=== PATIENT | female | born 1955 | race Two or more races ===

== ENCOUNTER → 2016-11-06 | Outpatient (CLI) | payer MEDICAID, MEDICARE, OTHER ==
[2015-01-20 00:20] VITALS: BP 214/96
[~2016-11-06] MED LIST: ATOR10TA60 PO; FLUT1DIS IH; INSU100I17 SQ; INSU100V8 SQ; LEVO25TA4 PO; LISI1TAB5 PO; METF500T4 PO
--- NOTE | 2016-11-06 19:50 | CARD ---
APPROVED REPORT EXAM: Two-dimensional and M-mode echocardiogram with Doppler and color Doppler. Other Information Quality : GoodHR: 68bpm Rhythm : NSR INDICATION Fatigue Short of air RISK FACTORS Hypertension Obesity Hyperlipidemia Diabetes 2D DIMENSIONS RVDd2.4 (2.9-3.5cm)Left Atrium(2D)3.3 (1.6-4.0cm) IVSd1.0 (0.7-1.1cm)Aortic Root(2D)2.7 (2.0-3.7cm) LVDd4.1 (3.9-5.9cm)LVOT Diameter2.4 (1.8-2.4cm) PWd1.0 (0.7-1.1cm)LVDs2.4 (2.5-4.0cm) FS (%) 41.1 %SV55.2 ml LVEF(%)70.0 (>50%) Aortic Valve AoV Peak Ryan.150.0cm/sAoV VTI32.2cm AO Peak GR.9.0mmHgLVOT Peak Ryan.108.9cm/s AO Mean GR.5mmHgAVA (VMAX)3.41cm2 Mitral Valve MV E Urihwtnn90.9cm/sMV E Peak Gr.5mmHg MV DECEL [id number] A Dbcbgtcq818.7cm/s MV E Mean Gr.1mmHgE/A Ratio0.7 MV A [id number] Pulmonary Valve PV Peak Wwgqycvx32.6cm/s Pulmonary Vein S1 Nbdrmywc98.9cm/sD2 Jswvbnnv41.7cm/s PVa [id number] LEFT VENTRICLE The left ventricle is normal size. There is normal left ventricular wall thickness. The left ventricu lar systolic function is normal and the ejection fraction is within normal range. The Ejection Fracti on is 70 %. There is normal LV segmental wall motion. Transmitral Doppler flow pattern is Grade I-abn ormal relaxation pattern. RIGHT VENTRICLE The right ventricle is normal size. There is normal right ventricular wall thickness. The right ventr icular systolic function is normal. ATRIA The left atrium is moderately dilated. The right atrium size is normal. The interatrial septum is int act with no evidence for an atrial septal defect or patent foramen ovale as noted on 2-D or Doppler i maging. AORTIC VALVE The aortic valve is mildly sclerotic. The aortic valve is trileaflet. Doppler and Color Flow revealed no significant aortic regurgitation. There is no significant aortic valvular stenosis. MITRAL VALVE Mitral annular calcification is mild. The mitral valve leaflets are thickened. There is no evidence o f mitral valve prolapse. There is no mitral valve stenosis. Doppler and Color Flow revealed no mitral valve regurgitation noted. TRICUSPID VALVE Doppler and Color Flow revealed no tricuspid valve regurgitation noted. Unable to determine pulmonary artery pressure at exam time. PULMONIC VALVE The pulmonic valve is not well visualized but appears to open adequately. Doppler and Color Flow reve aled trace pulmonic valvular regurgitation. GREAT VESSELS The aortic root is normal in size. The ascending aorta is normal in size. The pulmonary artery is nor mal. The IVC is normal in size and collapses >50% with inspiration. PERICARDIAL EFFUSION There is no evidence of significant pericardial effusion. Critical Notification Critical Value: No <Conclusion> The left ventricular systolic function is normal and the ejection fraction is within normal range. The Ejection Fraction is 70 %. Transmitral Doppler flow pattern is Grade I-abnormal relaxation pattern. The left atrium is moderately dilated. The right atrium size is normal. The aortic valve is mildly sclerotic. The aortic valve is trileaflet. Mitral annular calcification is mild. The mitral valve leaflets are thickened. Doppler and Color Flow revealed no mitral valve regurgitation noted. Doppler and Color Flow revealed no tricuspid valve regurgitation noted. Unable to determine pulmonary artery pressure at exam time. The pulmonic valve is not well visualized but appears to open adequately. Doppler and Color Flow revealed trace pulmonic valvular regurgitation. There is no evidence of significant pericardial effusion.
== END | disposition home or self-care (01) ==
LOC: ECHO 10:22
PROVIDERS: ATTEND Internal Medicine Cardiovascular Disease
DX: I51.7 Cardiomegaly (principal); I34.8 Other nonrheumatic mitral valve disorders; E11.9 Type 2 diabetes mellitus without complications; I10 Essential (primary) hypertension; E78.5 Hyperlipidemia, unspecified; E66.9 Obesity, unspecified
CPT/HCPCS: 93306

== ENCOUNTER 2017-04-04 06:53 | Outpatient (CLI) | payer OTHER, MEDICARE ==
[2017-04-04 07:18] LABS: ADD MAN DIFF? NO
[2017-04-04 07:32] LABS: BASO # 0.1 x10^3/uL (0.0-0.2); BASO % 1 % (0-3); EOS # 0.2 x10^3/uL (0.0-0.7); EOS % 3 % (0-3); HEMATOCRIT 29.6 % (36.0-47.0); HEMOGLOBIN 9.6 g/dL (12.0-15.5); LYMPH # 1.5 x10^3/uL (1.0-4.8); LYMPH % 23 % (24-48); MEAN CORPUSCULAR HEMOGLOBIN 28 pg (25-35); MEAN CORPUSCULAR HGB CONC 33 g/dL (31-37); MEAN CORPUSCULAR VOLUME 85 fL (79-100); MONO # 0.4 x10^3/uL (0.0-1.1); MONO % 6 % (0-9); NEUT # 4.5 x10^3uL (1.8-7.7); NEUT % 68 % (31-73); PLATELET COUNT 248 x10^3/uL (140-400); RED BLOOD COUNT 3.48 x10^6/uL (3.50-5.40); RED CELL DISTRIBUTION WIDTH 13.3 % (11.5-14.5); WHITE BLOOD COUNT 6.7 x10^3/uL (4.0-11.0)
[2017-04-04 07:45] LABS: PROTHROMBIN TIME PATIENT 12.9 SEC (11.7-14.0)
[2017-04-04] MEDS ORDERED: MIDAZOLAM HCL/PF 5 MG/5 ML VIAL. (07:53)
[2017-04-04] MEDS ORDERED: NALOXONE 0.4 MG/ML VIAL. (07:54)
[2017-04-04] MEDS ORDERED: fentaNYL PF VIAL 250 MCG/5 ML VIAL (07:54)
[2017-04-04] MEDS ORDERED: FLUMAZENIL 0.5 MG/5 ML VIAL. IV (07:54)
[2017-04-04] MEDS ORDERED: LIDOCAINE WITH 8.4% SOD BICARB 3 ML DISP.SYRIN. IJ ×2 (08:06→08:22)
[2017-04-04] MEDS ORDERED: GELATIN SPONGE SIZE 12-7MM SPONGE. (08:06)
[2017-04-04] MEDS ORDERED: hydrALAZINE 20 MG/ML VIAL. (08:35)
[2017-04-04] MEDS: LIDOCAINE WITH 8.4% SOD BICARB 3 ML DISP.SYRIN. IJ (09:09)
[2017-04-04] MEDS: fentaNYL PF VIAL 250 MCG/5 ML VIAL IV (09:10)
[2017-04-04] MEDS: MIDAZOLAM HCL/PF 5 MG/5 ML VIAL. IV (09:11)
== END 2017-04-04 13:30 | disposition home or self-care (01) ==
LOC: INTRAD 06:53
DX: R80.9 Proteinuria, unspecified (principal); Z79.01 Long term (current) use of anticoagulants; Z88.1 Allergy status to other antibiotic agents
CPT/HCPCS: 36415; 50200; 77012; 85025; 85610; 99152; 99153; J2250; J3010

== ENCOUNTER 2017-04-08 14:41 | Inpatient (IN) | payer OTHER, MEDICARE ==
[2017-04-08 15:20] LABS: ADD MAN DIFF? NO
[2017-04-08 15:22] LABS: BASO # 0.1 x10^3/uL (0.0-0.2); BASO % 1 % (0-3); EOS # 0.1 x10^3/uL (0.0-0.7); EOS % 2 % (0-3); HEMATOCRIT 27.6 % (36.0-47.0); HEMOGLOBIN 9.2 g/dL (12.0-15.5); LYMPH # 1.2 x10^3/uL (1.0-4.8); LYMPH % 16 % (24-48); MEAN CORPUSCULAR HEMOGLOBIN 29 pg (25-35); MEAN CORPUSCULAR HGB CONC 34 g/dL (31-37); MEAN CORPUSCULAR VOLUME 86 fL (79-100); MONO # 0.4 x10^3/uL (0.0-1.1); MONO % 5 % (0-9); NEUT # 5.5 x10^3uL (1.8-7.7); NEUT % 76 % (31-73); PLATELET COUNT 259 x10^3/uL (140-400); RED BLOOD COUNT 3.22 x10^6/uL (3.50-5.40); WHITE BLOOD COUNT 7.4 x10^3/uL (4.0-11.0)
[2017-04-08 15:30] LABS: ANION GAP 13 (6-14); BLOOD UREA NITROGEN 46 mg/dL (7-20); BUN/CREATININE RATIO 14 (6-20); CARBON DIOXIDE 19 mmol/L (21-32); CHLORIDE 106 mmol/L (98-107); CREATININE 3.3 mg/dL (0.6-1.0); GFR 14.1; GLUCOSE 169 mg/dL (70-99); POTASSIUM 4.2 mmol/L (3.5-5.1); SODIUM 138 mmol/L (136-145)
[2017-04-08 15:36] LABS: ALBUMIN 2.4 g/dL (3.4-5.0); ALBUMIN/GLOBULIN RATIO 0.5 (1.0-1.7); ALK PHOS 113 U/L (46-116); ALT (SGPT) 15 U/L (14-59); AST (SGOT) 17 U/L (15-37); TOTAL BILIRUBIN 0.2 mg/dL (0.2-1.0); TOTAL PROTEIN 6.8 g/dL (6.4-8.2)
[2017-04-08 15:36] LABS: D-DIMER 1.51 ug/mlFEU (0.00-0.50)
[2017-04-08 15:41] LABS: TROPONINI < 0.017 ng/mL (0.000-0.055)
[2017-04-08 15:48] LABS: NT-PRO BNP 2374 pg/mL (0-124)
[2017-04-08 15:48] LABS: CKMB INDEX 1.1 % (0-4); CKMB MASS 2.7 ng/mL (0.0-3.6); CREATINE KINASE 250 U/L (26-192)
[2017-04-08 16:14] LABS: BACTERIA,URINE FEW /HPF (0-FEW); BILIRUBIN,URINE NEGATIVE (NEG); CLARITY,URINE CLEAR; COLOR,URINE YELLOW; GLUCOSE,URINE 500 mg/dL (NEG); NITRITE,URINE NEGATIVE (NEG); PH,URINE 6.5; PROTEIN,URINE >=300 mg/dL (NEG-TRACE); SQUAMOUS EPITHELIAL CELL,UR MOD /LPF; UROBILINOGEN,URINE 0.2 mg/dL (0.2 mg/dL); WBC,URINE OCC /HPF (0-4)
[2017-04-08 16:15] LABS: HYALINE CASTS, URINE FEW /HPF
[2017-04-08] MEDS ORDERED: ONDANSETRON PF 4 MG/2 ML VIAL. IV (16:15)
[2017-04-08] MEDS ORDERED: ACETAMINOPHEN 325 MG TABLET. PO (16:15)
[2017-04-08 17:44] LABS: POC GLUCOSE 110 mg/dL (70-99)
[2017-04-08] MEDS: INSULIN ASPART 300 UNITS/3 ML INSULN.PEN SQ (18:09)
[2017-04-08] MEDS: BUDESONIDE 0.5 MG/2 ML NEBU. NEB (20:04)
[2017-04-08] MEDS: ALBUTEROL SULFATE 2.5 MG/3 ML NEBU. NEB (20:04)
[2017-04-08] MEDS: ATORVASTATIN CALCIUM 40 MG TABLET. PO (20:29)
[2017-04-08] MEDS: METOPROLOL TART IMMED RELEASE 50 MG TABLET. PO (20:30)
[2017-04-08] MEDS: INSULIN DETEMIR 300 UNITS/3 ML INSULN.PEN. SQ (20:38)
[2017-04-08] MEDS ORDERED: NON FORMULARY ITEM (Fluticasone/Salmeterol (Advair 250-50 Diskus) 1 INH) IH (21:00)
[2017-04-08 21:05] LABS: POC GLUCOSE 56 mg/dL (70-99)
[2017-04-08 21:05] LABS: POC GLUCOSE 50 mg/dL (70-99)
[2017-04-08 21:55] LABS: POC GLUCOSE 69 mg/dL (70-99)
[2017-04-08 21:55] LABS: POC GLUCOSE 61 mg/dL (70-99)
[2017-04-08 23:18] LABS: POC GLUCOSE 70 mg/dL (70-99)
[2017-04-09 03:01] LABS: POC GLUCOSE 50 mg/dL (70-99)
[2017-04-09] MEDS: DEXTROSE 50% 25 GM / 50ML DISP.SYRIN. IV (03:02)
[2017-04-09 04:03] LABS: POC GLUCOSE 81 mg/dL (70-99)
[2017-04-09 05:42] LABS: ADD MAN DIFF? NO
[2017-04-09 05:52] LABS: BASO # 0.1 x10^3/uL (0.0-0.2); BASO % 1 % (0-3); EOS # 0.2 x10^3/uL (0.0-0.7); EOS % 2 % (0-3); HEMATOCRIT 25.8 % (36.0-47.0); HEMOGLOBIN 8.4 g/dL (12.0-15.5); LYMPH # 1.1 x10^3/uL (1.0-4.8); LYMPH % 15 % (24-48); MEAN CORPUSCULAR HEMOGLOBIN 28 pg (25-35); MEAN CORPUSCULAR HGB CONC 33 g/dL (31-37); MEAN CORPUSCULAR VOLUME 85 fL (79-100); MONO # 0.5 x10^3/uL (0.0-1.1); MONO % 7 % (0-9); NEUT # 5.4 x10^3uL (1.8-7.7); NEUT % 76 % (31-73); PLATELET COUNT 233 x10^3/uL (140-400); RED BLOOD COUNT 3.04 x10^6/uL (3.50-5.40); WHITE BLOOD COUNT 7.1 x10^3/uL (4.0-11.0)
[2017-04-09] MEDS: LEVOTHYROXINE 25 MCG TABLET. PO (06:06)
[2017-04-09 06:11] LABS: ANION GAP 10 (6-14); BLOOD UREA NITROGEN 45 mg/dL (7-20); CALCIUM 7.9 mg/dL (8.5-10.1); CARBON DIOXIDE 20 mmol/L (21-32); CHLORIDE 109 mmol/L (98-107); CREATININE 3.2 mg/dL (0.6-1.0); GFR 14.6; GLUCOSE 80 mg/dL (70-99); POTASSIUM 4.3 mmol/L (3.5-5.1); SODIUM 139 mmol/L (136-145)
[2017-04-09] MEDS: BUDESONIDE 0.5 MG/2 ML NEBU. NEB ×2 (07:12→20:00)
[2017-04-09] MEDS: ALBUTEROL SULFATE 2.5 MG/3 ML NEBU. NEB ×4 (07:12→20:00)
[2017-04-09 07:37] LABS: POC GLUCOSE 77 mg/dL (70-99)
[2017-04-09] MEDS: amLODIPine BESYLATE 10 MG TABLET PO (09:15)
[2017-04-09] MEDS: METOPROLOL TART IMMED RELEASE 50 MG TABLET. PO ×2 (09:15→22:14)
[2017-04-09 11:24] LABS: POC GLUCOSE 160 mg/dL (70-99)
[2017-04-09] MEDS: FUROSEMIDE 40 MG/4 ML VIAL. IVP (12:15)
[2017-04-09] MEDS: INSULIN ASPART 300 UNITS/3 ML INSULN.PEN SQ ×2 (12:18→16:30)
[2017-04-09 16:35] LABS: POC GLUCOSE 82 mg/dL (70-99)
[2017-04-09] MEDS: SODIUM BICARBONATE 650 MG TABLET. PO ×2 (17:55→22:13)
[2017-04-09 21:22] LABS: POC GLUCOSE 137 mg/dL (70-99)
[2017-04-09] MEDS: ATORVASTATIN CALCIUM 40 MG TABLET. PO (22:13)
[2017-04-09] MEDS: INSULIN DETEMIR 300 UNITS/3 ML INSULN.PEN. SQ (22:18)
[2017-04-09] MEDS: DARBEPOETIN ALFA 60 MCG/0.3 ML DISP.SYRIN. SQ (22:23)
[2017-04-10 05:40] LABS: ANION GAP 14 (6-14); BLOOD UREA NITROGEN 43 mg/dL (7-20); CALCIUM 8.1 mg/dL (8.5-10.1); CARBON DIOXIDE 18 mmol/L (21-32); CHLORIDE 110 mmol/L (98-107); CREATININE 3.1 mg/dL (0.6-1.0); GFR 15.2; GLUCOSE 105 mg/dL (70-99); MAGNESIUM 2.1 mg/dL (1.8-2.4); PHOSPHORUS 4.7 mg/dL (2.6-4.7); SODIUM 142 mmol/L (136-145)
[2017-04-10 05:43] LABS: % SAT IRON 19 % (15-34); IRON,SERUM 29 ug/dL (50-170)
[2017-04-10] MEDS: LEVOTHYROXINE 25 MCG TABLET. PO (06:07)
[2017-04-10] MEDS: BUDESONIDE 0.5 MG/2 ML NEBU. NEB ×2 (07:26→20:00)
[2017-04-10] MEDS: ALBUTEROL SULFATE 2.5 MG/3 ML NEBU. NEB ×4 (07:26→20:00)
[2017-04-10] MEDS: INSULIN ASPART 300 UNITS/3 ML INSULN.PEN SQ ×3 (07:30→18:30)
[2017-04-10] MEDS: SODIUM BICARBONATE 650 MG TABLET. PO ×3 (09:34→20:42)
[2017-04-10] MEDS: amLODIPine BESYLATE 10 MG TABLET PO (09:35)
[2017-04-10] MEDS: METOPROLOL TART IMMED RELEASE 50 MG TABLET. PO ×2 (09:36→20:43)
[2017-04-10] MEDS: FUROSEMIDE 40 MG/4 ML VIAL. IVP ×3 (09:36→22:20)
[2017-04-10 15:51] LABS: POC GLUCOSE 97 mg/dL (70-99)
[2017-04-10] MEDS: IRON POLYSACCHARIDE COMPLEX 150 MG CAPSULE PO (16:51)
[2017-04-10 18:21] LABS: POC GLUCOSE 160 mg/dL (70-99)
[2017-04-10] MEDS: ATORVASTATIN CALCIUM 40 MG TABLET. PO (20:42)
[2017-04-10 21:40] LABS: POC GLUCOSE 118 mg/dL (70-99)
[2017-04-10] MEDS: INSULIN DETEMIR 300 UNITS/3 ML INSULN.PEN. SQ (22:27)
[2017-04-11] MEDS: FUROSEMIDE 40 MG/4 ML VIAL. IVP ×3 (05:42→15:57)
[2017-04-11] MEDS: LEVOTHYROXINE 25 MCG TABLET. PO (05:42)
[2017-04-11 06:25] LABS: ANION GAP 10 (6-14); BLOOD UREA NITROGEN 46 mg/dL (7-20); CALCIUM 7.8 mg/dL (8.5-10.1); CARBON DIOXIDE 22 mmol/L (21-32); CHLORIDE 108 mmol/L (98-107); CREATININE 3.5 mg/dL (0.6-1.0); GFR 13.2; GLUCOSE 82 mg/dL (70-99); MAGNESIUM 1.9 mg/dL (1.8-2.4); POTASSIUM 3.9 mmol/L (3.5-5.1); SODIUM 140 mmol/L (136-145)
[2017-04-11] MEDS: BUDESONIDE 0.5 MG/2 ML NEBU. NEB ×2 (07:07→19:46)
[2017-04-11] MEDS: ALBUTEROL SULFATE 2.5 MG/3 ML NEBU. NEB ×4 (07:07→19:45)
[2017-04-11 07:11] LABS: POC GLUCOSE 74 mg/dL (70-99)
[2017-04-11] MEDS: INSULIN ASPART 300 UNITS/3 ML INSULN.PEN SQ ×2 (07:30→12:57)
[2017-04-11 07:55] LABS: POC GLUCOSE 73 mg/dL (70-99)
[2017-04-11] MEDS: SODIUM BICARBONATE 650 MG TABLET. PO ×3 (09:44→21:49)
[2017-04-11] MEDS: IRON POLYSACCHARIDE COMPLEX 150 MG CAPSULE PO (09:44)
[2017-04-11] MEDS: METOPROLOL TART IMMED RELEASE 50 MG TABLET. PO ×2 (09:45→21:49)
[2017-04-11] MEDS: amLODIPine BESYLATE 10 MG TABLET PO (09:45)
[2017-04-11 11:05] LABS: POC GLUCOSE 129 mg/dL (70-99)
[2017-04-11 13:20] LABS: CREAT CLEAR 24 16 mL/min (88-128); CREATININE UR 24HR 744 mg/24 hr (800-1800); PROTEIN 24 HR UR 8042 mg/24 hr (30-150); TOTAL SERUM CREATININE 3.26 mg/dL (0.57-1.00); UR PROTEIN 345.9 mg/dL (Not Estab.); eGFR AFRICAN-AMER 17 (>59); eGFR NON AFRICAN-AMER 14 (>59)
[2017-04-11 16:34] LABS: POC GLUCOSE 57 mg/dL (70-99)
[2017-04-11 21:25] LABS: POC GLUCOSE 151 mg/dL (70-99)
[2017-04-11] MEDS: metOLazone 2.5 MG TABLET PO (21:48)
[2017-04-11] MEDS: FUROSEMIDE 40 MG TABLET. PO (21:49)
[2017-04-11] MEDS: ATORVASTATIN CALCIUM 40 MG TABLET. PO (21:49)
[2017-04-11] MEDS: INSULIN DETEMIR 300 UNITS/3 ML INSULN.PEN. SQ (21:56)
[2017-04-12] MEDS: LEVOTHYROXINE 25 MCG TABLET. PO (06:24)
[2017-04-12] MEDS: FUROSEMIDE 40 MG TABLET. PO (06:24)
[2017-04-12 06:57] LABS: ANION GAP 12 (6-14); BLOOD UREA NITROGEN 46 mg/dL (7-20); CALCIUM 8.1 mg/dL (8.5-10.1); CARBON DIOXIDE 24 mmol/L (21-32); CHLORIDE 108 mmol/L (98-107); CREATININE 3.3 mg/dL (0.6-1.0); GFR 14.1; GLUCOSE 98 mg/dL (70-99); MAGNESIUM 1.9 mg/dL (1.8-2.4); POTASSIUM 3.6 mmol/L (3.5-5.1); SODIUM 144 mmol/L (136-145)
[2017-04-12 07:29] LABS: POC GLUCOSE 93 mg/dL (70-99)
[2017-04-12] MEDS: BUDESONIDE 0.5 MG/2 ML NEBU. NEB (07:32)
[2017-04-12] MEDS: ALBUTEROL SULFATE 2.5 MG/3 ML NEBU. NEB ×3 (07:32→15:32)
[2017-04-12] MEDS: SODIUM BICARBONATE 650 MG TABLET. PO (08:38)
[2017-04-12] MEDS: METOPROLOL TART IMMED RELEASE 50 MG TABLET. PO (08:39)
[2017-04-12] MEDS: amLODIPine BESYLATE 10 MG TABLET PO (08:39)
[2017-04-12] MEDS: IRON POLYSACCHARIDE COMPLEX 150 MG CAPSULE PO (08:39)
[2017-04-12 11:29] LABS: POC GLUCOSE 134 mg/dL (70-99)
[2017-04-12] MEDS: ASPIRIN ENTERIC COATED 81 MG TABLET.DR. PO (12:05)
[2017-04-12] MEDS ORDERED: FUROSEMIDE 40 MG TABLET. PO (14:00)
[2017-04-12] MEDS ORDERED: INSULIN ASPART 300 UNITS/3 ML INSULN.PEN SQ (17:00)
== END 2017-04-12 16:23 | disposition home or self-care (01) | DRG 682 ==
LOC: ER 14:41 → 5 SOUTH 15:46
DX: N17.9 Acute kidney failure, unspecified (principal); I50.33 Acute on chronic diastolic (congestive) heart failure; E43 Unspecified severe protein-calorie malnutrition; I13.2 Hypertensive heart and chronic kidney disease with heart failure and with stage 5 chronic kidney disease, or end stage renal disease; E11.21 Type 2 diabetes mellitus with diabetic nephropathy; E87.2 Acidosis; E11.22 Type 2 diabetes mellitus with diabetic chronic kidney disease; N18.5 Chronic kidney disease, stage 5; Z68.38 Body mass index [BMI] 38.0-38.9, adult; D63.8 Anemia in other chronic diseases classified elsewhere; E03.9 Hypothyroidism, unspecified; E11.65 Type 2 diabetes mellitus with hyperglycemia; E66.01 Morbid (severe) obesity due to excess calories; E78.5 Hyperlipidemia, unspecified; F41.9 Anxiety disorder, unspecified; J45.909 Unspecified asthma, uncomplicated; N04.9 Nephrotic syndrome with unspecified morphologic changes; Z83.3 Family history of diabetes mellitus; Z90.710 Acquired absence of both cervix and uterus; Z79.4 Long term (current) use of insulin
CPT/HCPCS: 36415; 71046; 80048; 80053; 81001; 82553; 82575; 82962; 83540; 83550; 83735; 83880; 84100; 84156; 84484; 85025; 85379; 93005; 93306; 94640; 94760; 96372; 99285; 99285-25; J0881; J1815; J1940; J7042; J7613; J7626

== ENCOUNTER 2017-08-27 10:05 | Day surgery (SDC) | payer OTHER, MEDICARE ==
[~2017-08-27 10:05] MED LIST changes: -ATOR10TA60 PO; -FLUT1DIS IH; -INSU100I17 SQ; -INSU100V8 SQ; -LEVO25TA4 PO; -LISI1TAB5 PO; -METF500T4 PO; +MORPHINE SULFATE 2 MG/ML DISP.SYRIN. IV; +ONDANSETRON PF 4 MG/2 ML VIAL. IV; +fentaNYL PF VIAL 100 MCG/2 ML VIAL IV
[2017-08-27] MEDS ORDERED: PAPAVERINE 60 MG/2 ML VIAL FOR OR ONLY. (10:41)
[2017-08-27] MEDS ORDERED: SURGICEL FIBRILLAR 1X2 EACH. ×2 (10:41→13:54)
[2017-08-27] MEDS ORDERED: PROTAMINE 50 MG/5 ML VIAL. IV (10:41)
[2017-08-27] MEDS ORDERED: THROMBIN TOPICAL 5,000 UNIT VIAL. (10:41)
[2017-08-27 10:46] LABS: ADD MAN DIFF? NO
[2017-08-27 10:53] LABS: BASO # 0.1 x10^3/uL (0.0-0.2); BASO % 1 % (0-3); EOS # 0.7 x10^3/uL (0.0-0.7); EOS % 10 % (0-3); HEMATOCRIT 30.9 % (36.0-47.0); HEMOGLOBIN 9.9 g/dL (12.0-15.5); LYMPH # 1.3 x10^3/uL (1.0-4.8); LYMPH % 20 % (24-48); MEAN CORPUSCULAR HEMOGLOBIN 27 pg (25-35); MEAN CORPUSCULAR HGB CONC 32 g/dL (31-37); MEAN CORPUSCULAR VOLUME 86 fL (79-100); MONO # 0.4 x10^3/uL (0.0-1.1); MONO % 6 % (0-9); NEUT # 4.1 x10^3uL (1.8-7.7); NEUT % 63 % (31-73); PLATELET COUNT 321 x10^3/uL (140-400); RED CELL DISTRIBUTION WIDTH 16.5 % (11.5-14.5); WHITE BLOOD COUNT 6.5 x10^3/uL (4.0-11.0)
[2017-08-27] MEDS: IV NORMAL SALINE 1000ML BAG 1,000 ML IV (10:54)
[2017-08-27 11:01] LABS: ANION GAP 13 (6-14); BLOOD UREA NITROGEN 39 mg/dL (7-20); CALCIUM 8.9 mg/dL (8.5-10.1); CARBON DIOXIDE 23 mmol/L (21-32); CHLORIDE 104 mmol/L (98-107); CREATININE 5.5 mg/dL (0.6-1.0); GFR 7.8; GLUCOSE 147 mg/dL (70-99); POTASSIUM 4.1 mmol/L (3.5-5.1); SODIUM 140 mmol/L (136-145)
[2017-08-27 11:18] LABS: PARTIAL THROMBOPLASTIN TIME 29 SEC (24-38); PROTHROMBIN TIME PATIENT 13.1 SEC (11.7-14.0)
[2017-08-27] MEDS: VANCOMYCIN 1GM IVPB FOR OMNI 250 ML IV (12:40)
[2017-08-27] MEDS: HEPARIN SODIUM 5,000 UNIT in IV NORMAL SALINE 500ML BAG 500 ML IRR (12:51)
[2017-08-27] MEDS ORDERED: SEVOFLURANE 31 TO 60 MINUTES. IH (12:52)
[2017-08-27] MEDS ORDERED: PROPOFOL 20 ML IV ×2 (12:52→14:44)
[2017-08-27] MEDS ORDERED: ONDANSETRON PF 4 MG/2 ML VIAL. (13:09)
[2017-08-27] MEDS ORDERED: ePHEDrine PF IN SALINE 50 MG/5 ML DISP.SYRIN IV (13:09)
[2017-08-27] MEDS ORDERED: DEXAMETHASONE SOD PHOS 20 MG/5 ML VIAL. (13:09)
[2017-08-27] MEDS: LIDOCAINE 1% PF 30 ML VIAL. (13:21)
[2017-08-27] MEDS ORDERED: LIDOCAINE 1% PF 30 ML VIAL. (13:54)
[2017-08-27] MEDS ORDERED: HEPARIN for IV BOLUS 10,000 UNIT/10 ML VIAL. (14:12)
[2017-08-27] MEDS ORDERED: fentaNYL PF VIAL 100 MCG/2 ML VIAL ×3 (14:43→17:08)
[2017-08-27] MEDS ORDERED: LIDOCAINE 2% PF Vial for OR 5 ML VIAL. (14:44)
[2017-08-27] MEDS ORDERED: HEPARIN SODIUM 5,000 UNIT in IV NORMAL SALINE 500ML BAG 500 ML IRR (15:00)
[2017-08-27] MEDS: fentaNYL PF VIAL 100 MCG/2 ML VIAL IV ×2 (15:00→17:14)
[2017-08-27 17:27] LABS: POC GLUCOSE 209 mg/dL (70-99)
[2017-08-27] MEDS: HYDROcodone/APAP 5/325MG 1 TAB TABLET PO (17:45)
[2017-08-27] MEDS: INSULIN ASPART 100 UNIT/ML 10ML VIAL. SQ (17:49)
[2017-08-27] MEDS ORDERED: PROCHLORPERAZINE 10 MG/2 ML VIAL. (17:55)
[2017-08-27] MEDS: PROCHLORPERAZINE 10 MG/2 ML VIAL. IV (17:58)
[2017-08-27] MEDS: LIDOCAINE 1% PF 2 ML VIAL. ID (18:30)
== END 2017-08-27 18:32 | disposition home or self-care (01) ==
LOC: SURG 10:05
DX: T82.898A Other specified complication of vascular prosthetic devices, implants and grafts, initial encounter (principal); I13.2 Hypertensive heart and chronic kidney disease with heart failure and with stage 5 chronic kidney disease, or end stage renal disease; E11.22 Type 2 diabetes mellitus with diabetic chronic kidney disease; I50.9 Heart failure, unspecified; N18.6 End stage renal disease; Z99.2 Dependence on renal dialysis; Z88.1 Allergy status to other antibiotic agents; Z98.41 Cataract extraction status, right eye; Z96.1 Presence of intraocular lens; E78.00 Pure hypercholesterolemia, unspecified; J45.909 Unspecified asthma, uncomplicated; E11.36 Type 2 diabetes mellitus with diabetic cataract; E03.9 Hypothyroidism, unspecified; Z90.49 Acquired absence of other specified parts of digestive tract; Z90.710 Acquired absence of both cervix and uterus; M19.90 Unspecified osteoarthritis, unspecified site; Z83.3 Family history of diabetes mellitus; Z88.8 Allergy status to other drugs, medicaments and biological substances; Z79.899 Other long term (current) drug therapy; Z79.82 Long term (current) use of aspirin; Z79.4 Long term (current) use of insulin; Y83.2 Surgical operation with anastomosis, bypass or graft as the cause of abnormal reaction of the patient, or of later complication, without mention of misadventure at the time of the procedure; Y92.89 Other specified places as the place of occurrence of the external cause; Z82.49 Family history of ischemic heart disease and other diseases of the circulatory system
CPT/HCPCS: 36415; 80048; 82962; 85025; 85610; 85730; A7015; J0780; J1100; J1644; J2405; J2440; J2704; J3010; J3370; J7040

== ENCOUNTER → 2018-01-15 | Outpatient (CLI) | payer OTHER, MEDICARE ==
[2017-11-29 10:38] VITALS: BP 134/67
[~2018-01-15] MED LIST changes: +AMLO10TA6 PO; +ASPI-612 PO; +ATEN50TA PO; +ATOR10TA60 PO; +ATOR40TA PO; +CALC300T5 PO; +CEFEPIME HCL IVP; +DARB60DI SQ; +DARBEPOETIN ALFA IN POLYSORBAT SQ; +FLUC100T4 PO; +FLUT1DIS IH; +FLUT1DIS3 IH; +FLUT9.9S NS; +FURO40TA4 PO; +HYDR-971 PO; +HYDR25TA PO; +INSU100C4 SQ; +INSU100I13 SQ; +INSU100I17 SQ; +INSU100V8 SQ; +IPRA3AMP29 NEB; +IRON150C11 PO; +KETO5DRO24 OU; +LEVO25TA4 PO; +LEVO500T59 PO; +LISI-334 PO; +LISI1TAB5 PO; +METF500T16 PO; +METO50TA6 PO; -MORPHINE SULFATE 2 MG/ML DISP.SYRIN. IV; +NEPA1.7D OU; +OFLO5DRO4 OU; -ONDANSETRON PF 4 MG/2 ML VIAL. IV; +PRED-220 PO; +PRED20TA PO; +PRED5DRO16 OU; +PROP10DR3 EACHEYE; +SODI650T PO; +VIT1TABL57 PO; -fentaNYL PF VIAL 100 MCG/2 ML VIAL IV
[2018-01-15 14:46] LABS: BASE EXCESS ABG 0 mmol/L (-3-3); HCO3 ABG 25 mmol/L (21-28); PCO2 ABG 41 mmHg (35-46); PO2 ABG 90 mmHg (65-108); SAT O2 ABG 96 % (92-99)
[2018-01-15 14:56] LABS: FIO2 ABG 21
== END | disposition home or self-care (01) ==
LOC: OPS 14:09
PROVIDERS: ATTEND Internal Medicine Pulmonary Disease
DX: I13.2 Hypertensive heart and chronic kidney disease with heart failure and with stage 5 chronic kidney disease, or end stage renal disease (principal); E11.22 Type 2 diabetes mellitus with diabetic chronic kidney disease; I50.9 Heart failure, unspecified; N18.5 Chronic kidney disease, stage 5; R06.02 Shortness of breath
CPT/HCPCS: 36600; 82805

== ENCOUNTER 2018-03-27 08:28 | Outpatient (CLI) | payer OTHER, MEDICARE ==
[~2018-03-27] VITALS: Ht 157.5 cm; Wt 76.2 kg
[2018-03-27] VITALS (7 sets, daily range): BP systolic 142–200; BP diastolic 68–81
[~2018-03-27 08:28] MED LIST changes: +CALC667T PO; +HYDR-3164 PO; -HYDR-971 PO; +VANC1VIA3 MC
[2018-03-27] MEDS ORDERED: IODIXANOL 320 MG/ML 100 ML VIAL. ONE ×3 (08:54→10:38)
[2018-03-27] MEDS ORDERED: LIDOCAINE WITH 8.4% SOD BICARB 3 ML DISP.SYRIN. ONE (08:55)
[2018-03-27] MEDS ORDERED: LISINOPRIL 20 MG TABLET PO ONE (09:00)
[2018-03-27 09:20] LABS: BASO % 1 % (0-3); EOS # 0.2 x10^3/uL (0.0-0.7); EOS % 4 % (0-3); HEMOGLOBIN 10.3 g/dL (12.0-15.5); LYMPH # 0.9 x10^3/uL (1.0-4.8); LYMPH % 23 % (24-48); MEAN CORPUSCULAR HEMOGLOBIN 28 pg (25-35); MEAN CORPUSCULAR HGB CONC 32 g/dL (31-37); MEAN CORPUSCULAR VOLUME 87 fL (79-100); MONO # 0.4 x10^3/uL (0.0-1.1); MONO % 11 % (0-9); NEUT # 2.4 x10^3uL (1.8-7.7); NEUT % 61 % (31-73); PLATELET COUNT 206 x10^3/uL (140-400); RED BLOOD COUNT 3.68 x10^6/uL (3.50-5.40); RED CELL DISTRIBUTION WIDTH 17.8 % (11.5-14.5)
[2018-03-27 09:24] LABS: CALCIUM 8.7 mg/dL (8.5-10.1); CREATININE 5.7 mg/dL (0.6-1.0); GFR 7.5; POTASSIUM 5.4 mmol/L (3.5-5.1)
[2018-03-27] MEDS ORDERED: amLODIPine BESYLATE 10 MG TABLET PO ONE (09:30)
[2018-03-27] MEDS ORDERED: METOPROLOL TART IMMED RELEASE 50 MG TABLET. PO ONE (09:30)
[2018-03-27] MEDS ORDERED: HEPARIN for IV BOLUS 10,000 UNIT/10 ML VIAL. ONE (10:05)
[2018-03-27] MEDS ORDERED: MIDAZOLAM HCL/PF 2 MG/2 ML VIAL. ONE (10:05)
[2018-03-27] MEDS ORDERED: fentaNYL PF VIAL 100 MCG/2 ML VIAL ONE ×2 (10:05→12:17)
[2018-03-27] MEDS ORDERED: ONDANSETRON PF 4 MG/2 ML VIAL. ONE (10:17)
[2018-03-27] MEDS ORDERED: MIDAZOLAM HCL/PF 2 MG/2 ML VIAL. IV ONE (10:30)
[2018-03-27] MEDS ORDERED: IODIXANOL 320 MG/ML 100 ML VIAL. IART ONE (10:30)
[2018-03-27] MEDS ORDERED: ONDANSETRON PF 4 MG/2 ML VIAL. IV ONE (10:30)
[2018-03-27] MEDS ORDERED: fentaNYL PF VIAL 100 MCG/2 ML VIAL IV ONE (10:30)
[2018-03-27] MEDS ORDERED: LIDOCAINE WITH 8.4% SOD BICARB 3 ML DISP.SYRIN. IJ ONE (10:30)
[2018-03-27] MEDS ORDERED: CONTRAST GIVEN. MC PRN (10:45)
[2018-03-27] MEDS ORDERED: HEPARIN for IV BOLUS 10,000 UNIT/10 ML VIAL. IV ONE (11:00)
--- NOTE | 2018-03-27 14:41 | NUR ---
Discharge Note: NILESH SUAZO Discharge instructions and discharge home medications reviewed with patient and and a copy given. All questions have been answered and understanding verbalized. Patient tolerated lunch well with no issues. The following instructions and handouts were given: Moderate sedation and shuntogram. Discontinued lines and drains: peripheral IV in left forearm, dressing clean dry intact. Patient discharged home with via wheelchair to private vehicle.
--- NOTE | 2018-04-11 09:17 | RAD ---
Left upper extremity fistulogram 03/27/2018 Indication: High venous pressures. Comparison study: None Discussion: The risks and benefits of the procedure discussed the patient. Informed consent was obtained. Timeout procedure was performed. The left upper extremity was prepped and draped using sterile barrier technique. Ultrasound evaluation demonstrates left upper extremity fistula to be patent through the mid arm. Tortuosity of fistula noted. By ultrasound arterial anastomosis appears to be patent. 1% lidocaine without epinephrine was administered for local anesthesia. The fistula was accessed directed towards venous outflow. Fistulogram was were obtained demonstrating significant tortuosity of the fistula outflow vein. A blind-ending loop is seen within the proximal outflow vein which may reflect the previously ligated vein. Contrast was refluxed across the arterial anastomosis which was found to be widely patent. Central venograms demonstrated occlusion of the outflow cephalic vein. A prominent collateral is developed between the subclavian vein and the cephalic vein. The patient was heparinized. The cephalic occlusion was crossed. 4 mm balloon angioplasty was unsuccessful due to inability to pass a balloon through the occlusion. A 2.5 mm balloon was able to be advanced through the occlusion and angioplasty performed. This restored flow, though the cephalic outflow is diminutive in size. Subsequent angioplasty 4 mm balloons was unsuccessful, with multiple ruptured balloons. A 4 mm cutting balloon was then used which improved diameter of the cephalic vein. The patient experienced discomfort with 4 mm angioplasty. A 6 mm self expanding covered stent was placed traversing the prior occlusion and postdilated to 5 mm. Repeat angiography demonstrates improved morphology and flow through the stented vein, though the vein is relatively small in size. No central stenosis is identified. The patient tolerated the procedure well without immediate complication. Sedation time: 2 hours Fluoroscopy time and dose was inadvertently not recorded. 1. Occlusion of the cephalic arch, which is the predominant outflow vein from the fistula. This is treated with covered stent placement, postdilated to 5 mm diameter. Though small, this is the maximal diameter achievable during today's procedure. 2. Significant tortuosity of outflow vein in the upper arm.
== END 2018-03-27 14:00 | disposition home or self-care (01) ==
LOC: INTRAD 08:28
PROVIDERS: ATTEND Internal Medicine Nephrology
DX: T82.898A Other specified complication of vascular prosthetic devices, implants and grafts, initial encounter (principal); E11.9 Type 2 diabetes mellitus without complications; Z79.4 Long term (current) use of insulin; Y83.2 Surgical operation with anastomosis, bypass or graft as the cause of abnormal reaction of the patient, or of later complication, without mention of misadventure at the time of the procedure; Y92.89 Other specified places as the place of occurrence of the external cause; Z88.1 Allergy status to other antibiotic agents; Z79.01 Long term (current) use of anticoagulants; Z79.899 Other long term (current) drug therapy
CPT/HCPCS: 36415; 36903; 76937; 80048; 85025; 85610; 99152; 99153; A4215; C1713; C1725; C1769; C1892; C1894; J1644; J2250; J2405; J3010

== ENCOUNTER 2018-06-13 08:05 | Inpatient (IN) | payer OTHER, MEDICARE ==
[~2018-06-13] VITALS: Ht 157.5 cm; Wt 61.3 kg
[~2018-06-13 08:05] MED LIST changes: -AMLO10TA6 PO; +AMLO10TA8 PO; -CALC667T PO; +CALC667T4 PO
[2018-06-13] MEDS ORDERED: MORPHINE SULFATE 10 MG/ML VIAL. IV ONE (08:30)
--- NOTE | 2018-06-13 08:40 | PHYS DOC ---
Past Medical History Past Medical History: Asthma, Diabetes-Type II, High Cholesterol, Hypertension , Hypothyroid, Renal Failure Past Surgical History: Cholecystectomy, Hysterectomy, Other Additional Past Surgical Histo: HERNIA REPAIR, RT CHEST DIALYSIS CATH, LT FISTULA Alcohol Use: None Drug Use: None Adult General Chief Complaint Chief Complaint: ABDOMINAL PAIN HPI HPI Patient is a 63 year old female with history of renal failure on dialysis Sunday, , Sunday last dialyzed on Sunday, hypertension, high cholesterol, diabetes type 2, who presents to the ED today complaining of 10 out of 10 sharp constant mid abdominal pain that began yesterday after eating. Patient is also complaining of nausea, denies vomiting, denies diarrhea. She states she has history of abdominal hernia that was repaired 4 years ago. Patient denies anything specifically exacerbating or relieving her pain. PCP Dr. Bardales Review of Systems Review of Systems Constitutional: Denies fever or chills [] Eyes: Denies change in visual acuity, redness, or eye pain [] HENT: Denies nasal congestion or sore throat [] Respiratory: Denies cough or shortness of breath [] Cardiovascular: No additional information not addressed in HPI [] GI: Reports abdominal pain with nausea, denies vomiting, bloody stools or diarrhea [] : Denies dysuria or hematuria [] Musculoskeletal: Denies back pain or joint pain [] Integument: Denies rash or skin lesions [] Neurologic: Denies headache, focal weakness or sensory changes [] All other systems were reviewed and found to be within normal limits, except as documented in this note. Current Medications Current Medications Current Medications Medications (Trade) Dose Ordered Sig/[facility] Start Time Stop Time Status Last Admin Dose Admin Morphine Sulfate (Morphine Sulfate) 5 mg 1X ONCE 06/13/18 08:30 06/13/18 08:32 DC 06/13/18 09:36 5 MG Ondansetron HCl (Zofran) 4 mg 1X ONCE 06/13/18 09:00 06/13/18 09:01 DC 06/13/18 09:36 4 MG Allergies Allergies Allergies Coded Allergies Type Severity Reaction Last Updated Verified cefazolin Allergy Intermediate Rash 03/06/18 Yes Physical Exam Physical Exam Constitutional: Well developed, well nourished, no acute distress, non-toxic appearance. [] HENT: Normocephalic, atraumatic, bilateral external ears normal, oropharynx moist, no oral exudates, nose normal. [] Eyes: PERRLA, EOMI, conjunctiva normal, no discharge. [] Neck: Normal range of motion, no tenderness, supple, no stridor. [] Cardiovascular:Heart rate regular rhythm, no murmur [] Lungs & Thorax: Bilateral breath sounds clear to auscultation [] Abdomen: Old healed surgical incision noted midline abdomen. Tenderness diffusely throughout the abdomen worse around the umbilicus hernia with a reducible umbilicus hernia. Bowel sounds normal, soft, no tenderness, no masses , no pulsatile masses. [] Skin: Warm, dry, no erythema, no rash. [] Back: No tenderness, no CVA tenderness. [] Extremities: No tenderness, no cyanosis, no clubbing, ROM intact, no edema. [] Neurologic: Alert and oriented X 3, normal motor function, normal sensory function, no focal deficits noted. [] Psychologic: Affect normal, judgement normal, mood normal. [] Current Patient Data Vital Signs Vital Signs Date Time Temp Pulse Resp B/P (MAP) Pulse Ox O2 Delivery O2 Flow Rate FiO2 06/13/18 09:57 90 15 174/74 (107) 97 Nasal Cannula 2.0 06/13/18 08:11 98.6 98.6 Lab Values Laboratory Tests Test 06/13/18 08:54 White Blood Count 7.7 x10^3/uL (4.0-11.0) Red Blood Count 2.63 x10^6/uL (3.50-5.40) L Hemoglobin 7.7 g/dL (12.0-15.5) L Hematocrit 23.3 % (36.0-47.0) L Mean Corpuscular Volume 89 fL (79-100) Mean Corpuscular Hemoglobin 29 pg (25-35) Mean Corpuscular Hemoglobin Concent 33 g/dL (31-37) Red Cell Distribution Width 17.3 % (11.5-14.5) H Platelet Count 246 x10^3/uL (140-400) Neutrophils (%) (Auto) 84 % (31-73) H Lymphocytes (%) (Auto) 6 % (24-48) L Monocytes (%) (Auto) 7 % (0-9) Eosinophils (%) (Auto) 3 % (0-3) Basophils (%) (Auto) 1 % (0-3) Neutrophils # (Auto) 6.5 x10^3uL (1.8-7.7) Lymphocytes # (Auto) 0.5 x10^3/uL (1.0-4.8) L Monocytes # (Auto) 0.5 x10^3/uL (0.0-1.1) Eosinophils # (Auto) 0.2 x10^3/uL (0.0-0.7) Basophils # (Auto) 0.1 x10^3/uL (0.0-0.2) Sodium Level 137 mmol/L (136-145) Potassium Level 5.4 mmol/L (3.5-5.1) H Chloride Level 94 mmol/L (98-107) L Carbon Dioxide Level 28 mmol/L (21-32) Anion Gap 15 (6-14) H Blood Urea Nitrogen 65 mg/dL (7-20) H Creatinine 7.3 mg/dL (0.6-1.0) H Estimated GFR (Cockcroft-Gault) 5.6 BUN/Creatinine Ratio 9 (6-20) Glucose Level 132 mg/dL (70-99) H Calcium Level 8.6 mg/dL (8.5-10.1) Total Bilirubin 0.4 mg/dL (0.2-1.0) Aspartate Amino Transferase (AST) 19 U/L (15-37) Alanine Aminotransferase (ALT) 20 U/L (14-59) Alkaline Phosphatase 79 U/L (46-116) Troponin I Quantitative < 0.017 ng/mL (0.000-0.055) Total Protein 7.1 g/dL (6.4-8.2) Albumin 3.4 g/dL (3.4-5.0) Albumin/Globulin Ratio 0.9 (1.0-1.7) L Lipase 135 U/L (73-393) Laboratory Tests 06/13/18 08:54 Laboratory Tests 06/13/18 08:54 EKG EKG 08:[address] Medrano sinus rhythm 91 no STEMI. Radiology/Procedures Radiology/Procedures []PROCEDURE: CT ABDOMEN PELVIS WO CONTRAST PQRS Compliance Statement: One or more of the following individualized dose reduction techniques were utilized for this examination: 1. Automated exposure control 2. Adjustment of the mA and/or kV according to patient size 3. Use of iterative reconstruction technique CT ABDOMEN PELVIS WO CONTRAST Clinical Indication: Abdominal PAIN H/O HERNIA Comparison: CT abdomen and pelvis with contrast, December 31, 2014. Technique: Helical CT imaging of the abdomen and pelvis is performed without IV or oral contrast. Findings: Evaluation of solid organs and bowel is limited without oral and IV contrast, decreasing sensitivity for detection of pathology. Moderate right and small left pleural effusions. There is moderate pericardial effusion. Mitral annular calcification. Cardiac size upper limits of normal. There is interlobular septal thickening in the bilateral lung bases. Minimal compressive atelectasis adjacent to the effusions. Cholecystectomy. Liver, spleen, pancreas, and adrenal glands are normal. Atherosclerotic calcification with probable narrowing at the origin of the SMA. Abdominal aorta is normal caliber. There is bilateral perinephric stranding. No hydronephrosis. No gastric wall thickening. There is a supraumbilical fat-containing hernia, the stomach is seen at the neck of the hernia. Transverse colon and a colon diverticulum are also seen at the neck of the hernia, image 30. There is a moderate sized periumbilical hernia that contains dilated loops of small bowel. There are dilated mid small bowel loops. The hernia is the point of transition of obstruction. Small bowel entering at the upper neck is well seen on image 40. More inferiorly in the hernia, is likely the point of transition as there is a moderately dilated small bowel loop demonstrating small bowel feces sign entering the hernia. Decompressed distal small bowel loop is just inferior, sagittal image 39. As seen on sagittal images, it is possible that there are 2 separate periumbilical hernias, one on top of the other. There is distal colon anastomosis. The distal colon is not well distended, limiting evaluation. There are a few colon diverticula without inflammation. No colon wall thickening is seen. The appendix is normal. Urinary bladder is decompressed, limiting evaluation. Hysterectomy. No significant pelvic free fluid. Grade 1 anterolisthesis of L3 on L4 and L4-L5. Vacuum disc phenomenon L5/S1. IMPRESSION: 1. There is high-grade mid small bowel obstruction. Point of transition is a periumbilical hernia as described above. 2. Moderate right and small left pleural effusions. 3. Interlobular septal thickening suggests interstitial edema. 4. Moderate pericardial effusion. 5. Mild colon diverticulosis without diverticulitis. Electronically signed by: Daren De La Vega MD (06/13/2018 9:51 AM) [id number] DICTATED and SIGNED BY: DAREN DE LA VEGA MD DATE: 06/13/18 0951 Course & Med Decision Making Course & Med Decision Making Pertinent Labs and Imaging studies reviewed. (See chart for details) This is a 63-year-old female patient presenting today complaining of abdominal pain, nausea, symptoms began yesterday. Has history of abdominal hernias. CBC with normal WBC, hemoglobin 7.7 hematocrit 23.3, patient has history of chronic anemia. CMP with creatinine of 7.3, BUN is 65. K 5.4 no EKG changes. Consulted with Dr. Fitch who came to the ED to better to patient. NG tube was ordered. Consulted with Dr. Carlos who accepted patient for admission. Routine consult placed for nephrology Dragon Disclaimer Dragon Disclaimer This electronic medical record was generated, in whole or in part, using a voice recognition dictation system. Departure Departure Impression: Primary Impression: Small bowel obstruction Additional Impressions: ESRD (end stage renal disease) on dialysis Hyperkalemia Disposition: ADMITTED INPATIENT Condition: STABLE Referrals: NATE BARDALES MD (PCP) Problem Qualifiers AMARJIT CORONA APRN Jun 13, 2018 08:40
[2018-06-13] MEDS ORDERED: ONDANSETRON PF 4 MG/2 ML VIAL. IV ONE (09:00)
[2018-06-13 09:23] LABS: BASO # 0.1 x10^3/uL (0.0-0.2); BASO % 1 % (0-3); EOS # 0.2 x10^3/uL (0.0-0.7); EOS % 3 % (0-3); HEMATOCRIT 23.3 % (36.0-47.0); HEMOGLOBIN 7.7 g/dL (12.0-15.5); LYMPH # 0.5 x10^3/uL (1.0-4.8); LYMPH % 6 % (24-48); MEAN CORPUSCULAR HEMOGLOBIN 29 pg (25-35); MEAN CORPUSCULAR HGB CONC 33 g/dL (31-37); MEAN CORPUSCULAR VOLUME 89 fL (79-100); MONO # 0.5 x10^3/uL (0.0-1.1); MONO % 7 % (0-9); NEUT # 6.5 x10^3uL (1.8-7.7); NEUT % 84 % (31-73); PLATELET COUNT 246 x10^3/uL (140-400); RED BLOOD COUNT 2.63 x10^6/uL (3.50-5.40); RED CELL DISTRIBUTION WIDTH 17.3 % (11.5-14.5); WHITE BLOOD COUNT 7.7 x10^3/uL (4.0-11.0)
[2018-06-13 09:44] LABS: CALCIUM 8.6 mg/dL (8.5-10.1); CREATININE 7.3 mg/dL (0.6-1.0); GFR 5.6; POTASSIUM 5.4 mmol/L (3.5-5.1)
[2018-06-13 09:51] LABS: ALBUMIN 3.4 g/dL (3.4-5.0); ALBUMIN/GLOBULIN RATIO 0.9 (1.0-1.7); TOTAL BILIRUBIN 0.4 mg/dL (0.2-1.0); TOTAL PROTEIN 7.1 g/dL (6.4-8.2)
--- NOTE | 2018-06-13 09:54 | RAD ---
PQRS Compliance Statement: One or more of the following individualized dose reduction techniques were utilized for this examination: 1. Automated exposure control 2. Adjustment of the mA and/or kV according to patient size 3. Use of iterative reconstruction technique CT ABDOMEN PELVIS WO CONTRAST Clinical Indication: Abdominal PAIN H/O HERNIA Comparison: CT abdomen and pelvis with contrast, December 31, 2014. Technique: Helical CT imaging of the abdomen and pelvis is performed without IV or oral contrast. Findings: Evaluation of solid organs and bowel is limited without oral and IV contrast, decreasing sensitivity for detection of pathology. Moderate right and small left pleural effusions. There is moderate pericardial effusion. Mitral annular calcification. Cardiac size upper limits of normal. There is interlobular septal thickening in the bilateral lung bases. Minimal compressive atelectasis adjacent to the effusions. Cholecystectomy. Liver, spleen, pancreas, and adrenal glands are normal. Atherosclerotic calcification with probable narrowing at the origin of the SMA. Abdominal aorta is normal caliber. There is bilateral perinephric stranding. No hydronephrosis. No gastric wall thickening. There is a supraumbilical fat-containing hernia, the stomach is seen at the neck of the hernia. Transverse colon and a colon diverticulum are also seen at the neck of the hernia, image 30. There is a moderate sized periumbilical hernia that contains dilated loops of small bowel. There are dilated mid small bowel loops. The hernia is the point of transition of obstruction. Small bowel entering at the upper neck is well seen on image 40. More inferiorly in the hernia, is likely the point of transition as there is a moderately dilated small bowel loop demonstrating small bowel feces sign entering the hernia. Decompressed distal small bowel loop is just inferior, sagittal image 39. As seen on sagittal images, it is possible that there are 2 separate periumbilical hernias, one on top of the other. There is distal colon anastomosis. The distal colon is not well distended, limiting evaluation. There are a few colon diverticula without inflammation. No colon wall thickening is seen. The appendix is normal. Urinary bladder is decompressed, limiting evaluation. Hysterectomy. No significant pelvic free fluid. Grade 1 anterolisthesis of L3 on L4 and L4-L5. Vacuum disc phenomenon L5/S1. IMPRESSION: 1. There is high-grade mid small bowel obstruction. Point of transition is a periumbilical hernia as described above. 2. Moderate right and small left pleural effusions. 3. Interlobular septal thickening suggests interstitial edema. 4. Moderate pericardial effusion. 5. Mild colon diverticulosis without diverticulitis. Electronically signed by: Daren De La Vega MD (06/13/2018 9:51 AM) [id number]
--- NOTE | 2018-06-13 10:56 | EKG ---
[facility] [address] [place] [address] Test Date: 2018-06-13 Test Time: 08:48:07 Pat Name: NILESH SUAZO Department: Room: Gender: F Medical Transcription Supervisor: : [id number] Requested By: AMARJIT CORONA Order Number: [id number] Reading MD: Kevin Greenberg MD Measurements Intervals [place] Rate: 91 P: 31 NH: 122 QRS: 58 QRSD: 78 T: 85 QT: 360 QTc: 444 Interpretive Statements SINUS RHYTHM Electronically Signed On 06-16-2018 22:04:17 CDT by Kevin Greenberg MD
--- NOTE | 2018-06-13 11:26 | PDOC2 ---
CONSULT Date of Consult Date of Consult DATE: 06/13/18 TIME: 11:18 Reason for Consult Reason for Consult: SBO Referring Physician Referring Physician: Catia Identification/Chief Complaint Chief Complaint Nausea, abd pain Source Source: Caregiver, Chart review, Patient History of Present Illness Reason for Visit: 63 yo F presents with one day hx of nausea and abd pain. She had previous episode in 2014 requiring complicated hernia repair. She has lost a large amount of weight since then, going from BMI 42 to 30, consistent with malnutrition. She is seen in ER accompanied by supportive family. She does actually report feeling somewhat better. She denies significant emesis. Past Medical History Cardiovascular: CHF, HTN, Hyperlipidemia Pulmonary: Asthma GI: Constipation Heme/Onc: Anemia NOS Musculoskeletal: Osteoarthritis Infectious disease: Other Renal/: Chronic renal failure Endocrine: Diabetes, Hyperparathyroidism Past Surgical History Past Surgical History: Cholecystectomy, Cataract Removal, Hysterectomy Family History Family History: Diabetes, Hypertension Social History No ALCOHOL: none Drugs: None Lives: with Family Current Medications Current Medications Current Medications Morphine Sulfate (Morphine Sulfate) 5 mg 1X ONCE IV Last administered on at 09:36; Start 06/13/18 at 08:30; Stop 06/13/18 at 08:32; Status DC Ondansetron HCl (Zofran) 4 mg 1X ONCE IV Last administered on 06/13/18at 09:36 ; Start 06/13/18 at 09:00; Stop 06/13/18 at 09:01; Status DC Morphine Sulfate (Morphine Sulfate) 4 mg PRN Q2HR PRN IV PAIN; Start 06/13/18 at 11:00; Stop 06/14/18 at 10:59 Active Scripts Active Hydroxyzine Hcl 25 Mg Tablet 25 Mg PO BID 90 Days [Darbepoetin Uvaldo In Polysorbat] 60 MCG/0.3 ML Disp.syrin 60 Mcg SQ WEEKLYHS Duoneb 0.5-3(2.5) Mg/3 Ml (Albuterol/Ipratropium) 3 Ml Ampul.neb 3 Ml NEB Q6HRS 30 Days Nephro-Deborah Rx Tablet (Vit B Cmplx 3/Fa/Vit C/Biotin) 1 Each Tablet 1 Each PO DAILY 90 Days Metoprolol Tartrate 50 Mg Tablet 50 Mg PO BID 30 Days Reported Calcium Acetate 667 Mg Tablet 667 Mg PO TIDWMEALS Furosemide 40 Mg Tablet 40 Mg PO BID Lisinopril 20 Mg Tablet 20 Mg PO DAILY Fluconazole 100 Mg Tablet 150 Mg PO WEEKLY Sodium Bicarbonate 650 Mg Tablet 10 Mg PO TID Amlodipine Besylate 10 Mg Tablet 10 Mg PO DAILY Tums (Calcium Carbonate) 300 Mg Tab.chew 300 Mg PO BIDAC Novolog (Insulin Aspart) 100 Unit/1 Ml Cartridge 5 Unit SQ TIDBFRMEAL Lantus Solostar (Insulin Glargine,Hum.rec.anlog) 100 Unit/1 Ml Insuln.pen 10 Unit SQ BID Advair 250-50 Diskus (Fluticasone/Salmeterol) 1 Each Disk.w.dev 1 Inh IH BID Lipitor (Atorvastatin Calcium) 40 Mg Tablet 40 Mg PO HS Allergies Allergies: Coded Allergies: cefazolin (Verified Allergy, Intermediate, Rash, 03/06/18) TOLERATES CEFEPIME ROS Gastrointestinal: Yes Nausea, Yes Abdominal Pain Physical Exam General: Alert, Oriented X3, Cooperative, mild distress HEENT: Atraumatic Lungs: Normal air movement Abdomen: Soft, Other (multiple scars and difficult to identify hernia with palpation, secondary to body habitus, no peritoneal signs currently) Extremities: No clubbing, No cyanosis Skin: No rashes, No breakdown Neuro: Normal speech, Sensation intact Psych/Mental Status: Mental status NL, Mood NL Vitals VITALS Vital Signs Date Time Temp Pulse Resp B/P (MAP) Pulse Ox O2 Delivery O2 Flow Rate FiO2 06/13/18 09:57 90 15 174/74 (107) 97 Nasal Cannula 2.0 06/13/18 08:11 98.6 98.6 Labs Labs Laboratory Tests Test 06/13/18 08:54 White Blood Count 7.7 x10^3/uL (4.0-11.0) Red Blood Count 2.63 x10^6/uL (3.50-5.40) Hemoglobin 7.7 g/dL (12.0-15.5) Hematocrit 23.3 % (36.0-47.0) Mean Corpuscular Volume 89 fL (79-100) Mean Corpuscular Hemoglobin 29 pg (25-35) Mean Corpuscular Hemoglobin Concent 33 g/dL (31-37) Red Cell Distribution Width 17.3 % (11.5-14.5) Platelet Count 246 x10^3/uL (140-400) Neutrophils (%) (Auto) 84 % (31-73) Lymphocytes (%) (Auto) 6 % (24-48) Monocytes (%) (Auto) 7 % (0-9) Eosinophils (%) (Auto) 3 % (0-3) Basophils (%) (Auto) 1 % (0-3) Neutrophils # (Auto) 6.5 x10^3uL (1.8-7.7) Lymphocytes # (Auto) 0.5 x10^3/uL (1.0-4.8) Monocytes # (Auto) 0.5 x10^3/uL (0.0-1.1) Eosinophils # (Auto) 0.2 x10^3/uL (0.0-0.7) Basophils # (Auto) 0.1 x10^3/uL (0.0-0.2) Sodium Level 137 mmol/L (136-145) Potassium Level 5.4 mmol/L (3.5-5.1) Chloride Level 94 mmol/L (98-107) Carbon Dioxide Level 28 mmol/L (21-32) Anion Gap 15 (6-14) Blood Urea Nitrogen 65 mg/dL (7-20) Creatinine 7.3 mg/dL (0.6-1.0) Estimated GFR (Cockcroft-Gault) 5.6 BUN/Creatinine Ratio 9 (6-20) Glucose Level 132 mg/dL (70-99) Calcium Level 8.6 mg/dL (8.5-10.1) Total Bilirubin 0.4 mg/dL (0.2-1.0) Aspartate Amino Transf (AST/SGOT) 19 U/L (15-37) Alanine Aminotransferase (ALT/SGPT) 20 U/L (14-59) Alkaline Phosphatase 79 U/L (46-116) Troponin I Quantitative < 0.017 ng/mL (0.000-0.055) Total Protein 7.1 g/dL (6.4-8.2) Albumin 3.4 g/dL (3.4-5.0) Albumin/Globulin Ratio 0.9 (1.0-1.7) Lipase 135 U/L (73-393) Laboratory Tests Test 06/13/18 08:54 White Blood Count 7.7 x10^3/uL (4.0-11.0) Red Blood Count 2.63 x10^6/uL (3.50-5.40) Hemoglobin 7.7 g/dL (12.0-15.5) Hematocrit 23.3 % (36.0-47.0) Mean Corpuscular Volume 89 fL (79-100) Mean Corpuscular Hemoglobin 29 pg (25-35) Mean Corpuscular Hemoglobin Concent 33 g/dL (31-37) Red Cell Distribution Width 17.3 % (11.5-14.5) Platelet Count 246 x10^3/uL (140-400) Neutrophils (%) (Auto) 84 % (31-73) Lymphocytes (%) (Auto) 6 % (24-48) Monocytes (%) (Auto) 7 % (0-9) Eosinophils (%) (Auto) 3 % (0-3) Basophils (%) (Auto) 1 % (0-3) Neutrophils # (Auto) 6.5 x10^3uL (1.8-7.7) Lymphocytes # (Auto) 0.5 x10^3/uL (1.0-4.8) Monocytes # (Auto) 0.5 x10^3/uL (0.0-1.1) Eosinophils # (Auto) 0.2 x10^3/uL (0.0-0.7) Basophils # (Auto) 0.1 x10^3/uL (0.0-0.2) Sodium Level 137 mmol/L (136-145) Potassium Level 5.4 mmol/L (3.5-5.1) Chloride Level 94 mmol/L (98-107) Carbon Dioxide Level 28 mmol/L (21-32) Anion Gap 15 (6-14) Blood Urea Nitrogen 65 mg/dL (7-20) Creatinine 7.3 mg/dL (0.6-1.0) Estimated GFR (Cockcroft-Gault) 5.6 BUN/Creatinine Ratio 9 (6-20) Glucose Level 132 mg/dL (70-99) Calcium Level 8.6 mg/dL (8.5-10.1) Total Bilirubin 0.4 mg/dL (0.2-1.0) Aspartate Amino Transf (AST/SGOT) 19 U/L (15-37) Alanine Aminotransferase (ALT/SGPT) 20 U/L (14-59) Alkaline Phosphatase 79 U/L (46-116) Troponin I Quantitative < 0.017 ng/mL (0.000-0.055) Total Protein 7.1 g/dL (6.4-8.2) Albumin 3.4 g/dL (3.4-5.0) Albumin/Globulin Ratio 0.9 (1.0-1.7) Lipase 135 U/L (73-393) Images Images CT with small bowel obstruction secondary to recurrent incisional hernia Assessment/Plan Assessment/Plan SBO secondary to recurrent incisional hernia. Agree with admission and IVF pt currently appears to mildly clinically improved and stable given pt's comorbidities of renal failure and CHF, and suspect hostile abd, would favor attempt at conservative measure and medically maximizing, prior to consideration of surgical repair. This was discussed with patient and family, whom agree. Thanks for consult! KARAN VO MD Jun 13, 2018 11:25
--- NOTE | 2018-06-13 11:56 | RAD ---
EXAM: Abdomen, single view. HISTORY: Nasogastric tube placement. COMPARISON: CT obtained on the same date. FINDINGS: There is a nasogastric tube within the proximal stomach with the side-port likely in the distal esophagus or at the gastroesophageal junction. There are nonspecific air-filled loops of bowel within the abdomen. There are small to moderate right and small left pleural effusions with diffuse increased interstitial opacity within the visualized lungs. There is cardiomegaly. There are surgical clips within the right upper quadrant. IMPRESSION: 1. Nasogastric tube within the proximal stomach with the side port in the distal esophagus or at the gastroesophageal junction. 2. Nonspecific air-filled loops of bowel within the abdomen. Please refer to the separate report for the CT obtained earlier on the same date for findings regarding bowel obstruction. 3. Bilateral pleural effusions and diffuse increased pulmonary interstitial opacity. Electronically signed by: Krystle Casillas MD (06/13/2018 11:53 AM) [id number]
--- NOTE | 2018-06-13 12:07 | PDOC2 ---
CONSULT Date of Consult Date of Consult DATE: 06/13/18 TIME: 12:03 Reason for Consult Reason for Consult: HIGH K AND ESRD Referring Physician Referring Physician: Identification/Chief Complaint Chief Complaint ABD PAIN Source Source: Chart review, Patient History of Present Illness Reason for Visit: THIS IS A 63 YR OLD ESRD PT WITH OP HD ON . LAST HD ON SUNDAY. ADMITTED WITH ABD PAIN AND NOTED TO HAVE A SBO. LABS ARE C/W HER ESRD STATUS. ESRD IS DUE TO DM II AND HTN Past Medical History Cardiovascular: CHF, HTN, Hyperlipidemia Pulmonary: Asthma GI: Constipation Heme/Onc: Anemia NOS Musculoskeletal: Osteoarthritis Infectious disease: Other Renal/: Chronic renal failure Endocrine: Diabetes, Hyperparathyroidism Past Surgical History Past Surgical History: Cholecystectomy, Cataract Removal, Hysterectomy Family History Family History: Diabetes, Hypertension Social History No ALCOHOL: none Drugs: None Lives: with Family Current Problem List Problem List Problems Medical Problems: (1) Hyperkalemia Status: Acute (2) Small bowel obstruction Status: Acute Current Medications Current Medications Current Medications Morphine Sulfate (Morphine Sulfate) 5 mg 1X ONCE IV Last administered on at 09:36; Start 06/13/18 at 08:30; Stop 06/13/18 at 08:32; Status DC Ondansetron HCl (Zofran) 4 mg 1X ONCE IV Last administered on 06/13/18at 09:36 ; Start 06/13/18 at 09:00; Stop 06/13/18 at 09:01; Status DC Morphine Sulfate (Morphine Sulfate) 4 mg PRN Q2HR PRN IV PAIN; Start 06/13/18 at 11:00; Stop 06/14/18 at 10:59 Active Scripts Active Hydroxyzine Hcl 25 Mg Tablet 25 Mg PO BID 90 Days [Darbepoetin Uvaldo In Polysorbat] 60 MCG/0.3 ML Disp.syrin 60 Mcg SQ WEEKLYHS Duoneb 0.5-3(2.5) Mg/3 Ml (Albuterol/Ipratropium) 3 Ml Ampul.neb 3 Ml NEB Q6HRS 30 Days Nephro-Deborah Rx Tablet (Vit B Cmplx 3/Fa/Vit C/Biotin) 1 Each Tablet 1 Each PO DAILY 90 Days Metoprolol Tartrate 50 Mg Tablet 50 Mg PO BID 30 Days Reported Calcium Acetate 667 Mg Tablet 667 Mg PO TIDWMEALS Furosemide 40 Mg Tablet 40 Mg PO BID Lisinopril 20 Mg Tablet 20 Mg PO DAILY Fluconazole 100 Mg Tablet 150 Mg PO WEEKLY Sodium Bicarbonate 650 Mg Tablet 10 Mg PO TID Amlodipine Besylate 10 Mg Tablet 10 Mg PO DAILY Tums (Calcium Carbonate) 300 Mg Tab.chew 300 Mg PO BIDAC Novolog (Insulin Aspart) 100 Unit/1 Ml Cartridge 5 Unit SQ TIDBFRMEAL Lantus Solostar (Insulin Glargine,Hum.rec.anlog) 100 Unit/1 Ml Insuln.pen 10 Unit SQ BID Advair 250-50 Diskus (Fluticasone/Salmeterol) 1 Each Disk.w.dev 1 Inh IH BID Lipitor (Atorvastatin Calcium) 40 Mg Tablet 40 Mg PO HS Allergies Allergies: Coded Allergies: cefazolin (Verified Allergy, Intermediate, Rash, 03/06/18) TOLERATES CEFEPIME ROS General: YES: Fatigue, Malaise PSYCHOLOGICAL ROS: YES: Anxiety Eyes: Yes Decreased vision HEENT: YES: Heacaches Gastrointestinal: Yes Nausea, Yes Abdominal Pain Genitourinary: YES Other (ANURIA) Musculoskeletal: Yes Muscular Weakness Neurological: Yes Weakness Skin: Yes Dry Skin Physical Exam General: Alert, Oriented X3, Cooperative, No acute distress HEENT: Atraumatic, EOMI Lungs: Clear to auscultation Heart: Regular rate Abdomen: Normal bowel sounds, Soft Extremities: No clubbing Neuro: Normal speech, Normal tone Psych/Mental Status: Mental status NL MUSCULOSKELETAL: No joint tenderness, No deformity Vitals VITALS Vital Signs Date Time Temp Pulse Resp B/P (MAP) Pulse Ox O2 Delivery O2 Flow Rate FiO2 06/13/18 09:57 90 15 174/74 (107) 97 Nasal Cannula 2.0 06/13/18 08:11 98.6 98.6 Labs Labs Laboratory Tests Test 06/13/18 08:54 White Blood Count 7.7 x10^3/uL (4.0-11.0) Red Blood Count 2.63 x10^6/uL (3.50-5.40) Hemoglobin 7.7 g/dL (12.0-15.5) Hematocrit 23.3 % (36.0-47.0) Mean Corpuscular Volume 89 fL (79-100) Mean Corpuscular Hemoglobin 29 pg (25-35) Mean Corpuscular Hemoglobin Concent 33 g/dL (31-37) Red Cell Distribution Width 17.3 % (11.5-14.5) Platelet Count 246 x10^3/uL (140-400) Neutrophils (%) (Auto) 84 % (31-73) Lymphocytes (%) (Auto) 6 % (24-48) Monocytes (%) (Auto) 7 % (0-9) Eosinophils (%) (Auto) 3 % (0-3) Basophils (%) (Auto) 1 % (0-3) Neutrophils # (Auto) 6.5 x10^3uL (1.8-7.7) Lymphocytes # (Auto) 0.5 x10^3/uL (1.0-4.8) Monocytes # (Auto) 0.5 x10^3/uL (0.0-1.1) Eosinophils # (Auto) 0.2 x10^3/uL (0.0-0.7) Basophils # (Auto) 0.1 x10^3/uL (0.0-0.2) Sodium Level 137 mmol/L (136-145) Potassium Level 5.4 mmol/L (3.5-5.1) Chloride Level 94 mmol/L (98-107) Carbon Dioxide Level 28 mmol/L (21-32) Anion Gap 15 (6-14) Blood Urea Nitrogen 65 mg/dL (7-20) Creatinine 7.3 mg/dL (0.6-1.0) Estimated GFR (Cockcroft-Gault) 5.6 BUN/Creatinine Ratio 9 (6-20) Glucose Level 132 mg/dL (70-99) Calcium Level 8.6 mg/dL (8.5-10.1) Total Bilirubin 0.4 mg/dL (0.2-1.0) Aspartate Amino Transf (AST/SGOT) 19 U/L (15-37) Alanine Aminotransferase (ALT/SGPT) 20 U/L (14-59) Alkaline Phosphatase 79 U/L (46-116) Troponin I Quantitative < 0.017 ng/mL (0.000-0.055) Total Protein 7.1 g/dL (6.4-8.2) Albumin 3.4 g/dL (3.4-5.0) Albumin/Globulin Ratio 0.9 (1.0-1.7) Lipase 135 U/L (73-393) Laboratory Tests Test 06/13/18 08:54 White Blood Count 7.7 x10^3/uL (4.0-11.0) Red Blood Count 2.63 x10^6/uL (3.50-5.40) Hemoglobin 7.7 g/dL (12.0-15.5) Hematocrit 23.3 % (36.0-47.0) Mean Corpuscular Volume 89 fL (79-100) Mean Corpuscular Hemoglobin 29 pg (25-35) Mean Corpuscular Hemoglobin Concent 33 g/dL (31-37) Red Cell Distribution Width 17.3 % (11.5-14.5) Platelet Count 246 x10^3/uL (140-400) Neutrophils (%) (Auto) 84 % (31-73) Lymphocytes (%) (Auto) 6 % (24-48) Monocytes (%) (Auto) 7 % (0-9) Eosinophils (%) (Auto) 3 % (0-3) Basophils (%) (Auto) 1 % (0-3) Neutrophils # (Auto) 6.5 x10^3uL (1.8-7.7) Lymphocytes # (Auto) 0.5 x10^3/uL (1.0-4.8) Monocytes # (Auto) 0.5 x10^3/uL (0.0-1.1) Eosinophils # (Auto) 0.2 x10^3/uL (0.0-0.7) Basophils # (Auto) 0.1 x10^3/uL (0.0-0.2) Sodium Level 137 mmol/L (136-145) Potassium Level 5.4 mmol/L (3.5-5.1) Chloride Level 94 mmol/L (98-107) Carbon Dioxide Level 28 mmol/L (21-32) Anion Gap 15 (6-14) Blood Urea Nitrogen 65 mg/dL (7-20) Creatinine 7.3 mg/dL (0.6-1.0) Estimated GFR (Cockcroft-Gault) 5.6 BUN/Creatinine Ratio 9 (6-20) Glucose Level 132 mg/dL (70-99) Calcium Level 8.6 mg/dL (8.5-10.1) Total Bilirubin 0.4 mg/dL (0.2-1.0) Aspartate Amino Transf (AST/SGOT) 19 U/L (15-37) Alanine Aminotransferase (ALT/SGPT) 20 U/L (14-59) Alkaline Phosphatase 79 U/L (46-116) Troponin I Quantitative < 0.017 ng/mL (0.000-0.055) Total Protein 7.1 g/dL (6.4-8.2) Albumin 3.4 g/dL (3.4-5.0) Albumin/Globulin Ratio 0.9 (1.0-1.7) Lipase 135 U/L (73-393) Assessment/Plan Assessment/Plan IMP HYPERKALEMIA ANEMIA ESRD DM II HTN SBO PLAN SURGICAL EVAL AND TX HD TODAY UF TO [facility] PPN FOR NOW CYNDEE CORREA MD Jun 13, 2018 12:07
[2018-06-13 14:00] VITALS: BP 152/56
[2018-06-13] MEDS: MORPHINE SULFATE 4 MG/ML VIAL. IV PRN ×3 (14:41→22:31)
--- NOTE | 2018-06-13 15:13 | RAD ---
MAURISIO, 06/13/2018, 2:37 PM: HISTORY: Check NG tube placement Comparison is made to the study of earlier the same day. The tube has been advanced with its distal end now coiled in the body of the stomach. The abdominal gas pattern is unremarkable. Left basilar atelectasis/infiltrate has developed. IMPRESSION: 1. The NG tube is in satisfactory position extending into the body of the stomach. 2. Left basilar atelectasis/infiltrate has developed. Electronically signed by: Jaek Zavala MD (06/13/2018 3:10 PM) [facility]
[2018-06-13] MEDS ORDERED: IV NORMAL SALINE 1000ML BAG 1,000 ML IV PRN ×2 (16:21)
[2018-06-13] MEDS ORDERED: DIALYSIS PATIENT. MC PRN (16:30)
[2018-06-13] MEDS: INSULIN LISPRO 300 UNITS/3 ML INSULN.PEN. SQ SCH ×2 (16:30→21:00)
[2018-06-13] MEDS: IPRATRPIUM/ALBUTEROL 0.5/2.5MG 3 ML NEBU. NEB SCH ×2 (17:18→20:59)
--- NOTE | 2018-06-13 17:39 | NUR ---
Pt was admitted from ER, accompanied by son, Zev. Pt was oriented to room, fall policy, and care plan. Pt was complain of painful IV access on R hand when accessed to give medication. New IV 22G placed right antecubital . Pt went to dialysis shortly after admission. Will continue to monitor when pt comes back.
[2018-06-13] MEDS: METOPROLOL TARTRATE 5 MG/5 ML VIAL. IVP SCH (18:00)
[2018-06-13 19:00] VITALS: BP 153/54
[2018-06-13] MEDS: BUDESONIDE 0.5 MG/2 ML NEBU. NEB SCH (20:59)
[2018-06-13] MEDS ORDERED: DARBEPOETIN ALFA 60 MCG/0.3 ML DISP.SYRIN. SQ SCH ×2 (21:00)
--- NOTE | 2018-06-13 22:17 | HP ---
ADMIT DATE: 06/13/2018 CHIEF COMPLAINT: Abdominal pain. HISTORY OF PRESENT ILLNESS AND HOSPITAL COURSE: This patient is a 63-year-old female who is on dialysis due to chronic renal failure, began having increasing abdominal pain and was brought to the Emergency Room. Initial x-rays showed evidence of small-bowel obstruction. Surgery was consulted and the patient was admitted to the hospital for further evaluation. PAST MEDICAL HISTORY: Significant for: 1. Type 2 diabetes. 2. Hypertension. 3. End-stage renal disease. 4. Hyperlipidemia. 5. Previous enterocutaneous fistula and multiple abdominal hernia surgeries. 6. COPD. PAST SURGICAL HISTORY: Significant for: 1. Multiple hernia surgeries. 2. EC fistula, now closed. 3. Total abdominal hysterectomy. 4. Open cholecystectomy. 5. Ovarian cyst removal with bowel perforation. 6. Open laparotomy for removal of mesh from ventral incisional hernia repair. 7. AV fistula for dialysis. FAMILY HISTORY: Noncontributory. SOCIAL HISTORY: The patient has never smoked. She does not use alcohol. She lives with her . She is on disability due to end-stage renal disease. ALLERGIES: The patient is allergic to ANCEF. REVIEW OF SYSTEMS: The patient was in usual state of health until acute abdominal pain within the last 24 hours and abdominal firmness noted. The patient did have one episode of vomiting at admission to the hospital. Had no diarrhea. Has no fever. ASSESSMENT: 1. Small-bowel obstruction. 2. End-stage renal disease, on dialysis. 3. Chronic anemia with admitting hemoglobin of 7.7. 4. Type 2 diabetes. 5. Hyperkalemia. PLAN: To proceed with routine dialysis. Consult Surgery for evaluation. Place NG tube for decompression. Monitor and treat chronic medical illnesses. NATE DE MD DR: LITTLE/nataliya JOB#: [id number] / [id number]
[2018-06-13 23:00] VITALS: BP 140/64
[2018-06-14] VITALS (7 sets, daily range): BP systolic 128–209; BP diastolic 57–69
[2018-06-14] MEDS: METOPROLOL TARTRATE 5 MG/5 ML VIAL. IVP SCH ×5 (05:27→23:14)
[2018-06-14] MEDS: IPRATRPIUM/ALBUTEROL 0.5/2.5MG 3 ML NEBU. NEB SCH ×4 (07:18→20:03)
[2018-06-14] MEDS: BUDESONIDE 0.5 MG/2 ML NEBU. NEB SCH ×2 (07:18→20:03)
[2018-06-14 07:22] LABS: BASO # 0.1 x10^3/uL (0.0-0.2); BASO % 1 % (0-3); EOS # 0.3 x10^3/uL (0.0-0.7); EOS % 4 % (0-3); HEMATOCRIT 23.3 % (36.0-47.0); HEMOGLOBIN 7.3 g/dL (12.0-15.5); LYMPH # 0.5 x10^3/uL (1.0-4.8); LYMPH % 9 % (24-48); MEAN CORPUSCULAR HEMOGLOBIN 28 pg (25-35); MEAN CORPUSCULAR HGB CONC 32 g/dL (31-37); MEAN CORPUSCULAR VOLUME 90 fL (79-100); MONO # 0.5 x10^3/uL (0.0-1.1); MONO % 7 % (0-9); NEUT % 79 % (31-73); PLATELET COUNT 225 x10^3/uL (140-400); RED CELL DISTRIBUTION WIDTH 17.3 % (11.5-14.5); WHITE BLOOD COUNT 6.3 x10^3/uL (4.0-11.0)
[2018-06-14] MEDS: INSULIN LISPRO 300 UNITS/3 ML INSULN.PEN. SQ SCH ×4 (07:30→21:00)
[2018-06-14 07:38] LABS: ALBUMIN/GLOBULIN RATIO 0.8 (1.0-1.7); CALCIUM 8.7 mg/dL (8.5-10.1); CREATININE 4.9 mg/dL (0.6-1.0); GFR 8.9; POTASSIUM 5.1 mmol/L (3.5-5.1); TOTAL BILIRUBIN 0.8 mg/dL (0.2-1.0)
[2018-06-14] MEDS ORDERED: DEXTROSE 50% 25 GM / 50ML DISP.SYRIN. IV PRN (07:45)
--- NOTE | 2018-06-14 09:35 | NUR ---
SW following for discharge planning. Discussed with RN, pt from home with family. RN advised no SW needs at this time. SW will continue to follow.
--- NOTE | 2018-06-14 09:52 | PDOC ---
MARSHALL QUIROS [employer] MACHINE 06/14/18 0952: SURGICAL PROGRESS NOTE Subjective no flatus feels about the same some pain today Vital Signs Vital Signs Date Time Temp Pulse Resp B/P (MAP) Pulse Ox O2 Delivery O2 Flow Rate FiO2 06/14/18 07:18 95 Nasal Cannula 2.0 06/14/18 07:00 98.0 70 18 153/61 (91) 98.0 I&O Intake and Output 06/14/18 07:00 Intake Total 0 ml Output Total 0 ml Balance 0 ml Intake Oral 0 ml Output Urine Total 0 ml General: Alert, Cooperative HEENT: Other (NG in place) Abdomen: Soft, Other (ND) Labs Laboratory Tests Test 06/13/18 08:54 06/13/18 12:19 06/13/18 21:11 06/14/18 07:03 White Blood Count 7.7 x10^3/uL (4.0-11.0) 6.3 x10^3/uL (4.0-11.0) Red Blood Count 2.63 x10^6/uL (3.50-5.40) 2.60 x10^6/uL (3.50-5.40) Hemoglobin 7.7 g/dL (12.0-15.5) 7.3 g/dL (12.0-15.5) Hematocrit 23.3 % (36.0-47.0) 23.3 % (36.0-47.0) Mean Corpuscular Volume 89 fL (79-100) 90 fL (79-100) Mean Corpuscular Hemoglobin 29 pg (25-35) 28 pg (25-35) Mean Corpuscular Hemoglobin Concent 33 g/dL (31-37) 32 g/dL (31-37) Red Cell Distribution Width 17.3 % (11.5-14.5) 17.3 % (11.5-14.5) Platelet Count 246 x10^3/uL (140-400) 225 x10^3/uL (140-400) Neutrophils (%) (Auto) 84 % (31-73) 79 % (31-73) Lymphocytes (%) (Auto) 6 % (24-48) 9 % (24-48) Monocytes (%) (Auto) 7 % (0-9) 7 % (0-9) Eosinophils (%) (Auto) 3 % (0-3) 4 % (0-3) Basophils (%) (Auto) 1 % (0-3) 1 % (0-3) Neutrophils # (Auto) 6.5 x10^3uL (1.8-7.7) 5.0 x10^3uL (1.8-7.7) Lymphocytes # (Auto) 0.5 x10^3/uL (1.0-4.8) 0.5 x10^3/uL (1.0-4.8) Monocytes # (Auto) 0.5 x10^3/uL (0.0-1.1) 0.5 x10^3/uL (0.0-1.1) Eosinophils # (Auto) 0.2 x10^3/uL (0.0-0.7) 0.3 x10^3/uL (0.0-0.7) Basophils # (Auto) 0.1 x10^3/uL (0.0-0.2) 0.1 x10^3/uL (0.0-0.2) Sodium Level 137 mmol/L (136-145) 138 mmol/L (136-145) Potassium Level 5.4 mmol/L (3.5-5.1) 5.1 mmol/L (3.5-5.1) Chloride Level 94 mmol/L (98-107) 98 mmol/L (98-107) Carbon Dioxide Level 28 mmol/L (21-32) 34 mmol/L (21-32) Anion Gap 15 (6-14) 6 (6-14) Blood Urea Nitrogen 65 mg/dL (7-20) 33 mg/dL (7-20) Creatinine 7.3 mg/dL (0.6-1.0) 4.9 mg/dL (0.6-1.0) Estimated GFR (Cockcroft-Gault) 5.6 8.9 BUN/Creatinine Ratio 9 (6-20) 7 (6-20) Glucose Level 132 mg/dL (70-99) 75 mg/dL (70-99) Calcium Level 8.6 mg/dL (8.5-10.1) 8.7 mg/dL (8.5-10.1) Total Bilirubin 0.4 mg/dL (0.2-1.0) 0.8 mg/dL (0.2-1.0) Aspartate Amino Transf (AST/SGOT) 19 U/L (15-37) 370 U/L (15-37) Alanine Aminotransferase (ALT/SGPT) 20 U/L (14-59) 312 U/L (14-59) Alkaline Phosphatase 79 U/L (46-116) 190 U/L (46-116) Troponin I Quantitative < 0.017 ng/mL (0.000-0.055) Total Protein 7.1 g/dL (6.4-8.2) 7.0 g/dL (6.4-8.2) Albumin 3.4 g/dL (3.4-5.0) 3.0 g/dL (3.4-5.0) Albumin/Globulin Ratio 0.9 (1.0-1.7) 0.8 (1.0-1.7) Lipase 135 U/L (73-393) Glucose (Fingerstick) 116 mg/dL (70-99) 93 mg/dL (70-99) Test 06/14/18 07:26 06/14/18 09:06 Glucose (Fingerstick) 70 mg/dL (70-99) 77 mg/dL (70-99) Laboratory Tests Test 06/13/18 12:19 06/13/18 21:11 06/14/18 07:03 06/14/18 07:26 Glucose (Fingerstick) 116 mg/dL (70-99) 93 mg/dL (70-99) 70 mg/dL (70-99) White Blood Count 6.3 x10^3/uL (4.0-11.0) Red Blood Count 2.60 x10^6/uL (3.50-5.40) Hemoglobin 7.3 g/dL (12.0-15.5) Hematocrit 23.3 % (36.0-47.0) Mean Corpuscular Volume 90 fL (79-100) Mean Corpuscular Hemoglobin 28 pg (25-35) Mean Corpuscular Hemoglobin Concent 32 g/dL (31-37) Red Cell Distribution Width 17.3 % (11.5-14.5) Platelet Count 225 x10^3/uL (140-400) Neutrophils (%) (Auto) 79 % (31-73) Lymphocytes (%) (Auto) 9 % (24-48) Monocytes (%) (Auto) 7 % (0-9) Eosinophils (%) (Auto) 4 % (0-3) Basophils (%) (Auto) 1 % (0-3) Neutrophils # (Auto) 5.0 x10^3uL (1.8-7.7) Lymphocytes # (Auto) 0.5 x10^3/uL (1.0-4.8) Monocytes # (Auto) 0.5 x10^3/uL (0.0-1.1) Eosinophils # (Auto) 0.3 x10^3/uL (0.0-0.7) Basophils # (Auto) 0.1 x10^3/uL (0.0-0.2) Sodium Level 138 mmol/L (136-145) Potassium Level 5.1 mmol/L (3.5-5.1) Chloride Level 98 mmol/L (98-107) Carbon Dioxide Level 34 mmol/L (21-32) Anion Gap 6 (6-14) Blood Urea Nitrogen 33 mg/dL (7-20) Creatinine 4.9 mg/dL (0.6-1.0) Estimated GFR (Cockcroft-Gault) 8.9 BUN/Creatinine Ratio 7 (6-20) Glucose Level 75 mg/dL (70-99) Calcium Level 8.7 mg/dL (8.5-10.1) Total Bilirubin 0.8 mg/dL (0.2-1.0) Aspartate Amino Transf (AST/SGOT) 370 U/L (15-37) Alanine Aminotransferase (ALT/SGPT) 312 U/L (14-59) Alkaline Phosphatase 190 U/L (46-116) Total Protein 7.0 g/dL (6.4-8.2) Albumin 3.0 g/dL (3.4-5.0) Albumin/Globulin Ratio 0.8 (1.0-1.7) Test 06/14/18 09:06 Glucose (Fingerstick) 77 mg/dL (70-99) Problem List Problems Medical Problems: (1) Hyperkalemia Status: Acute (2) Small bowel obstruction Status: Acute Assessment/Plan supportive measures continue NG, bowel rest elevated LFTS, GI consult KARAN VO MD 06/14/18 1230: SURGICAL PROGRESS NOTE Assessment/Plan Pt seen and examined. Agree with MsCheco Quiros's note Pt reports feeling somewhat better abd soft, NTTP undergoing US to evaluate LFTs d/w renal, pt is poor surgical candidate and will attempt conservative measures. If not improved, will need to consider operative intervention. MARSHALL QUIROS APRN Jun 14, 2018 09:52 KARAN VO MD Jun 14, 2018 12:30
--- NOTE | 2018-06-14 11:01 | PDOC2 ---
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 Ill since Sunday w/ "hernia pain" and constipation. Imaging demonstrated SBO related to recurrent incisional hernia. LFTs normal on admission, now AST 370, ALT 312 , AP 190 - only mild elevation of AST and AP intermittently the past. Denies heartburn/reflux, dysphagia, n/v, diarrhea, hematochezia, melena. Ongoing weight loss since 2014. Chronic constipation, untreated. No previous EGD or colonoscopy. S/p cholecystectomy long ago. No liver, pancreas, or PUD history. No NSAIDs. Hepatitis A, B, and C negative in 2018. Normal liver, diverticulosis, distal colon anastomosis, and atherosclerotic calcification w/ probable narrowing at SMA origin noted on CT. PMH: PMH: per and chart: HTN, HLD, CHF, COPD, ESRD on HD, DM, depression, anxiety, glaucoma, diverticulosis, ACD, enterocutaneous fistula cholecystectomy, hernia repairs w/ mesh, cataract removal, hysterectomy, dialysis fistula, ovarian cystectomy w/ bowel perforation FH: Family History: No pertinent hx (no GI cancers or liver disease), DM, Other ( renal disease) Social History: Smoke: No ALCOHOL: none Drugs: None ROS: GEN: Denies fevers, chills, sweats HEENT: Denies blurred vision, sore throat CV: Denies chest pain RESP: Denies shortness of air, cough GI: Per HPI : Denies hematuria, dysuria ENDO: +weight loss NEURO: Denies confusion, dizziness MSK: Denies weakness, joint pain/swelling SKIN: Denies jaundice, pruritus Vitals: Vitals: Vital Signs Date Time Temp Pulse Resp B/P (MAP) Pulse Ox O2 Delivery O2 Flow Rate FiO2 06/14/18 10:54 92 Nasal Cannula 2.0 06/14/18 07:00 98.0 70 18 153/61 (91) 98.0 Labs: Labs: Laboratory Tests Test 06/13/18 12:19 06/13/18 21:11 06/14/18 07:03 06/14/18 07:26 Glucose (Fingerstick) 116 mg/dL (70-99) 93 mg/dL (70-99) 70 mg/dL (70-99) White Blood Count 6.3 x10^3/uL (4.0-11.0) Red Blood Count 2.60 x10^6/uL (3.50-5.40) Hemoglobin 7.3 g/dL (12.0-15.5) Hematocrit 23.3 % (36.0-47.0) Mean Corpuscular Volume 90 fL (79-100) Mean Corpuscular Hemoglobin 28 pg (25-35) Mean Corpuscular Hemoglobin Concent 32 g/dL (31-37) Red Cell Distribution Width 17.3 % (11.5-14.5) Platelet Count 225 x10^3/uL (140-400) Neutrophils (%) (Auto) 79 % (31-73) Lymphocytes (%) (Auto) 9 % (24-48) Monocytes (%) (Auto) 7 % (0-9) Eosinophils (%) (Auto) 4 % (0-3) Basophils (%) (Auto) 1 % (0-3) Neutrophils # (Auto) 5.0 x10^3uL (1.8-7.7) Lymphocytes # (Auto) 0.5 x10^3/uL (1.0-4.8) Monocytes # (Auto) 0.5 x10^3/uL (0.0-1.1) Eosinophils # (Auto) 0.3 x10^3/uL (0.0-0.7) Basophils # (Auto) 0.1 x10^3/uL (0.0-0.2) Sodium Level 138 mmol/L (136-145) Potassium Level 5.1 mmol/L (3.5-5.1) Chloride Level 98 mmol/L (98-107) Carbon Dioxide Level 34 mmol/L (21-32) Anion Gap 6 (6-14) Blood Urea Nitrogen 33 mg/dL (7-20) Creatinine 4.9 mg/dL (0.6-1.0) Estimated GFR (Cockcroft-Gault) 8.9 BUN/Creatinine Ratio 7 (6-20) Glucose Level 75 mg/dL (70-99) Calcium Level 8.7 mg/dL (8.5-10.1) Total Bilirubin 0.8 mg/dL (0.2-1.0) Aspartate Amino Transf (AST/SGOT) 370 U/L (15-37) Alanine Aminotransferase (ALT/SGPT) 312 U/L (14-59) Alkaline Phosphatase 190 U/L (46-116) Total Protein 7.0 g/dL (6.4-8.2) Albumin 3.0 g/dL (3.4-5.0) Albumin/Globulin Ratio 0.8 (1.0-1.7) Test 06/14/18 09:06 Glucose (Fingerstick) 77 mg/dL (70-99) Allergies: Coded Allergies: cefazolin (Verified Allergy, Intermediate, Rash, 03/06/18) TOLERATES CEFEPIME Medications: Current Medications Medications (Trade) Dose Ordered Sig/Daniella Route PRN Reason Start Time Stop Time Status Last Admin Dose Admin Albuterol/ Ipratropium (Duoneb) 3 ml RTQID NEB 06/13/18 16:00 06/14/18 10:54 Darbepoetin Uvaldo (Aranesp) 60 mcg WEEKLYHS SQ 06/13/18 21:00 06/13/18 22:29 Budesonide (Pulmicort) 0.5 mg RTBID NEB 06/13/18 20:00 06/14/18 07:18 Metoprolol Tartrate (Lopressor Vial) 5 mg Q6HRS IVP 06/13/18 18:00 06/14/18 05:27 Dextrose (Dextrose 50%-Water Syringe) 12.5 gm PRN Q15MIN PRN IV SEE COMMENTS 06/14/18 07:45 06/14/18 07:53 Imaging: Imaging: CT A/P 06/13 Moderate right and small left pleural effusions. There is moderate pericardial effusion. Mitral annular calcification. Cardiac size upper limits of normal. There is interlobular septal thickening in the bilateral lung bases. Minimal compressive atelectasis adjacent to the effusions. Cholecystectomy. Liver, spleen, pancreas, and adrenal glands are normal. Atherosclerotic calcification with probable narrowing at the origin of the SMA. Abdominal aorta is normal caliber. There is bilateral perinephric stranding. No hydronephrosis. No gastric wall thickening. There is a supraumbilical fat-containing hernia, the stomach is seen at the neck of the hernia. Transverse colon and a colon diverticulum are also seen at the neck of the hernia, image 30. There is a moderate sized periumbilical hernia that contains dilated loops of small bowel. There are dilated mid small bowel loops. The hernia is the point of transition of obstruction. Small bowel entering at the upper neck is well seen on image 40. More inferiorly in the hernia, is likely the point of transition as there is a moderately dilated small bowel loop demonstrating small bowel feces sign entering the hernia. Decompressed distal small bowel loop is just inferior, sagittal image 39. As seen on sagittal images , it is possible that there are 2 separate periumbilical hernias, one on top of the other. There is distal colon anastomosis. The distal colon is not well distended, limiting evaluation. There are a few colon diverticula without inflammation. No colon wall thickening is seen. The appendix is normal. Urinary bladder is decompressed, limiting evaluation. Hysterectomy. No significant pelvic free fluid. Grade 1 anterolisthesis of L3 on L4 and L4-L5. Vacuum disc phenomenon L5/S1. IMPRESSION: 1. There is high-grade mid small bowel obstruction. Point of transition is a periumbilical hernia as described above. 2. Moderate right and small left pleural effusions. 3. Interlobular septal thickening suggests interstitial edema. 4. Moderate pericardial effusion. 5. Mild colon diverticulosis without diverticulitis. KUB 06/13 IMPRESSION: 1. The NG tube is in satisfactory position extending into the body of the stomach. 2. Left basilar atelectasis/infiltrate has developed. PE: GEN: NAD HEENT: Atraumatic, PERRL - NGT brownish LUNGS: CTAB HEART: RRR ABD: soft, tender right lower periumbilical EXTREMITY: No edema SKIN: No rashes, no jaundice NEURO/PSYCH: A & O 3 A/P: A/P: SBO, incisional hernia, h/o multiple abd surgeries Elevated LFTs - new, viral Hep serologies neg 2018 ACD (iron studies checked 2018) - Hgb slightly below baseline CRC screen - ?none Chronic constipation Diverticulosis S/p cholecystectomy ESRD on HD -- Check US/Doppler, follow labs. MARILIN BARR Jun 14, 2018 11:01
--- NOTE | 2018-06-14 11:52 | PDOC ---
Renal-Progress Notes Subjective Notes Notes FEELING BETTER History of Present Illness Hx of present illness STABLE Vitals Vitals Vital Signs Date Time Temp Pulse Resp B/P (MAP) Pulse Ox O2 Delivery O2 Flow Rate FiO2 06/14/18 11:00 98.0 68 18 148/58 (88) 94 Room Air 98.0 06/14/18 10:54 2.0 Weight Weight [ ] I.O. Intake and Output Intake and Output 06/14/18 06:59 Intake Total 0 ml Output Total 0 ml Balance 0 ml Intake Oral 0 ml Output Urine Total 0 ml Labs Labs Laboratory Tests Test 06/13/18 12:19 06/13/18 21:11 06/14/18 07:03 06/14/18 07:26 Glucose (Fingerstick) 116 mg/dL (70-99) 93 mg/dL (70-99) 70 mg/dL (70-99) White Blood Count 6.3 x10^3/uL (4.0-11.0) Red Blood Count 2.60 x10^6/uL (3.50-5.40) Hemoglobin 7.3 g/dL (12.0-15.5) Hematocrit 23.3 % (36.0-47.0) Mean Corpuscular Volume 90 fL (79-100) Mean Corpuscular Hemoglobin 28 pg (25-35) Mean Corpuscular Hemoglobin Concent 32 g/dL (31-37) Red Cell Distribution Width 17.3 % (11.5-14.5) Platelet Count 225 x10^3/uL (140-400) Neutrophils (%) (Auto) 79 % (31-73) Lymphocytes (%) (Auto) 9 % (24-48) Monocytes (%) (Auto) 7 % (0-9) Eosinophils (%) (Auto) 4 % (0-3) Basophils (%) (Auto) 1 % (0-3) Neutrophils # (Auto) 5.0 x10^3uL (1.8-7.7) Lymphocytes # (Auto) 0.5 x10^3/uL (1.0-4.8) Monocytes # (Auto) 0.5 x10^3/uL (0.0-1.1) Eosinophils # (Auto) 0.3 x10^3/uL (0.0-0.7) Basophils # (Auto) 0.1 x10^3/uL (0.0-0.2) Sodium Level 138 mmol/L (136-145) Potassium Level 5.1 mmol/L (3.5-5.1) Chloride Level 98 mmol/L (98-107) Carbon Dioxide Level 34 mmol/L (21-32) Anion Gap 6 (6-14) Blood Urea Nitrogen 33 mg/dL (7-20) Creatinine 4.9 mg/dL (0.6-1.0) Estimated GFR (Cockcroft-Gault) 8.9 BUN/Creatinine Ratio 7 (6-20) Glucose Level 75 mg/dL (70-99) Calcium Level 8.7 mg/dL (8.5-10.1) Total Bilirubin 0.8 mg/dL (0.2-1.0) Aspartate Amino Transf (AST/SGOT) 370 U/L (15-37) Alanine Aminotransferase (ALT/SGPT) 312 U/L (14-59) Alkaline Phosphatase 190 U/L (46-116) Total Protein 7.0 g/dL (6.4-8.2) Albumin 3.0 g/dL (3.4-5.0) Albumin/Globulin Ratio 0.8 (1.0-1.7) Test 06/14/18 09:06 Glucose (Fingerstick) 77 mg/dL (70-99) Physical Exam Musculoskeletal: Osteoarthritis Assessment Assessment IMP HYPERKALEMIA ANEMIA ESRD DM II HTN SBO PLAN SURGICAL EVAL AND TX HD TOMORROW PPN FOR NOW DIANNE D/W SURGERY AND FAMILY CYNDEE FLORES MD Jun 14, 2018 11:52
--- NOTE | 2018-06-14 12:00 | NUR ---
Per Dr. Rodas only a central line may be placed if IV goes bad. No PICC line.
--- NOTE | 2018-06-14 12:56 | RAD ---
EXAM: Zurita scale and color Doppler abdomen sonogram. HISTORY: Elevated liver function laboratory values. TECHNIQUE: Zurita scale and color Doppler sonographic imaging of the abdomen with spectral waveform analysis was performed. COMPARISON: CT dated 06/13/2018. FINDINGS: The liver is enlarged. No focal hepatic lesion is seen. There is biliary ductal dilatation. The gallbladder is surgically absent. The common bile duct is dilated to a caliber of 19 mm. The right kidney is atrophic, measuring 7.6 cm [id number]. The pancreas and inferior vena cava are unremarkable. The aorta is not formally assessed. There are patent hepatic and portal veins with normal directional flow. There is also a patent splenic vein with normal directional flow. No esophageal or gastric varices or recanalization of the umbilical vein is seen. There is no ascites. IMPRESSION: 1. Hepatomegaly. 2. Intrahepatic biliary ductal dilatation and common bile duct dilatation. This can be seen with reservoir effect status post closed segment. ERCP or MRCP can be performed if there is concern for an occult obstructing etiology. 3. Right renal atrophy. 4. Normal Doppler evaluation of the upper abdomen. Electronically signed by: Krystle Casillas MD (06/14/2018 12:53 PM) [email or web address]
--- NOTE | 2018-06-14 12:56 | RAD ---
EXAM: Zurita scale and color Doppler abdomen sonogram. HISTORY: Elevated liver function laboratory values. TECHNIQUE: Zurita scale and color Doppler sonographic imaging of the abdomen with spectral waveform analysis was performed. COMPARISON: CT dated 06/13/2018. FINDINGS: The liver is enlarged. No focal hepatic lesion is seen. There is biliary ductal dilatation. The gallbladder is surgically absent. The common bile duct is dilated to a caliber of 19 mm. The right kidney is atrophic, measuring 7.6 cm [id number]. The pancreas and inferior vena cava are unremarkable. The aorta is not formally assessed. There are patent hepatic and portal veins with normal directional flow. There is also a patent splenic vein with normal directional flow. No esophageal or gastric varices or recanalization of the umbilical vein is seen. There is no ascites. IMPRESSION: 1. Hepatomegaly. 2. Intrahepatic biliary ductal dilatation and common bile duct dilatation. This can be seen with reservoir effect status post closed segment. ERCP or MRCP can be performed if there is concern for an occult obstructing etiology. 3. Right renal atrophy. 4. Normal Doppler evaluation of the upper abdomen. Electronically signed by: Krystle Casillas MD (06/14/2018 12:53 PM) [email or web address]
[2018-06-14] MEDS: fentaNYL PF VIAL 100 MCG/2 ML VIAL IV PRN ×2 (13:44→22:30)
[2018-06-14] MEDS: AMINO AC 3%/ELECTROLYTE/GLYCER 1,000 ML IV SCH (13:44)
[2018-06-14] MEDS ORDERED: PHENOL ORAL SPRAY 177ML BOTTLE. PO PRN (16:15)
--- NOTE | 2018-06-14 17:38 | PDOC ---
PROGRESS NOTES Subjective Subjective Patient states she feels better but still has not had flatus or bowel movement. NG tube in place. Patient's electrolytes have improved with dialysis. Objective Objective Vital Signs Date Time Temp Pulse Resp B/P (MAP) Pulse Ox O2 Delivery O2 Flow Rate FiO2 06/14/18 15:20 Nasal Cannula 2.0 06/14/18 15:00 98.0 72 18 148/58 (88) 94 98.0 Intake and Output 06/14/18 07:00 Intake Total 0 ml Output Total 0 ml Balance 0 ml Intake Oral 0 ml Output Urine Total 0 ml Physical Exam Abdomen: Other (negative bowel sounds) Heart: Regular rate Extremities: No edema General: Alert Lungs: Clear to auscultation Assessment Assessment Problems Medical Problems: (1) Hyperkalemia Status: Acute (2) Small bowel obstruction Status: Acute 1. Small-bowel obstruction. 2. End-stage renal disease, on dialysis. 3. Chronic anemia with admitting hemoglobin of 7.7. 4. Type 2 diabetes. Plan Plan of Care Attending continue NG tube decompression. Continue surgical management. Continue dialysis treatment. Comment Review of Relevant I have reviewed the following items jeremiah (where applicable) has been applied. Labs Laboratory Tests Test 06/13/18 08:54 06/13/18 12:19 06/13/18 21:11 06/14/18 07:03 White Blood Count 7.7 x10^3/uL (4.0-11.0) 6.3 x10^3/uL (4.0-11.0) Red Blood Count 2.63 x10^6/uL (3.50-5.40) 2.60 x10^6/uL (3.50-5.40) Hemoglobin 7.7 g/dL (12.0-15.5) 7.3 g/dL (12.0-15.5) Hematocrit 23.3 % (36.0-47.0) 23.3 % (36.0-47.0) Mean Corpuscular Volume 89 fL (79-100) 90 fL (79-100) Mean Corpuscular Hemoglobin 29 pg (25-35) 28 pg (25-35) Mean Corpuscular Hemoglobin Concent 33 g/dL (31-37) 32 g/dL (31-37) Red Cell Distribution Width 17.3 % (11.5-14.5) 17.3 % (11.5-14.5) Platelet Count 246 x10^3/uL (140-400) 225 x10^3/uL (140-400) Neutrophils (%) (Auto) 84 % (31-73) 79 % (31-73) Lymphocytes (%) (Auto) 6 % (24-48) 9 % (24-48) Monocytes (%) (Auto) 7 % (0-9) 7 % (0-9) Eosinophils (%) (Auto) 3 % (0-3) 4 % (0-3) Basophils (%) (Auto) 1 % (0-3) 1 % (0-3) Neutrophils # (Auto) 6.5 x10^3uL (1.8-7.7) 5.0 x10^3uL (1.8-7.7) Lymphocytes # (Auto) 0.5 x10^3/uL (1.0-4.8) 0.5 x10^3/uL (1.0-4.8) Monocytes # (Auto) 0.5 x10^3/uL (0.0-1.1) 0.5 x10^3/uL (0.0-1.1) Eosinophils # (Auto) 0.2 x10^3/uL (0.0-0.7) 0.3 x10^3/uL (0.0-0.7) Basophils # (Auto) 0.1 x10^3/uL (0.0-0.2) 0.1 x10^3/uL (0.0-0.2) Sodium Level 137 mmol/L (136-145) 138 mmol/L (136-145) Potassium Level 5.4 mmol/L (3.5-5.1) 5.1 mmol/L (3.5-5.1) Chloride Level 94 mmol/L (98-107) 98 mmol/L (98-107) Carbon Dioxide Level 28 mmol/L (21-32) 34 mmol/L (21-32) Anion Gap 15 (6-14) 6 (6-14) Blood Urea Nitrogen 65 mg/dL (7-20) 33 mg/dL (7-20) Creatinine 7.3 mg/dL (0.6-1.0) 4.9 mg/dL (0.6-1.0) Estimated GFR (Cockcroft-Gault) 5.6 8.9 BUN/Creatinine Ratio 9 (6-20) 7 (6-20) Glucose Level 132 mg/dL (70-99) 75 mg/dL (70-99) Calcium Level 8.6 mg/dL (8.5-10.1) 8.7 mg/dL (8.5-10.1) Total Bilirubin 0.4 mg/dL (0.2-1.0) 0.8 mg/dL (0.2-1.0) Aspartate Amino Transf (AST/SGOT) 19 U/L (15-37) 370 U/L (15-37) Alanine Aminotransferase (ALT/SGPT) 20 U/L (14-59) 312 U/L (14-59) Alkaline Phosphatase 79 U/L (46-116) 190 U/L (46-116) Troponin I Quantitative < 0.017 ng/mL (0.000-0.055) Total Protein 7.1 g/dL (6.4-8.2) 7.0 g/dL (6.4-8.2) Albumin 3.4 g/dL (3.4-5.0) 3.0 g/dL (3.4-5.0) Albumin/Globulin Ratio 0.9 (1.0-1.7) 0.8 (1.0-1.7) Lipase 135 U/L (73-393) Glucose (Fingerstick) 116 mg/dL (70-99) 93 mg/dL (70-99) Test 06/14/18 07:26 06/14/18 09:06 06/14/18 11:55 06/14/18 16:44 Glucose (Fingerstick) 70 mg/dL (70-99) 77 mg/dL (70-99) 70 mg/dL (70-99) 80 mg/dL (70-99) Laboratory Tests Test 06/13/18 21:11 06/14/18 07:03 06/14/18 07:26 06/14/18 09:06 Glucose (Fingerstick) 93 mg/dL (70-99) 70 mg/dL (70-99) 77 mg/dL (70-99) White Blood Count 6.3 x10^3/uL (4.0-11.0) Red Blood Count 2.60 x10^6/uL (3.50-5.40) Hemoglobin 7.3 g/dL (12.0-15.5) Hematocrit 23.3 % (36.0-47.0) Mean Corpuscular Volume 90 fL (79-100) Mean Corpuscular Hemoglobin 28 pg (25-35) Mean Corpuscular Hemoglobin Concent 32 g/dL (31-37) Red Cell Distribution Width 17.3 % (11.5-14.5) Platelet Count 225 x10^3/uL (140-400) Neutrophils (%) (Auto) 79 % (31-73) Lymphocytes (%) (Auto) 9 % (24-48) Monocytes (%) (Auto) 7 % (0-9) Eosinophils (%) (Auto) 4 % (0-3) Basophils (%) (Auto) 1 % (0-3) Neutrophils # (Auto) 5.0 x10^3uL (1.8-7.7) Lymphocytes # (Auto) 0.5 x10^3/uL (1.0-4.8) Monocytes # (Auto) 0.5 x10^3/uL (0.0-1.1) Eosinophils # (Auto) 0.3 x10^3/uL (0.0-0.7) Basophils # (Auto) 0.1 x10^3/uL (0.0-0.2) Sodium Level 138 mmol/L (136-145) Potassium Level 5.1 mmol/L (3.5-5.1) Chloride Level 98 mmol/L (98-107) Carbon Dioxide Level 34 mmol/L (21-32) Anion Gap 6 (6-14) Blood Urea Nitrogen 33 mg/dL (7-20) Creatinine 4.9 mg/dL (0.6-1.0) Estimated GFR (Cockcroft-Gault) 8.9 BUN/Creatinine Ratio 7 (6-20) Glucose Level 75 mg/dL (70-99) Calcium Level 8.7 mg/dL (8.5-10.1) Total Bilirubin 0.8 mg/dL (0.2-1.0) Aspartate Amino Transf (AST/SGOT) 370 U/L (15-37) Alanine Aminotransferase (ALT/SGPT) 312 U/L (14-59) Alkaline Phosphatase 190 U/L (46-116) Total Protein 7.0 g/dL (6.4-8.2) Albumin 3.0 g/dL (3.4-5.0) Albumin/Globulin Ratio 0.8 (1.0-1.7) Test 06/14/18 11:55 06/14/18 16:44 Glucose (Fingerstick) 70 mg/dL (70-99) 80 mg/dL (70-99) Medications Current Medications Morphine Sulfate (Morphine Sulfate) 5 mg 1X ONCE IV Last administered on 09:36; Start 06/13/18 at 08:30; Stop 06/13/18 at 08:32; Status DC Ondansetron HCl (Zofran) 4 mg 1X ONCE IV Last administered on 06/13/18at 09:36 ; Start 06/13/18 at 09:00; Stop 06/13/18 at 09:01; Status DC Morphine Sulfate (Morphine Sulfate) 4 mg PRN Q2HR PRN IV PAIN Last administered on 06/13/18at 22:31; Start 06/13/18 at 11:00; Stop 06/14/18 at 10:59 ; Status DC Darbepoetin Uvaldo (Aranesp) 60 mcg WEEKLYHS SQ ; Start 06/13/18 at 21:00; Status Cancel Albuterol/ Ipratropium (Duoneb) 3 ml RTQID NEB Last administered on 06/14/18at 15:19; Start 06/13/18 at 16:00 Darbepoetin Uvaldo (Aranesp) 60 mcg WEEKLYHS SQ Last administered on 06/13/18at 22 :29; Start 06/13/18 at 21:00 Hydralazine HCl (Apresoline Inj) 10 mg PRN Q4HRS PRN IVP ELEVATED BP, SEE COMMENTS; Start 06/13/18 at 13:15 Budesonide (Pulmicort) 0.5 mg RTBID NEB Last administered on 06/14/18at 07:18; Start 06/13/18 at 20:00 Metoprolol Tartrate (Lopressor Vial) 5 mg Q6HRS IVP Last administered on at 13:52; Start 06/13/18 at 18:00 Insulin Human Lispro (HumaLOG) 0-12 UNITS QIDACHS SQ ; Start 06/13/18 at 16:30 Sodium Chloride 1,000 ml @ 1,000 mls/hr Q1H PRN IV hypotension; Start 06/13/18 at 16:21; Stop 06/13/18 at 22:20; Status DC Sodium Chloride 1,000 ml @ 400 mls/hr Q2H30M PRN IV PATENCY; Start 06/13/18 at 16:21; Stop 06/14/18 at 04:20; Status DC Info (PHARMACY MONITORING -- do not chart) 1 each PRN DAILY PRN MC SEE COMMENTS ; Start 06/13/18 at 16:30 Dextrose (Dextrose 50%-Water Syringe) 12.5 gm PRN Q15MIN PRN IV SEE COMMENTS Last administered on 06/14/18at 07:53; Start 06/14/18 at 07:45 Amino Acids/ Glycerin/ Electrolytes 1,000 ml @ 80 mls/hr [id number] IV Last administered on 06/14/18at 13:44; Start 06/14/18 at 12:00 Fentanyl Citrate (Fentanyl 2ml Vial) 50 mcg PRN Q2HR PRN IV PAIN Last administered on 06/14/18at 13:44; Start 06/14/18 at 13:15 Throat Lozenges (Chloraseptic) 1 spray PRN Q2HR PRN PO SORE THROAT; Start 06/14 at 16:15 Active Scripts Active [Darbepoetin Uvaldo In Polysorbat] 60 MCG/0.3 ML Disp.syrin 60 Mcg SQ WEEKLYHS Duoneb 0.5-3(2.5) Mg/3 Ml (Albuterol/Ipratropium) 3 Ml Ampul.neb 3 Ml NEB Q6HRS 30 Days Nephro-Deborah Rx Tablet (Vit B Cmplx 3/Fa/Vit C/Biotin) 1 Each Tablet 1 Each PO DAILY 90 Days Metoprolol Tartrate 50 Mg Tablet 50 Mg PO BID 30 Days Reported Calcium Acetate 667 Mg Tablet 667 Mg PO TIDWMEALS Furosemide 40 Mg Tablet 40 Mg PO BID Lisinopril 20 Mg Tablet 20 Mg PO DAILY Sodium Bicarbonate 650 Mg Tablet 10 Mg PO TID Amlodipine Besylate 10 Mg Tablet 10 Mg PO DAILY Tums (Calcium Carbonate) 300 Mg Tab.chew 300 Mg PO BIDAC Novolog (Insulin Aspart) 100 Unit/1 Ml Cartridge 5 Unit SQ TIDBFRMEAL Lantus Solostar (Insulin Glargine,Hum.rec.anlog) 100 Unit/1 Ml Insuln.pen 10 Unit SQ BID Lipitor (Atorvastatin Calcium) 40 Mg Tablet 40 Mg PO HS Vitals/I & O Vital Sign - Last 24 Hours 06/13/18 06/13/18 06/13/18 06/13/18 19:00 19:37 20:00 21:01 Temp 98.1 98.1 Pulse 78 Resp 18 B/P (MAP) 153/54 (87) Pulse Ox 92 96 O2 Delivery Nasal Cannula Nasal Cannula Nasal Cannula Nasal Cannula O2 Flow Rate 2.0 2.0 2.0 2.0 06/13/18 06/13/18 06/13/18 06/14/18 22:31 23:00 23:01 00:00 Temp 98.4 98.4 Pulse 94 84 Resp 18 18 20 B/P (MAP) 140/64 (89) 137/50 Pulse Ox 95 O2 Delivery Nasal Cannula Nasal Cannula Nasal Cannula O2 Flow Rate 2.0 2.0 2.0 06/14/18 06/14/18 06/14/18 06/14/18 03:00 05:27 07:00 07:18 Temp 98.5 98.0 98.5 98.0 Pulse 81 80 70 Resp 18 18 B/P (MAP) 141/58 (85) 159/66 153/61 (91) Pulse Ox 95 99 95 O2 Delivery Nasal Cannula Room Air Nasal Cannula O2 Flow Rate 2.0 2.0 06/14/18 06/14/18 06/14/18 06/14/18 08:00 10:54 11:00 13:44 Temp 98.0 98.0 Pulse 68 Resp 18 B/P (MAP) 148/58 (88) Pulse Ox 92 94 O2 Delivery Nasal Cannula Nasal Cannula Room Air Room Air O2 Flow Rate 2.0 2.0 06/14/18 06/14/18 06/14/18 06/14/18 13:52 14:14 15:00 15:20 Temp 98.0 98.0 Pulse 68 72 Resp 18 B/P (MAP) 148/58 148/58 (88) Pulse Ox 94 O2 Delivery Room Air Room Air Nasal Cannula O2 Flow Rate 2.0 Intake and Output 3/28/19 3/28/19 3/29/19 15:00 23:00 07:00 Intake Total 0 ml 0 ml Output Total 0 ml Balance 0 ml 0 ml NATE DE MD Jun 14, 2018 17:38
[2018-06-14] MEDS: hydrALAZINE 20 MG/ML VIAL. IVP PRN (20:30)
--- NOTE | 2018-06-14 22:58 | NUR ---
Pt. lost IV access around 2029 and pt.'s blood pressure is high this evening. paged for other another form to decrease blood pressure. Dr. Dickerson stated she will put orders in for a clonidine patch tonight. Dr. Dickerson asked why Dr. Rodas did not want PICC line and this nurse was unable to answer the question. This nurse paged Dr. Torre who was superintendent landfill operations for Dr. Rodas. He stated to go ahead and place PICC. PICC order was put in and called to [facility]. IV was tried multiple times this evening (about 5). ALY Kunz from ICU was called and he was able to insert a 22G on R wrist. Line is patent and fluids were restarted. 2314-- Pt.'s blood pressure has gone down after IV pain medication.
[2018-06-15] VITALS (11 sets, daily range): BP systolic 147–208; BP diastolic 58–83
[2018-06-15] MEDS: AMINO AC 3%/ELECTROLYTE/GLYCER 1,000 ML IV SCH ×3 (02:17→21:15)
[2018-06-15] MEDS: hydrALAZINE 20 MG/ML VIAL. IVP PRN ×4 (04:13→18:27)
[2018-06-15 05:01] LABS: HEMATOCRIT 21.7 % (36.0-47.0); HEMOGLOBIN 7.1 g/dL (12.0-15.5); RED BLOOD COUNT 2.43 x10^6/uL (3.50-5.40); RED CELL DISTRIBUTION WIDTH 17.4 % (11.5-14.5); WHITE BLOOD COUNT 6.7 x10^3/uL (4.0-11.0)
[2018-06-15 05:37] LABS: CALCIUM 8.6 mg/dL (8.5-10.1); CREATININE 6.8 mg/dL (0.6-1.0); GFR 6.1; POTASSIUM 5.9 mmol/L (3.5-5.1)
[2018-06-15] MEDS: METOPROLOL TARTRATE 5 MG/5 ML VIAL. IVP SCH ×4 (05:39→23:46)
[2018-06-15 06:12] LABS: ALBUMIN 2.7 g/dL (3.4-5.0); DIRECT BILIRUBIN 0.4 mg/dL (0.0-0.2); TOTAL BILIRUBIN 0.8 mg/dL (0.2-1.0); TOTAL PROTEIN 6.4 g/dL (6.4-8.2)
[2018-06-15] MEDS: INSULIN LISPRO 300 UNITS/3 ML INSULN.PEN. SQ SCH ×4 (07:30→21:07)
[2018-06-15] MEDS ORDERED: IV NORMAL SALINE 1000ML BAG 1,000 ML IV PRN ×2 (07:53)
[2018-06-15] MEDS ORDERED: diphenhydrAMINE 50 MG/ML VIAL IV PRN ×2 (08:00)
[2018-06-15] MEDS ORDERED: ACETAMINOPHEN 500 MG TABLET PO PRN (08:00)
[2018-06-15] MEDS ORDERED: DIALYSIS PATIENT. MC PRN (08:00)
[2018-06-15] MEDS ORDERED: ALBUMIN HUMAN 25% 200 ML IV PRN (08:00)
[2018-06-15] MEDS: IPRATRPIUM/ALBUTEROL 0.5/2.5MG 3 ML NEBU. NEB SCH ×4 (08:06→23:57)
[2018-06-15] MEDS: BUDESONIDE 0.5 MG/2 ML NEBU. NEB SCH ×2 (08:06→23:57)
--- NOTE | 2018-06-15 09:00 | NUR ---
This nurse discussed BP with MD on the floor, no additional instructions at this time.
--- NOTE | 2018-06-15 10:27 | PDOC ---
SUBJECTIVE Subjective Pt is currently getting HD. States that she is feeling better. Abdominal pain improved but present with palpation. Denies vomiting. Not passing gas. Denies difficulties with breathing. BP improved with HD OBJECTIVE Vital Signs Vital Signs Date Time Temp Pulse Resp B/P (MAP) Pulse Ox O2 Delivery O2 Flow Rate FiO2 06/15/18 08:26 86 205/69 06/15/18 08:16 205/69 (114) 06/15/18 08:07 97 Nasal Cannula 2.0 06/15/18 07:00 98.3 86 18 191/72 (111) 97 Nasal Cannula 2.0 98.3 06/15/18 06:30 83 189/67 (107) 06/15/18 05:39 95 208/83 06/15/18 05:34 208/83 (124) 06/15/18 04:13 95 177/61 06/15/18 03:59 98.5 96 20 177/61 (99) 97 Nasal Cannula 2.0 98.5 06/14/18 23:59 98.9 105 20 128/57 (80) 97 Nasal Cannula 2.0 98.9 06/14/18 23:20 98.9 105 20 178/57 (97) 97 Nasal Cannula 2.0 98.9 06/14/18 23:14 105 178/57 06/14/18 23:11 20 Nasal Cannula 2.0 06/14/18 22:30 18 Room Air 06/14/18 20:32 98.9 98 17 209/69 (115) 98 Nasal Cannula 2.0 98.9 06/14/18 20:30 98 209/69 06/14/18 20:08 98 Nasal Cannula 2.0 06/14/18 20:03 98 Nasal Cannula 2.0 06/14/18 19:59 Nasal Cannula 06/14/18 19:57 Nasal Cannula 2.0 06/14/18 18:01 82 180/60 06/14/18 15:20 Nasal Cannula 2.0 06/14/18 15:00 98.0 72 18 148/58 (88) 94 Room Air 98.0 06/14/18 13:52 68 148/58 06/14/18 13:44 Room Air 06/14/18 11:00 98.0 68 18 148/58 (88) 94 Room Air 98.0 06/14/18 10:54 92 Nasal Cannula 2.0 I & O Intake and Output 06/15/18 07:00 Intake Total 0 ml Output Total 600 ml Balance -600 ml Intake Oral 0 ml Output Urine Total 0 ml Gastric Drainage Total 600 ml PHYSICAL EXAM Physical Exam GEN: NAD, AOx3 HEENT: MMM, EOMI, no scleral icterus/injection Cardiac: RRR, no M/R/G Lungs: CTAB Ab: soft, TTP RUQ, suprapubic Ext: no erythema/edema LE bilaterally Nuero: CN2-12 GI ASSESSMENT/PLAN Assessment/Plan Pt is a 63yo female admitted with SBO 1. Small-bowel obstruction- Surgery following. Currently with NG. Still no flatus or BM. Receiving PPN. Pt continues to lose IV access, central access planned for today 2. End-stage renal disease- on HD. Renal following. K elevated this morning to 5.9 3. Chronic anemia- acute on chronic. Current Hb 7.1, if decreases will give transfusion. Currently receiving Aranesp 4. Type 2 diabetes- HbA1C pending, BS currently controlled 5. Transaminitis- with ductal dilatation. GI following. CTM 6. PEM- severe 7. Pleural effusions 8. HTN- improving with HD. Currently BP 135/85 COMMENT Lab Laboratory Tests Test 06/14/18 11:55 06/14/18 16:44 06/14/18 21:11 06/15/18 03:40 Glucose (Fingerstick) 70 mg/dL (70-99) 80 mg/dL (70-99) 79 mg/dL (70-99) White Blood Count 6.7 x10^3/uL (4.0-11.0) Red Blood Count 2.43 x10^6/uL (3.50-5.40) Hemoglobin 7.1 g/dL (12.0-15.5) Hematocrit 21.7 % (36.0-47.0) Mean Corpuscular Volume 89 fL (79-100) Mean Corpuscular Hemoglobin 29 pg (25-35) Mean Corpuscular Hemoglobin Concent 33 g/dL (31-37) Red Cell Distribution Width 17.4 % (11.5-14.5) Platelet Count 219 x10^3/uL (140-400) Sodium Level 139 mmol/L (136-145) Potassium Level 5.9 mmol/L (3.5-5.1) Chloride Level 97 mmol/L (98-107) Carbon Dioxide Level 31 mmol/L (21-32) Anion Gap 11 (6-14) Blood Urea Nitrogen 53 mg/dL (7-20) Creatinine 6.8 mg/dL (0.6-1.0) Estimated GFR (Cockcroft-Gault) 6.1 Glucose Level 89 mg/dL (70-99) Calcium Level 8.6 mg/dL (8.5-10.1) Total Bilirubin 0.8 mg/dL (0.2-1.0) Direct Bilirubin 0.4 mg/dL (0.0-0.2) Aspartate Amino Transf (AST/SGOT) 125 U/L (15-37) Alanine Aminotransferase (ALT/SGPT) 196 U/L (14-59) Alkaline Phosphatase 168 U/L (46-116) Total Protein 6.4 g/dL (6.4-8.2) Albumin 2.7 g/dL (3.4-5.0) Test 06/15/18 07:43 Glucose (Fingerstick) 96 mg/dL (70-99) CHERRY WILKINSON MD Jun 15, 2018 10:27
--- NOTE | 2018-06-15 11:34 | PDOC ---
G I PROGRESS NOTE Subjective Pain less. Denies stool, flatus. Physical Exam Lungs clear. RRR Abdomen soft, hernia largely reduced. Mild mid-abd tenderness. Some bowel sounds. Review of Relevant I have reviewed the following items jeremiah (where applicable) has been applied. Labs Laboratory Tests Test 06/13/18 12:19 06/13/18 21:11 06/14/18 07:03 06/14/18 07:26 Glucose (Fingerstick) 116 mg/dL (70-99) 93 mg/dL (70-99) 70 mg/dL (70-99) White Blood Count 6.3 x10^3/uL (4.0-11.0) Red Blood Count 2.60 x10^6/uL (3.50-5.40) Hemoglobin 7.3 g/dL (12.0-15.5) Hematocrit 23.3 % (36.0-47.0) Mean Corpuscular Volume 90 fL (79-100) Mean Corpuscular Hemoglobin 28 pg (25-35) Mean Corpuscular Hemoglobin Concent 32 g/dL (31-37) Red Cell Distribution Width 17.3 % (11.5-14.5) Platelet Count 225 x10^3/uL (140-400) Neutrophils (%) (Auto) 79 % (31-73) Lymphocytes (%) (Auto) 9 % (24-48) Monocytes (%) (Auto) 7 % (0-9) Eosinophils (%) (Auto) 4 % (0-3) Basophils (%) (Auto) 1 % (0-3) Neutrophils # (Auto) 5.0 x10^3uL (1.8-7.7) Lymphocytes # (Auto) 0.5 x10^3/uL (1.0-4.8) Monocytes # (Auto) 0.5 x10^3/uL (0.0-1.1) Eosinophils # (Auto) 0.3 x10^3/uL (0.0-0.7) Basophils # (Auto) 0.1 x10^3/uL (0.0-0.2) Sodium Level 138 mmol/L (136-145) Potassium Level 5.1 mmol/L (3.5-5.1) Chloride Level 98 mmol/L (98-107) Carbon Dioxide Level 34 mmol/L (21-32) Anion Gap 6 (6-14) Blood Urea Nitrogen 33 mg/dL (7-20) Creatinine 4.9 mg/dL (0.6-1.0) Estimated GFR (Cockcroft-Gault) 8.9 BUN/Creatinine Ratio 7 (6-20) Glucose Level 75 mg/dL (70-99) Calcium Level 8.7 mg/dL (8.5-10.1) Total Bilirubin 0.8 mg/dL (0.2-1.0) Aspartate Amino Transf (AST/SGOT) 370 U/L (15-37) Alanine Aminotransferase (ALT/SGPT) 312 U/L (14-59) Alkaline Phosphatase 190 U/L (46-116) Total Protein 7.0 g/dL (6.4-8.2) Albumin 3.0 g/dL (3.4-5.0) Albumin/Globulin Ratio 0.8 (1.0-1.7) Test 06/14/18 09:06 06/14/18 11:55 06/14/18 16:44 06/14/18 21:11 Glucose (Fingerstick) 77 mg/dL (70-99) 70 mg/dL (70-99) 80 mg/dL (70-99) 79 mg/dL (70-99) Test 06/15/18 03:40 06/15/18 07:43 White Blood Count 6.7 x10^3/uL (4.0-11.0) Red Blood Count 2.43 x10^6/uL (3.50-5.40) Hemoglobin 7.1 g/dL (12.0-15.5) Hematocrit 21.7 % (36.0-47.0) Mean Corpuscular Volume 89 fL (79-100) Mean Corpuscular Hemoglobin 29 pg (25-35) Mean Corpuscular Hemoglobin Concent 33 g/dL (31-37) Red Cell Distribution Width 17.4 % (11.5-14.5) Platelet Count 219 x10^3/uL (140-400) Sodium Level 139 mmol/L (136-145) Potassium Level 5.9 mmol/L (3.5-5.1) Chloride Level 97 mmol/L (98-107) Carbon Dioxide Level 31 mmol/L (21-32) Anion Gap 11 (6-14) Blood Urea Nitrogen 53 mg/dL (7-20) Creatinine 6.8 mg/dL (0.6-1.0) Estimated GFR (Cockcroft-Gault) 6.1 Glucose Level 89 mg/dL (70-99) Calcium Level 8.6 mg/dL (8.5-10.1) Total Bilirubin 0.8 mg/dL (0.2-1.0) Direct Bilirubin 0.4 mg/dL (0.0-0.2) Aspartate Amino Transf (AST/SGOT) 125 U/L (15-37) Alanine Aminotransferase (ALT/SGPT) 196 U/L (14-59) Alkaline Phosphatase 168 U/L (46-116) Total Protein 6.4 g/dL (6.4-8.2) Albumin 2.7 g/dL (3.4-5.0) Glucose (Fingerstick) 96 mg/dL (70-99) Laboratory Tests Test 06/14/18 11:55 06/14/18 16:44 06/14/18 21:11 06/15/18 03:40 Glucose (Fingerstick) 70 mg/dL (70-99) 80 mg/dL (70-99) 79 mg/dL (70-99) White Blood Count 6.7 x10^3/uL (4.0-11.0) Red Blood Count 2.43 x10^6/uL (3.50-5.40) Hemoglobin 7.1 g/dL (12.0-15.5) Hematocrit 21.7 % (36.0-47.0) Mean Corpuscular Volume 89 fL (79-100) Mean Corpuscular Hemoglobin 29 pg (25-35) Mean Corpuscular Hemoglobin Concent 33 g/dL (31-37) Red Cell Distribution Width 17.4 % (11.5-14.5) Platelet Count 219 x10^3/uL (140-400) Sodium Level 139 mmol/L (136-145) Potassium Level 5.9 mmol/L (3.5-5.1) Chloride Level 97 mmol/L (98-107) Carbon Dioxide Level 31 mmol/L (21-32) Anion Gap 11 (6-14) Blood Urea Nitrogen 53 mg/dL (7-20) Creatinine 6.8 mg/dL (0.6-1.0) Estimated GFR (Cockcroft-Gault) 6.1 Glucose Level 89 mg/dL (70-99) Calcium Level 8.6 mg/dL (8.5-10.1) Total Bilirubin 0.8 mg/dL (0.2-1.0) Direct Bilirubin 0.4 mg/dL (0.0-0.2) Aspartate Amino Transf (AST/SGOT) 125 U/L (15-37) Alanine Aminotransferase (ALT/SGPT) 196 U/L (14-59) Alkaline Phosphatase 168 U/L (46-116) Total Protein 6.4 g/dL (6.4-8.2) Albumin 2.7 g/dL (3.4-5.0) Test 06/15/18 07:43 Glucose (Fingerstick) 96 mg/dL (70-99) LFT"s better. Vitals/I & O Vital Sign - Last 24 Hours 06/14/18 06/14/18 06/14/18 06/14/18 13:44 13:52 15:00 15:20 Temp 98.0 98.0 Pulse 68 72 Resp 18 B/P (MAP) 148/58 148/58 (88) Pulse Ox 94 O2 Delivery Room Air Room Air Nasal Cannula O2 Flow Rate 2.0 06/14/18 06/14/18 06/14/18 06/14/18 18:01 19:57 19:59 20:03 Pulse 82 B/P (MAP) 180/60 Pulse Ox 98 O2 Delivery Nasal Cannula Nasal Cannula Nasal Cannula O2 Flow Rate 2.0 2.0 06/14/18 06/14/18 06/14/18 06/14/18 20:08 20:30 20:32 22:30 Temp 98.9 98.9 Pulse 98 98 Resp 17 18 B/P (MAP) 209/69 209/69 (115) Pulse Ox 98 98 O2 Delivery Nasal Cannula Nasal Cannula Room Air O2 Flow Rate 2.0 2.0 06/14/18 06/14/18 06/14/18 06/14/18 23:11 23:14 23:20 23:59 Temp 98.9 98.9 98.9 98.9 Pulse 105 105 105 Resp 20 20 20 B/P (MAP) 178/57 178/57 (97) 128/57 (80) Pulse Ox 97 97 O2 Delivery Nasal Cannula Nasal Cannula Nasal Cannula O2 Flow Rate 2.0 2.0 2.0 06/15/18 06/15/18 06/15/18 06/15/18 03:59 04:13 05:34 05:39 Temp 98.5 98.5 Pulse 96 95 95 Resp 20 B/P (MAP) 177/61 (99) 177/61 208/83 (124) 208/83 Pulse Ox 97 O2 Delivery Nasal Cannula O2 Flow Rate 2.0 06/15/18 06/15/18 06/15/18 06/15/18 06:30 07:00 08:00 08:07 Temp 98.3 98.3 Pulse 83 86 Resp 18 B/P (MAP) 189/67 (107) 191/72 (111) Pulse Ox 97 97 O2 Delivery Nasal Cannula Nasal Cannula Nasal Cannula O2 Flow Rate 2.0 2.0 2.0 06/15/18 06/15/18 08:16 08:26 Pulse 86 B/P (MAP) 205/69 (114) 205/69 Intake and Output 06/14/18 06/14/18 06/15/18 14:59 22:59 06:59 Intake Total 0 ml 0 ml Output Total 300 ml 0 ml 300 ml Balance -300 ml 0 ml -300 ml Problem List Problems Medical Problems: (1) Hyperkalemia Status: Acute (2) Small bowel obstruction Status: Acute Assessment SBO from ; seems largely decompressed, not resolved. Elevated LFT's with downward trend. Plan of Care Note Continue NGT, etc. Continue monitor LFT's. If surgery contemplated, would certainly do MRCP before. Otherwise defer for now. NATE LUCIANO MD Jun 15, 2018 11:34
--- NOTE | 2018-06-15 11:57 | NUR ---
FACULTY CO-SIGN I have reviewed the documentation by Sincere Mejia certified nursing assistant instructor, [facility]: Addendum: 06/15/18 at 1158 by HARSHA OSHEA RN Amended: Links added.
--- NOTE | 2018-06-15 13:00 | NUR ---
This nurse discussed placement of central line with patient, patient refused placement at this time. Discussed with family/patient at bedside if IV access is lost at night, no replacement, and BP concerns. Patient still declined, this nurse notified Ren (food consultant) at [phone] of this discussion, and will keep informed of any developments. No PICC line confirmed, only Central Line to be placed. This nurse will continue to monitor.
--- NOTE | 2018-06-15 15:42 | PDOC ---
PROGRESS NOTES Subjective Subjective SEEN IN FOLLOW UP OF ESRD Objective Objective Vital Signs Date Time Temp Pulse Resp B/P (MAP) Pulse Ox O2 Delivery O2 Flow Rate FiO2 06/15/18 15:38 102 198/76 06/15/18 13:48 18 99 Room Air 06/15/18 08:07 2.0 06/15/18 07:00 98.3 98.3 Intake and Output 06/15/18 06:59 Intake Total 0 ml Output Total 600 ml Balance -600 ml Intake Oral 0 ml Output Urine Total 0 ml Gastric Drainage Total 600 ml Physical Exam Abdomen: Normal bowel sounds, Soft, No tenderness, No hepatosplenomegaly, No masses, Other (NG) Heart: Regular rate, Normal S1, Normal S2, No murmurs, Gallops Extremities: No clubbing, No cyanosis, No edema, Normal pulses, No tenderness/ swelling General: Alert, Oriented X3, Cooperative, No acute distress Lungs: Clear to auscultation, Normal air movement Diagnosis RENAL FAILURE: ESRD Assessment Assessment Problems Medical Problems: (1) Hyperkalemia Status: Acute (2) Small bowel obstruction Status: Acute Plan Plan of Care DIALYSIS TODAY AND TOLERATED WELL Comment Review of Relevant I have reviewed the following items jeremiah (where applicable) has been applied. Labs Laboratory Tests Test 06/13/18 21:11 06/14/18 07:03 06/14/18 07:26 06/14/18 09:06 Glucose (Fingerstick) 93 mg/dL (70-99) 70 mg/dL (70-99) 77 mg/dL (70-99) White Blood Count 6.3 x10^3/uL (4.0-11.0) Red Blood Count 2.60 x10^6/uL (3.50-5.40) Hemoglobin 7.3 g/dL (12.0-15.5) Hematocrit 23.3 % (36.0-47.0) Mean Corpuscular Volume 90 fL (79-100) Mean Corpuscular Hemoglobin 28 pg (25-35) Mean Corpuscular Hemoglobin Concent 32 g/dL (31-37) Red Cell Distribution Width 17.3 % (11.5-14.5) Platelet Count 225 x10^3/uL (140-400) Neutrophils (%) (Auto) 79 % (31-73) Lymphocytes (%) (Auto) 9 % (24-48) Monocytes (%) (Auto) 7 % (0-9) Eosinophils (%) (Auto) 4 % (0-3) Basophils (%) (Auto) 1 % (0-3) Neutrophils # (Auto) 5.0 x10^3uL (1.8-7.7) Lymphocytes # (Auto) 0.5 x10^3/uL (1.0-4.8) Monocytes # (Auto) 0.5 x10^3/uL (0.0-1.1) Eosinophils # (Auto) 0.3 x10^3/uL (0.0-0.7) Basophils # (Auto) 0.1 x10^3/uL (0.0-0.2) Sodium Level 138 mmol/L (136-145) Potassium Level 5.1 mmol/L (3.5-5.1) Chloride Level 98 mmol/L (98-107) Carbon Dioxide Level 34 mmol/L (21-32) Anion Gap 6 (6-14) Blood Urea Nitrogen 33 mg/dL (7-20) Creatinine 4.9 mg/dL (0.6-1.0) Estimated GFR (Cockcroft-Gault) 8.9 BUN/Creatinine Ratio 7 (6-20) Glucose Level 75 mg/dL (70-99) Calcium Level 8.7 mg/dL (8.5-10.1) Total Bilirubin 0.8 mg/dL (0.2-1.0) Aspartate Amino Transf (AST/SGOT) 370 U/L (15-37) Alanine Aminotransferase (ALT/SGPT) 312 U/L (14-59) Alkaline Phosphatase 190 U/L (46-116) Total Protein 7.0 g/dL (6.4-8.2) Albumin 3.0 g/dL (3.4-5.0) Albumin/Globulin Ratio 0.8 (1.0-1.7) Test 06/14/18 11:55 06/14/18 16:44 06/14/18 21:11 06/15/18 03:40 Glucose (Fingerstick) 70 mg/dL (70-99) 80 mg/dL (70-99) 79 mg/dL (70-99) White Blood Count 6.7 x10^3/uL (4.0-11.0) Red Blood Count 2.43 x10^6/uL (3.50-5.40) Hemoglobin 7.1 g/dL (12.0-15.5) Hematocrit 21.7 % (36.0-47.0) Mean Corpuscular Volume 89 fL (79-100) Mean Corpuscular Hemoglobin 29 pg (25-35) Mean Corpuscular Hemoglobin Concent 33 g/dL (31-37) Red Cell Distribution Width 17.4 % (11.5-14.5) Platelet Count 219 x10^3/uL (140-400) Sodium Level 139 mmol/L (136-145) Potassium Level 5.9 mmol/L (3.5-5.1) Chloride Level 97 mmol/L (98-107) Carbon Dioxide Level 31 mmol/L (21-32) Anion Gap 11 (6-14) Blood Urea Nitrogen 53 mg/dL (7-20) Creatinine 6.8 mg/dL (0.6-1.0) Estimated GFR (Cockcroft-Gault) 6.1 Glucose Level 89 mg/dL (70-99) Calcium Level 8.6 mg/dL (8.5-10.1) Total Bilirubin 0.8 mg/dL (0.2-1.0) Direct Bilirubin 0.4 mg/dL (0.0-0.2) Aspartate Amino Transf (AST/SGOT) 125 U/L (15-37) Alanine Aminotransferase (ALT/SGPT) 196 U/L (14-59) Alkaline Phosphatase 168 U/L (46-116) Total Protein 6.4 g/dL (6.4-8.2) Albumin 2.7 g/dL (3.4-5.0) Test 06/15/18 07:43 06/15/18 13:37 Glucose (Fingerstick) 96 mg/dL (70-99) 88 mg/dL (70-99) Laboratory Tests Test 06/14/18 16:44 06/14/18 21:11 06/15/18 03:40 06/15/18 07:43 Glucose (Fingerstick) 80 mg/dL (70-99) 79 mg/dL (70-99) 96 mg/dL (70-99) White Blood Count 6.7 x10^3/uL (4.0-11.0) Red Blood Count 2.43 x10^6/uL (3.50-5.40) Hemoglobin 7.1 g/dL (12.0-15.5) Hematocrit 21.7 % (36.0-47.0) Mean Corpuscular Volume 89 fL (79-100) Mean Corpuscular Hemoglobin 29 pg (25-35) Mean Corpuscular Hemoglobin Concent 33 g/dL (31-37) Red Cell Distribution Width 17.4 % (11.5-14.5) Platelet Count 219 x10^3/uL (140-400) Sodium Level 139 mmol/L (136-145) Potassium Level 5.9 mmol/L (3.5-5.1) Chloride Level 97 mmol/L (98-107) Carbon Dioxide Level 31 mmol/L (21-32) Anion Gap 11 (6-14) Blood Urea Nitrogen 53 mg/dL (7-20) Creatinine 6.8 mg/dL (0.6-1.0) Estimated GFR (Cockcroft-Gault) 6.1 Glucose Level 89 mg/dL (70-99) Calcium Level 8.6 mg/dL (8.5-10.1) Total Bilirubin 0.8 mg/dL (0.2-1.0) Direct Bilirubin 0.4 mg/dL (0.0-0.2) Aspartate Amino Transf (AST/SGOT) 125 U/L (15-37) Alanine Aminotransferase (ALT/SGPT) 196 U/L (14-59) Alkaline Phosphatase 168 U/L (46-116) Total Protein 6.4 g/dL (6.4-8.2) Albumin 2.7 g/dL (3.4-5.0) Test 06/15/18 13:37 Glucose (Fingerstick) 88 mg/dL (70-99) Medications Current Medications Morphine Sulfate (Morphine Sulfate) 5 mg 1X ONCE IV Last administered on at 09:36; Start 06/13/18 at 08:30; Stop 06/13/18 at 08:32; Status DC Ondansetron HCl (Zofran) 4 mg 1X ONCE IV Last administered on 06/13/18at 09:36 ; Start 06/13/18 at 09:00; Stop 06/13/18 at 09:01; Status DC Morphine Sulfate (Morphine Sulfate) 4 mg PRN Q2HR PRN IV PAIN Last administered on 06/13/18at 22:31; Start 06/13/18 at 11:00; Stop 06/14/18 at 10:59 ; Status DC Darbepoetin Uvaldo (Aranesp) 60 mcg WEEKLYHS SQ ; Start 06/13/18 at 21:00; Status Cancel Albuterol/ Ipratropium (Duoneb) 3 ml RTQID NEB Last administered on 06/15/18at 12:34; Start 06/13/18 at 16:00 Darbepoetin Uvaldo (Aranesp) 60 mcg WEEKLYHS SQ Last administered on 06/13/18at 22 :29; Start 06/13/18 at 21:00 Hydralazine HCl (Apresoline Inj) 10 mg PRN Q4HRS PRN IVP ELEVATED BP, SEE COMMENTS Last administered on 06/15/18at 15:38; Start 06/13/18 at 13:15 Budesonide (Pulmicort) 0.5 mg RTBID NEB Last administered on 06/15/18at 08:06; Start 06/13/18 at 20:00 Metoprolol Tartrate (Lopressor Vial) 5 mg Q6HRS IVP Last administered on at 13:53; Start 06/13/18 at 18:00 Insulin Human Lispro (HumaLOG) 0-12 UNITS QIDACHS SQ ; Start 06/13/18 at 16:30 Sodium Chloride 1,000 ml @ 1,000 mls/hr Q1H PRN IV hypotension; Start 06/13/18 at 16:21; Stop 06/13/18 at 22:20; Status DC Sodium Chloride 1,000 ml @ 400 mls/hr Q2H30M PRN IV PATENCY; Start 06/13/18 at 16:21; Stop 06/14/18 at 04:20; Status DC Info (PHARMACY MONITORING -- do not chart) 1 each PRN DAILY PRN MC SEE COMMENTS ; Start 06/13/18 at 16:30 Dextrose (Dextrose 50%-Water Syringe) 12.5 gm PRN Q15MIN PRN IV SEE COMMENTS Last administered on 06/14/18at 07:53; Start 06/14/18 at 07:45 Amino Acids/ Glycerin/ Electrolytes 1,000 ml @ 80 mls/hr [id number] IV Last administered on 06/15/18at 02:17; Start 06/14/18 at 12:00 Fentanyl Citrate (Fentanyl 2ml Vial) 50 mcg PRN Q2HR PRN IV PAIN Last administered on 06/14/18at 22:30; Start 06/14/18 at 13:15 Throat Lozenges (Chloraseptic) 1 spray PRN Q2HR PRN PO SORE THROAT; Start 06/14 at 16:15 Sodium Chloride 1,000 ml @ 1,000 mls/hr Q1H PRN IV hypotension; Start 06/15/18 at 07:53; Stop 06/15/18 at 13:52; Status DC Albumin Human 200 ml @ 200 mls/hr 1X PRN PRN IV Hypotension; Start 06/15/18 at 08:00; Stop 06/15/18 at 13:59; Status DC Acetaminophen (Tylenol) 500 mg 1X PRN PRN PO MILD PAIN / TEMP; Start 06/15/18 at 08:00; Stop 06/16/18 at 07:59 Diphenhydramine HCl (Benadryl) 25 mg 1X PRN PRN IV ITCHING; Start 06/15/18 at 08:00; Stop 06/16/18 at 07:59 Diphenhydramine HCl (Benadryl) 25 mg 1X PRN PRN IV ITCHING; Start 06/15/18 at 08:00; Stop 06/16/18 at 07:59 Sodium Chloride 1,000 ml @ 400 mls/hr Q2H30M PRN IV PATENCY; Start 06/15/18 at 07:53; Stop 06/15/18 at 19:52 Info (PHARMACY MONITORING -- do not chart) 1 each PRN DAILY PRN MC SEE COMMENTS ; Start 06/15/18 at 08:00 Active Scripts Active [Darbepoetin Uvaldo In Polysorbat] 60 MCG/0.3 ML Disp.syrin 60 Mcg SQ WEEKLYHS Duoneb 0.5-3(2.5) Mg/3 Ml (Albuterol/Ipratropium) 3 Ml Ampul.neb 3 Ml NEB Q6HRS 30 Days Nephro-Deborah Rx Tablet (Vit B Cmplx 3/Fa/Vit C/Biotin) 1 Each Tablet 1 Each PO DAILY 90 Days Metoprolol Tartrate 50 Mg Tablet 50 Mg PO BID 30 Days Reported Calcium Acetate 667 Mg Tablet 667 Mg PO TIDWMEALS Furosemide 40 Mg Tablet 40 Mg PO BID Lisinopril 20 Mg Tablet 20 Mg PO DAILY Sodium Bicarbonate 650 Mg Tablet 10 Mg PO TID Amlodipine Besylate 10 Mg Tablet 10 Mg PO DAILY Tums (Calcium Carbonate) 300 Mg Tab.chew 300 Mg PO BIDAC Novolog (Insulin Aspart) 100 Unit/1 Ml Cartridge 5 Unit SQ TIDBFRMEAL Lantus Solostar (Insulin Glargine,Hum.rec.anlog) 100 Unit/1 Ml Insuln.pen 10 Unit SQ BID Lipitor (Atorvastatin Calcium) 40 Mg Tablet 40 Mg PO HS Vitals/I & O Vital Sign - Last 24 Hours 06/14/18 06/14/18 06/14/18 06/14/18 18:01 19:57 19:59 20:03 Pulse 82 B/P (MAP) 180/60 Pulse Ox 98 O2 Delivery Nasal Cannula Nasal Cannula Nasal Cannula O2 Flow Rate 2.0 2.0 06/14/18 06/14/18 06/14/18 06/14/18 20:08 20:30 20:32 22:30 Temp 98.9 98.9 Pulse 98 98 Resp 17 18 B/P (MAP) 209/69 209/69 (115) Pulse Ox 98 98 O2 Delivery Nasal Cannula Nasal Cannula Room Air O2 Flow Rate 2.0 2.0 06/14/18 06/14/18 06/14/18 06/14/18 23:11 23:14 23:20 23:59 Temp 98.9 98.9 98.9 98.9 Pulse 105 105 105 Resp 20 20 20 B/P (MAP) 178/57 178/57 (97) 128/57 (80) Pulse Ox 97 97 O2 Delivery Nasal Cannula Nasal Cannula Nasal Cannula O2 Flow Rate 2.0 2.0 2.0 06/15/18 06/15/18 06/15/18 06/15/18 03:59 04:13 05:34 05:39 Temp 98.5 98.5 Pulse 96 95 95 Resp 20 B/P (MAP) 177/61 (99) 177/61 208/83 (124) 208/83 Pulse Ox 97 O2 Delivery Nasal Cannula O2 Flow Rate 2.0 06/15/18 06/15/18 06/15/18 06/15/18 06:30 07:00 08:00 08:07 Temp 98.3 98.3 Pulse 83 86 Resp 18 B/P (MAP) 189/67 (107) 191/72 (111) Pulse Ox 97 97 O2 Delivery Nasal Cannula Nasal Cannula Nasal Cannula O2 Flow Rate 2.0 2.0 2.0 06/15/18 06/15/18 06/15/18 06/15/18 08:16 08:26 13:48 13:53 Pulse 86 109 109 Resp 18 B/P (MAP) 205/69 (114) 205/69 184/75 (111) 184/75 Pulse Ox 99 O2 Delivery Room Air 06/15/18 15:38 Pulse 102 B/P (MAP) 198/76 Intake and Output 06/14/18 06/14/18 06/15/18 14:59 22:59 06:59 Intake Total 0 ml 0 ml Output Total 300 ml 0 ml 300 ml Balance -300 ml 0 ml -300 ml NATE JAQUEZ MD Jun 15, 2018 15:42
--- NOTE | 2018-06-15 15:52 | NUR ---
This nurse paged MD with BP, no orders received, will continue to monitor.
--- NOTE | 2018-06-15 17:20 | NUR ---
This nurse called MD about BP, orders received, this nurse will continue to monitor. Addendum: 06/15/18 at 1820 by EVELYNE FIELDS RN Orders were to give patient Lopressor now, recheck BP after 1 hour, if still elevated give Hydralazine, this nurse will continue to monitor.
[2018-06-16] VITALS (7 sets, daily range): BP systolic 138–189; BP diastolic 63–85
[2018-06-16 03:58] LABS: HEMATOCRIT 23.3 % (36.0-47.0); HEMOGLOBIN 7.5 g/dL (12.0-15.5); RED BLOOD COUNT 2.6 x10^6/uL (3.50-5.40); RED CELL DISTRIBUTION WIDTH 17.5 % (11.5-14.5); WHITE BLOOD COUNT 6.3 x10^3/uL (4.0-11.0)
[2018-06-16 04:35] LABS: ALBUMIN 2.9 g/dL (3.4-5.0); ALBUMIN/GLOBULIN RATIO 0.6 (1.0-1.7); GFR 8.7; POTASSIUM 5.1 mmol/L (3.5-5.1); TOTAL BILIRUBIN 0.6 mg/dL (0.2-1.0); TOTAL PROTEIN 7.4 g/dL (6.4-8.2)
[2018-06-16] MEDS: METOPROLOL TARTRATE 5 MG/5 ML VIAL. IVP SCH ×3 (06:09→18:02)
[2018-06-16] MEDS: INSULIN LISPRO 300 UNITS/3 ML INSULN.PEN. SQ SCH ×4 (07:30→21:00)
[2018-06-16] MEDS: IPRATRPIUM/ALBUTEROL 0.5/2.5MG 3 ML NEBU. NEB SCH ×4 (08:01→20:07)
[2018-06-16] MEDS: BUDESONIDE 0.5 MG/2 ML NEBU. NEB SCH ×2 (08:01→20:07)
[2018-06-16] MEDS: hydrALAZINE 20 MG/ML VIAL. IVP PRN ×2 (08:32→20:30)
--- NOTE | 2018-06-16 09:13 | PDOC ---
SUBJECTIVE Subjective Pt states that she is feeling better. Has not had any abdominal pain since yesterday. She did pass some gas yesterday. Denies nausea and vomiting OBJECTIVE Vital Signs Vital Signs Date Time Temp Pulse Resp B/P (MAP) Pulse Ox O2 Delivery O2 Flow Rate FiO2 06/16/18 08:32 83 188/72 06/16/18 08:04 98 Room Air 06/16/18 08:03 98 Room Air 06/16/18 07:00 98.5 83 16 188/72 (110) 93 Room Air 98.5 06/16/18 06:09 95 159/63 06/16/18 03:44 98.5 95 20 159/63 (95) 93 Room Air 98.5 06/15/18 23:46 104 147/60 06/15/18 22:25 99.3 104 21 147/58 (87) 95 Room Air 99.3 06/15/18 20:30 Room Air 06/15/18 19:59 99.0 102 21 158/62 (94) 94 Room Air 99.0 06/15/18 18:27 101 176/73 06/15/18 18:14 101 176/73 (107) 06/15/18 17:24 110 181/66 (104) 06/15/18 17:15 110 181/66 06/15/18 16:13 94 Room Air 06/15/18 15:38 102 198/76 06/15/18 15:00 99.2 102 18 198/76 (116) 92 Nasal Cannula 2.0 99.2 06/15/18 13:53 109 184/75 06/15/18 13:48 109 18 184/75 (111) 99 Room Air I & O Intake and Output 06/16/18 06:59 Intake Total 600 ml Output Total 140 ml Balance 460 ml Intake Oral 0 ml IV Total 600 ml Output Urine Total 0 ml Gastric Drainage Total 140 ml PHYSICAL EXAM Physical Exam GEN: NAD, AOx3 HEENT: MMM, EOMI, no scleral icterus/injection Cardiac: RRR, no M/R/G Lungs: CTAB Ab: soft, non distended, NTTP Ext: no erythema/edema LE bilaterally Nuero: CN2-12 GI ASSESSMENT/PLAN Assessment/Plan Pt is a 63yo female admitted with SBO 1. Small-bowel obstruction- Surgery following. Currently with NG. + flatus yesterday. 2. End-stage renal disease- on HD. Renal following. Electrolytes improved after HD 3. Chronic anemia- acute on chronic. Hb increased to 7.5 this morning. Currently receiving Aranesp 4. Type 2 diabetes- HbA1C pending, BS currently controlled 5. Transaminitis- with ductal dilatation. GI following. Liver enzymes improved this morning, CTM 6. PEM- severe 7. Pleural effusions 8. HTN- had improved with HD yesterday but have had difficulties keeping controlled even with IV medications. Will start Clonidine patch today COMMENT Lab Laboratory Tests Test 06/15/18 13:37 06/15/18 17:06 06/15/18 20:42 06/16/18 02:45 Glucose (Fingerstick) 88 mg/dL (70-99) 96 mg/dL (70-99) 105 mg/dL (70-99) White Blood Count 6.3 x10^3/uL (4.0-11.0) Red Blood Count 2.60 x10^6/uL (3.50-5.40) Hemoglobin 7.5 g/dL (12.0-15.5) Hematocrit 23.3 % (36.0-47.0) Mean Corpuscular Volume 90 fL (79-100) Mean Corpuscular Hemoglobin 29 pg (25-35) Mean Corpuscular Hemoglobin Concent 32 g/dL (31-37) Red Cell Distribution Width 17.5 % (11.5-14.5) Platelet Count 231 x10^3/uL (140-400) Sodium Level 136 mmol/L (136-145) Potassium Level 5.1 mmol/L (3.5-5.1) Chloride Level 96 mmol/L (98-107) Carbon Dioxide Level 31 mmol/L (21-32) Anion Gap 9 (6-14) Blood Urea Nitrogen 41 mg/dL (7-20) Creatinine 5.0 mg/dL (0.6-1.0) Estimated GFR (Cockcroft-Gault) 8.7 BUN/Creatinine Ratio 8 (6-20) Glucose Level 114 mg/dL (70-99) Calcium Level 9.0 mg/dL (8.5-10.1) Total Bilirubin 0.6 mg/dL (0.2-1.0) Aspartate Amino Transf (AST/SGOT) 52 U/L (15-37) Alanine Aminotransferase (ALT/SGPT) 129 U/L (14-59) Alkaline Phosphatase 139 U/L (46-116) Total Protein 7.4 g/dL (6.4-8.2) Albumin 2.9 g/dL (3.4-5.0) Albumin/Globulin Ratio 0.6 (1.0-1.7) Test 06/16/18 07:49 Glucose (Fingerstick) 103 mg/dL (70-99) CHERRY WILKINSON MD Jun 16, 2018 09:13
[2018-06-16] MEDS ORDERED: cloNIDine TTS-1 1 PATCH PATCH.TDWK TD SCH (10:00)
--- NOTE | 2018-06-16 11:08 | PDOC ---
G I PROGRESS NOTE Reason for Follow-up SBO/VH, abnormal LFT's Subjective Less pain. Small flatus x 2. No stool as yet. Objective NG output still a bit generous. Physical Exam Lungs clear. RRR Abdomen soft, mildly tender. Occasional bowel sounds. Review of Relevant I have reviewed the following items jeremiah (where applicable) has been applied. Labs Laboratory Tests Test 06/14/18 11:55 06/14/18 16:44 06/14/18 21:11 06/15/18 03:40 Glucose (Fingerstick) 70 mg/dL (70-99) 80 mg/dL (70-99) 79 mg/dL (70-99) White Blood Count 6.7 x10^3/uL (4.0-11.0) Red Blood Count 2.43 x10^6/uL (3.50-5.40) Hemoglobin 7.1 g/dL (12.0-15.5) Hematocrit 21.7 % (36.0-47.0) Mean Corpuscular Volume 89 fL (79-100) Mean Corpuscular Hemoglobin 29 pg (25-35) Mean Corpuscular Hemoglobin Concent 33 g/dL (31-37) Red Cell Distribution Width 17.4 % (11.5-14.5) Platelet Count 219 x10^3/uL (140-400) Sodium Level 139 mmol/L (136-145) Potassium Level 5.9 mmol/L (3.5-5.1) Chloride Level 97 mmol/L (98-107) Carbon Dioxide Level 31 mmol/L (21-32) Anion Gap 11 (6-14) Blood Urea Nitrogen 53 mg/dL (7-20) Creatinine 6.8 mg/dL (0.6-1.0) Estimated GFR (Cockcroft-Gault) 6.1 Glucose Level 89 mg/dL (70-99) Calcium Level 8.6 mg/dL (8.5-10.1) Total Bilirubin 0.8 mg/dL (0.2-1.0) Direct Bilirubin 0.4 mg/dL (0.0-0.2) Aspartate Amino Transf (AST/SGOT) 125 U/L (15-37) Alanine Aminotransferase (ALT/SGPT) 196 U/L (14-59) Alkaline Phosphatase 168 U/L (46-116) Total Protein 6.4 g/dL (6.4-8.2) Albumin 2.7 g/dL (3.4-5.0) Test 06/15/18 07:43 06/15/18 13:37 06/15/18 17:06 06/15/18 20:42 Glucose (Fingerstick) 96 mg/dL (70-99) 88 mg/dL (70-99) 96 mg/dL (70-99) 105 mg/dL (70-99) Test 06/16/18 02:45 06/16/18 07:49 White Blood Count 6.3 x10^3/uL (4.0-11.0) Red Blood Count 2.60 x10^6/uL (3.50-5.40) Hemoglobin 7.5 g/dL (12.0-15.5) Hematocrit 23.3 % (36.0-47.0) Mean Corpuscular Volume 90 fL (79-100) Mean Corpuscular Hemoglobin 29 pg (25-35) Mean Corpuscular Hemoglobin Concent 32 g/dL (31-37) Red Cell Distribution Width 17.5 % (11.5-14.5) Platelet Count 231 x10^3/uL (140-400) Sodium Level 136 mmol/L (136-145) Potassium Level 5.1 mmol/L (3.5-5.1) Chloride Level 96 mmol/L (98-107) Carbon Dioxide Level 31 mmol/L (21-32) Anion Gap 9 (6-14) Blood Urea Nitrogen 41 mg/dL (7-20) Creatinine 5.0 mg/dL (0.6-1.0) Estimated GFR (Cockcroft-Gault) 8.7 BUN/Creatinine Ratio 8 (6-20) Glucose Level 114 mg/dL (70-99) Calcium Level 9.0 mg/dL (8.5-10.1) Total Bilirubin 0.6 mg/dL (0.2-1.0) Aspartate Amino Transf (AST/SGOT) 52 U/L (15-37) Alanine Aminotransferase (ALT/SGPT) 129 U/L (14-59) Alkaline Phosphatase 139 U/L (46-116) Total Protein 7.4 g/dL (6.4-8.2) Albumin 2.9 g/dL (3.4-5.0) Albumin/Globulin Ratio 0.6 (1.0-1.7) Glucose (Fingerstick) 103 mg/dL (70-99) Laboratory Tests Test 06/15/18 13:37 06/15/18 17:06 06/15/18 20:42 06/16/18 02:45 Glucose (Fingerstick) 88 mg/dL (70-99) 96 mg/dL (70-99) 105 mg/dL (70-99) White Blood Count 6.3 x10^3/uL (4.0-11.0) Red Blood Count 2.60 x10^6/uL (3.50-5.40) Hemoglobin 7.5 g/dL (12.0-15.5) Hematocrit 23.3 % (36.0-47.0) Mean Corpuscular Volume 90 fL (79-100) Mean Corpuscular Hemoglobin 29 pg (25-35) Mean Corpuscular Hemoglobin Concent 32 g/dL (31-37) Red Cell Distribution Width 17.5 % (11.5-14.5) Platelet Count 231 x10^3/uL (140-400) Sodium Level 136 mmol/L (136-145) Potassium Level 5.1 mmol/L (3.5-5.1) Chloride Level 96 mmol/L (98-107) Carbon Dioxide Level 31 mmol/L (21-32) Anion Gap 9 (6-14) Blood Urea Nitrogen 41 mg/dL (7-20) Creatinine 5.0 mg/dL (0.6-1.0) Estimated GFR (Cockcroft-Gault) 8.7 BUN/Creatinine Ratio 8 (6-20) Glucose Level 114 mg/dL (70-99) Calcium Level 9.0 mg/dL (8.5-10.1) Total Bilirubin 0.6 mg/dL (0.2-1.0) Aspartate Amino Transf (AST/SGOT) 52 U/L (15-37) Alanine Aminotransferase (ALT/SGPT) 129 U/L (14-59) Alkaline Phosphatase 139 U/L (46-116) Total Protein 7.4 g/dL (6.4-8.2) Albumin 2.9 g/dL (3.4-5.0) Albumin/Globulin Ratio 0.6 (1.0-1.7) Test 06/16/18 07:49 Glucose (Fingerstick) 103 mg/dL (70-99) Vitals/I & O Vital Sign - Last 24 Hours 06/15/18 06/15/18 06/15/18 06/15/18 13:48 13:53 15:00 15:38 Temp 99.2 99.2 Pulse 109 109 102 102 Resp 18 18 B/P (MAP) 184/75 (111) 184/75 198/76 (116) 198/76 Pulse Ox 99 92 O2 Delivery Room Air Nasal Cannula O2 Flow Rate 2.0 06/15/18 06/15/18 06/15/18 06/15/18 16:13 17:15 17:24 18:14 Pulse 110 110 101 B/P (MAP) 181/66 181/66 (104) 176/73 (107) Pulse Ox 94 O2 Delivery Room Air 06/15/18 06/15/18 06/15/18 06/15/18 18:27 19:59 20:30 22:25 Temp 99.0 99.3 99.0 99.3 Pulse 101 102 104 Resp 21 21 B/P (MAP) 176/73 158/62 (94) 147/58 (87) Pulse Ox 94 95 O2 Delivery Room Air Room Air Room Air 06/15/18 06/16/18 06/16/18 06/16/18 23:46 03:44 06:09 07:00 Temp 98.5 98.5 98.5 98.5 Pulse 104 95 95 83 Resp 20 16 B/P (MAP) 147/60 159/63 (95) 159/63 188/72 (110) Pulse Ox 93 93 O2 Delivery Room Air Room Air 06/16/18 06/16/18 06/16/18 06/16/18 08:00 08:03 08:04 08:32 Pulse 83 B/P (MAP) 188/72 Pulse Ox 98 98 O2 Delivery Room Air Room Air Room Air 06/16/18 10:52 Temp 98.5 98.5 Pulse 94 Resp 16 B/P (MAP) 138/85 (102) Pulse Ox 95 O2 Delivery Room Air Intake and Output 06/15/18 06/15/18 06/16/18 14:59 22:59 06:59 Intake Total 600 ml Output Total 140 ml 0 ml Balance -140 ml 600 ml Problem List Problems Medical Problems: (1) Hyperkalemia Status: Acute (2) Small bowel obstruction Status: Acute Assessment SBO from VH; improving, not clinically resolved as yet. LFT's continue to improve. Plan of Care Note Continue suction. NATE LUCIANO MD Jun 16, 2018 11:08
--- NOTE | 2018-06-16 12:59 | PDOC ---
PROGRESS NOTES Subjective Subjective seems better, passed gas twice, not much pain Objective Objective Vital Signs Date Time Temp Pulse Resp B/P (MAP) Pulse Ox O2 Delivery O2 Flow Rate FiO2 06/16/18 11:40 Room Air 06/16/18 10:52 98.5 94 16 138/85 (102) 95 98.5 06/15/18 15:00 2.0 Intake and Output 06/16/18 07:00 Intake Total 600 ml Output Total 140 ml Balance 460 ml Intake Oral 0 ml IV Total 600 ml Output Urine Total 0 ml Gastric Drainage Total 140 ml Physical Exam Abdomen: Soft (minimal tenderness mid lower abdomen, a bit improved) Heart: Regular rate, Normal S2 Extremities: No cyanosis General: Alert, Oriented X3, Cooperative Assessment Assessment Problems Medical Problems: (1) Hyperkalemia Status: Acute (2) Small bowel obstruction Status: Acute Plan Plan of Care Some clinical improvement, passed gas; will recheck films Comment Review of Relevant I have reviewed the following items jeremiah (where applicable) has been applied. Labs Laboratory Tests Test 06/14/18 16:44 06/14/18 21:11 06/15/18 03:40 06/15/18 07:43 Glucose (Fingerstick) 80 mg/dL (70-99) 79 mg/dL (70-99) 96 mg/dL (70-99) White Blood Count 6.7 x10^3/uL (4.0-11.0) Red Blood Count 2.43 x10^6/uL (3.50-5.40) Hemoglobin 7.1 g/dL (12.0-15.5) Hematocrit 21.7 % (36.0-47.0) Mean Corpuscular Volume 89 fL (79-100) Mean Corpuscular Hemoglobin 29 pg (25-35) Mean Corpuscular Hemoglobin Concent 33 g/dL (31-37) Red Cell Distribution Width 17.4 % (11.5-14.5) Platelet Count 219 x10^3/uL (140-400) Sodium Level 139 mmol/L (136-145) Potassium Level 5.9 mmol/L (3.5-5.1) Chloride Level 97 mmol/L (98-107) Carbon Dioxide Level 31 mmol/L (21-32) Anion Gap 11 (6-14) Blood Urea Nitrogen 53 mg/dL (7-20) Creatinine 6.8 mg/dL (0.6-1.0) Estimated GFR (Cockcroft-Gault) 6.1 Glucose Level 89 mg/dL (70-99) Calcium Level 8.6 mg/dL (8.5-10.1) Total Bilirubin 0.8 mg/dL (0.2-1.0) Direct Bilirubin 0.4 mg/dL (0.0-0.2) Aspartate Amino Transf (AST/SGOT) 125 U/L (15-37) Alanine Aminotransferase (ALT/SGPT) 196 U/L (14-59) Alkaline Phosphatase 168 U/L (46-116) Total Protein 6.4 g/dL (6.4-8.2) Albumin 2.7 g/dL (3.4-5.0) Test 06/15/18 13:37 06/15/18 17:06 06/15/18 20:42 06/16/18 02:45 Glucose (Fingerstick) 88 mg/dL (70-99) 96 mg/dL (70-99) 105 mg/dL (70-99) White Blood Count 6.3 x10^3/uL (4.0-11.0) Red Blood Count 2.60 x10^6/uL (3.50-5.40) Hemoglobin 7.5 g/dL (12.0-15.5) Hematocrit 23.3 % (36.0-47.0) Mean Corpuscular Volume 90 fL (79-100) Mean Corpuscular Hemoglobin 29 pg (25-35) Mean Corpuscular Hemoglobin Concent 32 g/dL (31-37) Red Cell Distribution Width 17.5 % (11.5-14.5) Platelet Count 231 x10^3/uL (140-400) Sodium Level 136 mmol/L (136-145) Potassium Level 5.1 mmol/L (3.5-5.1) Chloride Level 96 mmol/L (98-107) Carbon Dioxide Level 31 mmol/L (21-32) Anion Gap 9 (6-14) Blood Urea Nitrogen 41 mg/dL (7-20) Creatinine 5.0 mg/dL (0.6-1.0) Estimated GFR (Cockcroft-Gault) 8.7 BUN/Creatinine Ratio 8 (6-20) Glucose Level 114 mg/dL (70-99) Calcium Level 9.0 mg/dL (8.5-10.1) Total Bilirubin 0.6 mg/dL (0.2-1.0) Aspartate Amino Transf (AST/SGOT) 52 U/L (15-37) Alanine Aminotransferase (ALT/SGPT) 129 U/L (14-59) Alkaline Phosphatase 139 U/L (46-116) Total Protein 7.4 g/dL (6.4-8.2) Albumin 2.9 g/dL (3.4-5.0) Albumin/Globulin Ratio 0.6 (1.0-1.7) Test 06/16/18 07:49 06/16/18 11:41 Glucose (Fingerstick) 103 mg/dL (70-99) 117 mg/dL (70-99) Laboratory Tests Test 06/15/18 13:37 06/15/18 17:06 06/15/18 20:42 06/16/18 02:45 Glucose (Fingerstick) 88 mg/dL (70-99) 96 mg/dL (70-99) 105 mg/dL (70-99) White Blood Count 6.3 x10^3/uL (4.0-11.0) Red Blood Count 2.60 x10^6/uL (3.50-5.40) Hemoglobin 7.5 g/dL (12.0-15.5) Hematocrit 23.3 % (36.0-47.0) Mean Corpuscular Volume 90 fL (79-100) Mean Corpuscular Hemoglobin 29 pg (25-35) Mean Corpuscular Hemoglobin Concent 32 g/dL (31-37) Red Cell Distribution Width 17.5 % (11.5-14.5) Platelet Count 231 x10^3/uL (140-400) Sodium Level 136 mmol/L (136-145) Potassium Level 5.1 mmol/L (3.5-5.1) Chloride Level 96 mmol/L (98-107) Carbon Dioxide Level 31 mmol/L (21-32) Anion Gap 9 (6-14) Blood Urea Nitrogen 41 mg/dL (7-20) Creatinine 5.0 mg/dL (0.6-1.0) Estimated GFR (Cockcroft-Gault) 8.7 BUN/Creatinine Ratio 8 (6-20) Glucose Level 114 mg/dL (70-99) Calcium Level 9.0 mg/dL (8.5-10.1) Total Bilirubin 0.6 mg/dL (0.2-1.0) Aspartate Amino Transf (AST/SGOT) 52 U/L (15-37) Alanine Aminotransferase (ALT/SGPT) 129 U/L (14-59) Alkaline Phosphatase 139 U/L (46-116) Total Protein 7.4 g/dL (6.4-8.2) Albumin 2.9 g/dL (3.4-5.0) Albumin/Globulin Ratio 0.6 (1.0-1.7) Test 06/16/18 07:49 06/16/18 11:41 Glucose (Fingerstick) 103 mg/dL (70-99) 117 mg/dL (70-99) Medications Current Medications Morphine Sulfate (Morphine Sulfate) 5 mg 1X ONCE IV Last administered on 09:36; Start 06/13/18 at 08:30; Stop 06/13/18 at 08:32; Status DC Ondansetron HCl (Zofran) 4 mg 1X ONCE IV Last administered on 06/13/18at 09:36 ; Start 06/13/18 at 09:00; Stop 06/13/18 at 09:01; Status DC Morphine Sulfate (Morphine Sulfate) 4 mg PRN Q2HR PRN IV PAIN Last administered on 06/13/18at 22:31; Start 06/13/18 at 11:00; Stop 06/14/18 at 10:59 ; Status DC Darbepoetin Uvaldo (Aranesp) 60 mcg WEEKLYHS SQ ; Start 06/13/18 at 21:00; Status Cancel Albuterol/ Ipratropium (Duoneb) 3 ml RTQID NEB Last administered on 06/16/18at 11:39; Start 06/13/18 at 16:00 Darbepoetin Uvaldo (Aranesp) 60 mcg WEEKLYHS SQ Last administered on 06/13/18at 22 :29; Start 06/13/18 at 21:00 Hydralazine HCl (Apresoline Inj) 10 mg PRN Q4HRS PRN IVP ELEVATED BP, SEE COMMENTS Last administered on 06/16/18at 08:32; Start 06/13/18 at 13:15 Budesonide (Pulmicort) 0.5 mg RTBID NEB Last administered on 06/16/18at 08:01; Start 06/13/18 at 20:00 Metoprolol Tartrate (Lopressor Vial) 5 mg Q6HRS IVP Last administered on at 06:09; Start 06/13/18 at 18:00 Insulin Human Lispro (HumaLOG) 0-12 UNITS QIDACHS SQ ; Start 06/13/18 at 16:30 Sodium Chloride 1,000 ml @ 1,000 mls/hr Q1H PRN IV hypotension; Start 06/13/18 at 16:21; Stop 06/13/18 at 22:20; Status DC Sodium Chloride 1,000 ml @ 400 mls/hr Q2H30M PRN IV PATENCY; Start 06/13/18 at 16:21; Stop 06/14/18 at 04:20; Status DC Info (PHARMACY MONITORING -- do not chart) 1 each PRN DAILY PRN MC SEE COMMENTS ; Start 06/13/18 at 16:30; Stop 06/15/18 at 16:58; Status DC Dextrose (Dextrose 50%-Water Syringe) 12.5 gm PRN Q15MIN PRN IV SEE COMMENTS Last administered on 06/14/18at 07:53; Start 06/14/18 at 07:45 Amino Acids/ Glycerin/ Electrolytes 1,000 ml @ 80 mls/hr [id number] IV Last administered on 06/15/18at 21:15; Start 06/14/18 at 12:00 Fentanyl Citrate (Fentanyl 2ml Vial) 50 mcg PRN Q2HR PRN IV PAIN Last administered on 06/14/18at 22:30; Start 06/14/18 at 13:15 Throat Lozenges (Chloraseptic) 1 spray PRN Q2HR PRN PO SORE THROAT; Start 06/14 at 16:15 Sodium Chloride 1,000 ml @ 1,000 mls/hr Q1H PRN IV hypotension; Start 06/15/18 at 07:53; Stop 06/15/18 at 13:52; Status DC Albumin Human 200 ml @ 200 mls/hr 1X PRN PRN IV Hypotension; Start 06/15/18 at 08:00; Stop 06/15/18 at 13:59; Status DC Acetaminophen (Tylenol) 500 mg 1X PRN PRN PO MILD PAIN / TEMP; Start 06/15/18 at 08:00; Stop 06/16/18 at 07:59; Status DC Diphenhydramine HCl (Benadryl) 25 mg 1X PRN PRN IV ITCHING; Start 06/15/18 at 08:00; Stop 06/16/18 at 07:59; Status DC Diphenhydramine HCl (Benadryl) 25 mg 1X PRN PRN IV ITCHING; Start 06/15/18 at 08:00; Stop 06/16/18 at 07:59; Status DC Sodium Chloride 1,000 ml @ 400 mls/hr Q2H30M PRN IV PATENCY; Start 06/15/18 at 07:53; Stop 06/15/18 at 19:52; Status DC Info (PHARMACY MONITORING -- do not chart) 1 each PRN DAILY PRN MC SEE COMMENTS ; Start 06/15/18 at 08:00 Clonidine HCl (Catapres Tts-1) 1 patch Cooney TD Last administered on 06/16/18at 10: 35; Start 06/16/18 at 10:00 Active Scripts Active [Darbepoetin Uvaldo In Polysorbat] 60 MCG/0.3 ML Disp.syrin 60 Mcg SQ WEEKLYHS Duoneb 0.5-3(2.5) Mg/3 Ml (Albuterol/Ipratropium) 3 Ml Ampul.neb 3 Ml NEB Q6HRS 30 Days Nephro-Deborah Rx Tablet (Vit B Cmplx 3/Fa/Vit C/Biotin) 1 Each Tablet 1 Each PO DAILY 90 Days Metoprolol Tartrate 50 Mg Tablet 50 Mg PO BID 30 Days Reported Calcium Acetate 667 Mg Tablet 667 Mg PO TIDWMEALS Furosemide 40 Mg Tablet 40 Mg PO BID Lisinopril 20 Mg Tablet 20 Mg PO DAILY Sodium Bicarbonate 650 Mg Tablet 10 Mg PO TID Amlodipine Besylate 10 Mg Tablet 10 Mg PO DAILY Tums (Calcium Carbonate) 300 Mg Tab.chew 300 Mg PO BIDAC Novolog (Insulin Aspart) 100 Unit/1 Ml Cartridge 5 Unit SQ TIDBFRMEAL Lantus Solostar (Insulin Glargine,Hum.rec.anlog) 100 Unit/1 Ml Insuln.pen 10 Unit SQ BID Lipitor (Atorvastatin Calcium) 40 Mg Tablet 40 Mg PO HS Vitals/I & O Vital Sign - Last 24 Hours 06/15/18 06/15/18 06/15/18 06/15/18 13:48 13:53 15:00 15:38 Temp 99.2 99.2 Pulse 109 109 102 102 Resp 18 18 B/P (MAP) 184/75 (111) 184/75 198/76 (116) 198/76 Pulse Ox 99 92 O2 Delivery Room Air Nasal Cannula O2 Flow Rate 2.0 06/15/18 06/15/18 06/15/18 06/15/18 16:13 17:15 17:24 18:14 Pulse 110 110 101 B/P (MAP) 181/66 181/66 (104) 176/73 (107) Pulse Ox 94 O2 Delivery Room Air 06/15/18 06/15/18 06/15/18 06/15/18 18:27 19:59 20:30 22:25 Temp 99.0 99.3 99.0 99.3 Pulse 101 102 104 Resp 21 21 B/P (MAP) 176/73 158/62 (94) 147/58 (87) Pulse Ox 94 95 O2 Delivery Room Air Room Air Room Air 06/15/18 06/16/18 06/16/18 06/16/18 23:46 03:44 06:09 07:00 Temp 98.5 98.5 98.5 98.5 Pulse 104 95 95 83 Resp 20 16 B/P (MAP) 147/60 159/63 (95) 159/63 188/72 (110) Pulse Ox 93 93 O2 Delivery Room Air Room Air 06/16/18 06/16/18 06/16/18 06/16/18 08:00 08:03 08:04 08:32 Pulse 83 B/P (MAP) 188/72 Pulse Ox 98 98 O2 Delivery Room Air Room Air Room Air 06/16/18 06/16/18 10:52 11:40 Temp 98.5 98.5 Pulse 94 Resp 16 B/P (MAP) 138/85 (102) Pulse Ox 95 O2 Delivery Room Air Room Air Intake and Output 06/15/18 06/15/18 06/16/18 15:00 23:00 07:00 Intake Total 600 ml Output Total 140 ml 0 ml Balance -140 ml 600 ml JOSE XIE MD Jun 16, 2018 12:59
[2018-06-16] MEDS: AMINO AC 3%/ELECTROLYTE/GLYCER 1,000 ML IV SCH (14:43)
[2018-06-17] VITALS (7 sets, daily range): BP systolic 145–182; BP diastolic 53–70
[2018-06-17] MEDS: METOPROLOL TARTRATE 5 MG/5 ML VIAL. IVP SCH ×4 (00:12→18:21)
[2018-06-17 01:07] LABS: HEMOGLOBIN A1C 5.5 % (4.8-5.6)
[2018-06-17 05:39] LABS: ALBUMIN 2.9 g/dL (3.4-5.0); ALBUMIN/GLOBULIN RATIO 0.7 (1.0-1.7); CALCIUM 9.2 mg/dL (8.5-10.1); CREATININE 7.1 mg/dL (0.6-1.0); GFR 5.8; TOTAL BILIRUBIN 0.5 mg/dL (0.2-1.0); TOTAL PROTEIN 7.2 g/dL (6.4-8.2)
[2018-06-17 05:41] LABS: POTASSIUM 5.4 mmol/L (3.5-5.1)
[2018-06-17] MEDS: AMINO AC 3%/ELECTROLYTE/GLYCER 1,000 ML IV SCH ×2 (07:40→09:08)
[2018-06-17] MEDS: INSULIN LISPRO 300 UNITS/3 ML INSULN.PEN. SQ SCH ×4 (07:47→21:00)
--- NOTE | 2018-06-17 08:19 | PDOC ---
SURGICAL PROGRESS NOTE Subjective No pain some flatus Vital Signs Vital Signs Date Time Temp Pulse Resp B/P (MAP) Pulse Ox O2 Delivery O2 Flow Rate FiO2 06/17/18 07:00 97.9 84 18 159/59 (92) 96 Room Air 97.9 I&O Intake and Output 06/17/18 06:59 Intake Total 0 ml Output Total 2200 ml Balance -2200 ml Intake Oral 0 ml Gastric Drainage Total 2200 ml # Voids 1 General: Alert, Oriented X3, Cooperative, No acute distress HEENT: Other (ng brownish) Abdomen: Soft, No tenderness Labs Laboratory Tests Test 06/15/18 13:37 06/15/18 17:06 06/15/18 20:42 06/16/18 02:45 Glucose (Fingerstick) 88 mg/dL (70-99) 96 mg/dL (70-99) 105 mg/dL (70-99) White Blood Count 6.3 x10^3/uL (4.0-11.0) Red Blood Count 2.60 x10^6/uL (3.50-5.40) Hemoglobin 7.5 g/dL (12.0-15.5) Hematocrit 23.3 % (36.0-47.0) Mean Corpuscular Volume 90 fL (79-100) Mean Corpuscular Hemoglobin 29 pg (25-35) Mean Corpuscular Hemoglobin Concent 32 g/dL (31-37) Red Cell Distribution Width 17.5 % (11.5-14.5) Platelet Count 231 x10^3/uL (140-400) Sodium Level 136 mmol/L (136-145) Potassium Level 5.1 mmol/L (3.5-5.1) Chloride Level 96 mmol/L (98-107) Carbon Dioxide Level 31 mmol/L (21-32) Anion Gap 9 (6-14) Blood Urea Nitrogen 41 mg/dL (7-20) Creatinine 5.0 mg/dL (0.6-1.0) Estimated GFR (Cockcroft-Gault) 8.7 BUN/Creatinine Ratio 8 (6-20) Glucose Level 114 mg/dL (70-99) Calcium Level 9.0 mg/dL (8.5-10.1) Total Bilirubin 0.6 mg/dL (0.2-1.0) Aspartate Amino Transf (AST/SGOT) 52 U/L (15-37) Alanine Aminotransferase (ALT/SGPT) 129 U/L (14-59) Alkaline Phosphatase 139 U/L (46-116) Total Protein 7.4 g/dL (6.4-8.2) Albumin 2.9 g/dL (3.4-5.0) Albumin/Globulin Ratio 0.6 (1.0-1.7) Test 06/16/18 07:49 06/16/18 11:41 06/16/18 16:42 06/16/18 20:58 Glucose (Fingerstick) 103 mg/dL (70-99) 117 mg/dL (70-99) 93 mg/dL (70-99) 96 mg/dL (70-99) Test 06/17/18 03:35 06/17/18 07:22 Hemoglobin 7.3 g/dL (12.0-15.5) Sodium Level 139 mmol/L (136-145) Potassium Level 5.4 mmol/L (3.5-5.1) Chloride Level 97 mmol/L (98-107) Carbon Dioxide Level 32 mmol/L (21-32) Anion Gap 10 (6-14) Blood Urea Nitrogen 72 mg/dL (7-20) Creatinine 7.1 mg/dL (0.6-1.0) Estimated GFR (Cockcroft-Gault) 5.8 BUN/Creatinine Ratio 10 (6-20) Glucose Level 96 mg/dL (70-99) Calcium Level 9.2 mg/dL (8.5-10.1) Total Bilirubin 0.5 mg/dL (0.2-1.0) Aspartate Amino Transf (AST/SGOT) 26 U/L (15-37) Alanine Aminotransferase (ALT/SGPT) 86 U/L (14-59) Alkaline Phosphatase 117 U/L (46-116) Total Protein 7.2 g/dL (6.4-8.2) Albumin 2.9 g/dL (3.4-5.0) Albumin/Globulin Ratio 0.7 (1.0-1.7) Glucose (Fingerstick) 91 mg/dL (70-99) Laboratory Tests Test 06/16/18 11:41 06/16/18 16:42 06/16/18 20:58 06/17/18 03:35 Glucose (Fingerstick) 117 mg/dL (70-99) 93 mg/dL (70-99) 96 mg/dL (70-99) Hemoglobin 7.3 g/dL (12.0-15.5) Sodium Level 139 mmol/L (136-145) Potassium Level 5.4 mmol/L (3.5-5.1) Chloride Level 97 mmol/L (98-107) Carbon Dioxide Level 32 mmol/L (21-32) Anion Gap 10 (6-14) Blood Urea Nitrogen 72 mg/dL (7-20) Creatinine 7.1 mg/dL (0.6-1.0) Estimated GFR (Cockcroft-Gault) 5.8 BUN/Creatinine Ratio 10 (6-20) Glucose Level 96 mg/dL (70-99) Calcium Level 9.2 mg/dL (8.5-10.1) Total Bilirubin 0.5 mg/dL (0.2-1.0) Aspartate Amino Transf (AST/SGOT) 26 U/L (15-37) Alanine Aminotransferase (ALT/SGPT) 86 U/L (14-59) Alkaline Phosphatase 117 U/L (46-116) Total Protein 7.2 g/dL (6.4-8.2) Albumin 2.9 g/dL (3.4-5.0) Albumin/Globulin Ratio 0.7 (1.0-1.7) Test 06/17/18 07:22 Glucose (Fingerstick) 91 mg/dL (70-99) Problem List Problems Medical Problems: (1) Hyperkalemia Status: Acute (2) Small bowel obstruction Status: Acute Assessment/Plan xrays today pending [employer] Jun 17, 2018 08:19
--- NOTE | 2018-06-17 09:11 | RAD ---
2 view abdominal series and portable AP upright chest x-ray dated June 17, 2018 Clinical indications: small bowel obstruction. Follow-up study. COMPARISON: June 13, 2018. FINDINGS: No obstructive bowel pattern is seen. No air-fluid levels or free intraperitoneal air is seen. NG tube tip is seen within the mid body of the stomach. Cholecystectomy clips are evident. Chest x-ray is compared to a prior study dated March 05, 2018. Chronic interstitial lung disease and/or chronic bronchitis is again evident and is unchanged. No new lung infiltrate or pleural effusion or pneumothorax is seen. The heart size and pulmonary vasculature and mediastinum and both patrick are stable. Left subclavian vascular stent is now evident. IMPRESSION: No new radiographic abnormality. Electronically signed by: Darius Jimenez MD (06/17/2018 9:08 AM) [facility]
[2018-06-17] MEDS: IPRATRPIUM/ALBUTEROL 0.5/2.5MG 3 ML NEBU. NEB SCH ×4 (09:17→19:35)
[2018-06-17] MEDS: BUDESONIDE 0.5 MG/2 ML NEBU. NEB SCH ×2 (09:18→19:35)
--- NOTE | 2018-06-17 10:28 | PDOC ---
Subjective: Subjective: Denies pain, says passing gas but no stool. Objective: Objective: Reviewed chart. On PPN. Vital Signs: Vital Signs Date Time Temp Pulse Resp B/P (MAP) Pulse Ox O2 Delivery O2 Flow Rate FiO2 06/17/18 09:18 94 Room Air 06/17/18 07:00 97.9 84 18 159/59 (92) 97.9 Labs: Laboratory Tests Test 06/16/18 11:41 06/16/18 16:42 06/16/18 20:58 06/17/18 03:35 Glucose (Fingerstick) 117 mg/dL 93 mg/dL 96 mg/dL Hemoglobin 7.3 g/dL Sodium Level 139 mmol/L Potassium Level 5.4 mmol/L Chloride Level 97 mmol/L Carbon Dioxide Level 32 mmol/L Anion Gap 10 Blood Urea Nitrogen 72 mg/dL Creatinine 7.1 mg/dL Estimated GFR (Cockcroft-Gault) 5.8 BUN/Creatinine Ratio 10 Glucose Level 96 mg/dL Calcium Level 9.2 mg/dL Total Bilirubin 0.5 mg/dL Aspartate Amino Transf (AST/SGOT) 26 U/L Alanine Aminotransferase (ALT/SGPT) 86 U/L Alkaline Phosphatase 117 U/L Total Protein 7.2 g/dL Albumin 2.9 g/dL Albumin/Globulin Ratio 0.7 Test 06/17/18 07:22 Glucose (Fingerstick) 91 mg/dL Imaging: Acute Abd Series 06/17 FINDINGS: No obstructive bowel pattern is seen. No air-fluid levels or free intraperitoneal air is seen. NG tube tip is seen within the mid body of the stomach. Cholecystectomy clips are evident. Chest x-ray is compared to a prior study dated March 05, 2018. Chronic interstitial lung disease and/or chronic bronchitis is again evident and is unchanged. No new lung infiltrate or pleural effusion or pneumothorax is seen. The heart size and pulmonary vasculature and mediastinum and both patrick are stable. Left subclavian vascular stent is now evident. IMPRESSION: No new radiographic abnormality. Abd US/Doppler 06/14 IMPRESSION: 1. Hepatomegaly. 2. Intrahepatic biliary ductal dilatation and common bile duct dilatation. This can be seen with reservoir effect status post closed segment. ERCP or MRCP can be performed if there is concern for an occult obstructing etiology. 3. Right renal atrophy. 4. Normal Doppler evaluation of the upper abdomen. PE: GEN: NAD, up to chair HEENT: NG canister ~650 dark brown LUNGS: CTAB HEART: RRR ABD: soft, non-tender NEURO/PSYCH: A & O 3 A/P: SBO, VIH Elevated LFTs - still improving ACD (stable), ESRD -- Plans to clamp NGT, observe w/ this. MARILIN BARR Jun 17, 2018 10:28
[2018-06-17] MEDS ORDERED: LIDOCAINE WITH 8.4% SOD BICARB 3 ML DISP.SYRIN. ONE (10:42)
--- NOTE | 2018-06-17 11:10 | NUR ---
NG tube clamped per orders. Pt inform of POC, educated on ss, pt is aware that she needs to report nausea, pain, or vomiting so ng tube can be turn back on to suction. Pt verbalized understanding.
--- NOTE | 2018-06-17 11:27 | PDOC ---
PROGRESS NOTES Subjective Subjective Patient feeling better. Patient has not had BM or passed gas. Positive bowel sounds have been noted. NG tube still in place. KUB improved Objective Objective Vital Signs Date Time Temp Pulse Resp B/P (MAP) Pulse Ox O2 Delivery O2 Flow Rate FiO2 06/17/18 09:18 94 Room Air 06/17/18 07:00 97.9 84 18 159/59 (92) 97.9 06/15/18 15:00 2.0 Intake and Output 06/17/18 06:59 Intake Total 0 ml Output Total 2200 ml Balance -2200 ml Intake Oral 0 ml Gastric Drainage Total 2200 ml # Voids 1 Physical Exam Abdomen: Normal bowel sounds Heart: Regular rate Extremities: No edema General: Alert Lungs: Clear to auscultation Assessment Assessment Problems Medical Problems: (1) Hyperkalemia Status: Acute (2) Small bowel obstruction Status: Acute 1. Small-bowel obstruction. 2. End-stage renal disease, on dialysis. 3. Chronic anemia with admitting hemoglobin of 7.7. 4. Type 2 diabetes. Plan Plan of Care Possible Clamp NG and advance diet per surgery recc Continue surgical management. Continue dialysis treatment. Comment Review of Relevant I have reviewed the following items jeremiah (where applicable) has been applied. Labs Laboratory Tests Test 06/15/18 13:37 06/15/18 17:06 06/15/18 20:42 06/16/18 02:45 Glucose (Fingerstick) 88 mg/dL (70-99) 96 mg/dL (70-99) 105 mg/dL (70-99) White Blood Count 6.3 x10^3/uL (4.0-11.0) Red Blood Count 2.60 x10^6/uL (3.50-5.40) Hemoglobin 7.5 g/dL (12.0-15.5) Hematocrit 23.3 % (36.0-47.0) Mean Corpuscular Volume 90 fL (79-100) Mean Corpuscular Hemoglobin 29 pg (25-35) Mean Corpuscular Hemoglobin Concent 32 g/dL (31-37) Red Cell Distribution Width 17.5 % (11.5-14.5) Platelet Count 231 x10^3/uL (140-400) Sodium Level 136 mmol/L (136-145) Potassium Level 5.1 mmol/L (3.5-5.1) Chloride Level 96 mmol/L (98-107) Carbon Dioxide Level 31 mmol/L (21-32) Anion Gap 9 (6-14) Blood Urea Nitrogen 41 mg/dL (7-20) Creatinine 5.0 mg/dL (0.6-1.0) Estimated GFR (Cockcroft-Gault) 8.7 BUN/Creatinine Ratio 8 (6-20) Glucose Level 114 mg/dL (70-99) Calcium Level 9.0 mg/dL (8.5-10.1) Total Bilirubin 0.6 mg/dL (0.2-1.0) Aspartate Amino Transf (AST/SGOT) 52 U/L (15-37) Alanine Aminotransferase (ALT/SGPT) 129 U/L (14-59) Alkaline Phosphatase 139 U/L (46-116) Total Protein 7.4 g/dL (6.4-8.2) Albumin 2.9 g/dL (3.4-5.0) Albumin/Globulin Ratio 0.6 (1.0-1.7) Test 06/16/18 07:49 06/16/18 11:41 06/16/18 16:42 06/16/18 20:58 Glucose (Fingerstick) 103 mg/dL (70-99) 117 mg/dL (70-99) 93 mg/dL (70-99) 96 mg/dL (70-99) Test 06/17/18 03:35 06/17/18 07:22 Hemoglobin 7.3 g/dL (12.0-15.5) Sodium Level 139 mmol/L (136-145) Potassium Level 5.4 mmol/L (3.5-5.1) Chloride Level 97 mmol/L (98-107) Carbon Dioxide Level 32 mmol/L (21-32) Anion Gap 10 (6-14) Blood Urea Nitrogen 72 mg/dL (7-20) Creatinine 7.1 mg/dL (0.6-1.0) Estimated GFR (Cockcroft-Gault) 5.8 BUN/Creatinine Ratio 10 (6-20) Glucose Level 96 mg/dL (70-99) Calcium Level 9.2 mg/dL (8.5-10.1) Total Bilirubin 0.5 mg/dL (0.2-1.0) Aspartate Amino Transf (AST/SGOT) 26 U/L (15-37) Alanine Aminotransferase (ALT/SGPT) 86 U/L (14-59) Alkaline Phosphatase 117 U/L (46-116) Total Protein 7.2 g/dL (6.4-8.2) Albumin 2.9 g/dL (3.4-5.0) Albumin/Globulin Ratio 0.7 (1.0-1.7) Glucose (Fingerstick) 91 mg/dL (70-99) Laboratory Tests Test 06/16/18 11:41 06/16/18 16:42 06/16/18 20:58 06/17/18 03:35 Glucose (Fingerstick) 117 mg/dL (70-99) 93 mg/dL (70-99) 96 mg/dL (70-99) Hemoglobin 7.3 g/dL (12.0-15.5) Sodium Level 139 mmol/L (136-145) Potassium Level 5.4 mmol/L (3.5-5.1) Chloride Level 97 mmol/L (98-107) Carbon Dioxide Level 32 mmol/L (21-32) Anion Gap 10 (6-14) Blood Urea Nitrogen 72 mg/dL (7-20) Creatinine 7.1 mg/dL (0.6-1.0) Estimated GFR (Cockcroft-Gault) 5.8 BUN/Creatinine Ratio 10 (6-20) Glucose Level 96 mg/dL (70-99) Calcium Level 9.2 mg/dL (8.5-10.1) Total Bilirubin 0.5 mg/dL (0.2-1.0) Aspartate Amino Transf (AST/SGOT) 26 U/L (15-37) Alanine Aminotransferase (ALT/SGPT) 86 U/L (14-59) Alkaline Phosphatase 117 U/L (46-116) Total Protein 7.2 g/dL (6.4-8.2) Albumin 2.9 g/dL (3.4-5.0) Albumin/Globulin Ratio 0.7 (1.0-1.7) Test 06/17/18 07:22 Glucose (Fingerstick) 91 mg/dL (70-99) Medications Current Medications Morphine Sulfate (Morphine Sulfate) 5 mg 1X ONCE IV Last administered on at 09:36; Start 06/13/18 at 08:30; Stop 06/13/18 at 08:32; Status DC Ondansetron HCl (Zofran) 4 mg 1X ONCE IV Last administered on 06/13/18at 09:36 ; Start 06/13/18 at 09:00; Stop 06/13/18 at 09:01; Status DC Morphine Sulfate (Morphine Sulfate) 4 mg PRN Q2HR PRN IV PAIN Last administered on 06/13/18at 22:31; Start 06/13/18 at 11:00; Stop 06/14/18 at 10:59 ; Status DC Darbepoetin Uvaldo (Aranesp) 60 mcg WEEKLYHS SQ ; Start 06/13/18 at 21:00; Status Cancel Albuterol/ Ipratropium (Duoneb) 3 ml RTQID NEB Last administered on 06/17/18at 09 :17; Start 06/13/18 at 16:00 Darbepoetin Uvaldo (Aranesp) 60 mcg WEEKLYHS SQ Last administered on 06/13/18at 22 :29; Start 06/13/18 at 21:00 Hydralazine HCl (Apresoline Inj) 10 mg PRN Q4HRS PRN IVP ELEVATED BP, SEE COMMENTS Last administered on 06/16/18at 20:30; Start 06/13/18 at 13:15 Budesonide (Pulmicort) 0.5 mg RTBID NEB Last administered on 06/17/18at 09:18; Start 06/13/18 at 20:00 Metoprolol Tartrate (Lopressor Vial) 5 mg Q6HRS IVP Last administered on at 06:14; Start 06/13/18 at 18:00 Insulin Human Lispro (HumaLOG) 0-12 UNITS QIDACHS SQ ; Start 06/13/18 at 16:30 Sodium Chloride 1,000 ml @ 1,000 mls/hr Q1H PRN IV hypotension; Start 06/13/18 at 16:21; Stop 06/13/18 at 22:20; Status DC Sodium Chloride 1,000 ml @ 400 mls/hr Q2H30M PRN IV PATENCY; Start 06/13/18 at 16:21; Stop 06/14/18 at 04:20; Status DC Info (PHARMACY MONITORING -- do not chart) 1 each PRN DAILY PRN MC SEE COMMENTS ; Start 06/13/18 at 16:30; Stop 06/15/18 at 16:58; Status DC Dextrose (Dextrose 50%-Water Syringe) 12.5 gm PRN Q15MIN PRN IV SEE COMMENTS Last administered on 06/14/18at 07:53; Start 06/14/18 at 07:45 Amino Acids/ Glycerin/ Electrolytes 1,000 ml @ 80 mls/hr [id number] IV Last administered on 06/17/18at 09:08; Start 06/14/18 at 12:00 Fentanyl Citrate (Fentanyl 2ml Vial) 50 mcg PRN Q2HR PRN IV PAIN Last administered on 06/14/18at 22:30; Start 06/14/18 at 13:15 Throat Lozenges (Chloraseptic) 1 spray PRN Q2HR PRN PO SORE THROAT; Start 06/14 at 16:15 Sodium Chloride 1,000 ml @ 1,000 mls/hr Q1H PRN IV hypotension; Start 06/15/18 at 07:53; Stop 06/15/18 at 13:52; Status DC Albumin Human 200 ml @ 200 mls/hr 1X PRN PRN IV Hypotension; Start 06/15/18 at 08:00; Stop 06/15/18 at 13:59; Status DC Acetaminophen (Tylenol) 500 mg 1X PRN PRN PO MILD PAIN / TEMP; Start 06/15/18 at 08:00; Stop 06/16/18 at 07:59; Status DC Diphenhydramine HCl (Benadryl) 25 mg 1X PRN PRN IV ITCHING; Start 06/15/18 at 08:00; Stop 06/16/18 at 07:59; Status DC Diphenhydramine HCl (Benadryl) 25 mg 1X PRN PRN IV ITCHING; Start 06/15/18 at 08:00; Stop 06/16/18 at 07:59; Status DC Sodium Chloride 1,000 ml @ 400 mls/hr Q2H30M PRN IV PATENCY; Start 06/15/18 at 07:53; Stop 06/15/18 at 19:52; Status DC Info (PHARMACY MONITORING -- do not chart) 1 each PRN DAILY PRN MC SEE COMMENTS ; Start 06/15/18 at 08:00 Clonidine HCl (Catapres Tts-1) 1 patch Cooney TD Last administered on 06/16/18at 10: 35; Start 06/16/18 at 10:00 Lidocaine/Sodium Bicarbonate (Buffered Lidocaine 1%) 3 ml STK-MED ONCE .ROUTE ; Start 06/17/18 at 10:42; Stop 06/17/18 at 10:43; Status DC Lidocaine/Sodium Bicarbonate (Buffered Lidocaine 1%) 6 ml 1X ONCE INJ ; Start 06/17/18 at 11:30; Stop 06/17/18 at 11:31 Active Scripts Active [Darbepoetin Uvaldo In Polysorbat] 60 MCG/0.3 ML Disp.syrin 60 Mcg SQ WEEKLYHS Duoneb 0.5-3(2.5) Mg/3 Ml (Albuterol/Ipratropium) 3 Ml Ampul.neb 3 Ml NEB Q6HRS 30 Days Nephro-Deborah Rx Tablet (Vit B Cmplx 3/Fa/Vit C/Biotin) 1 Each Tablet 1 Each PO DAILY 90 Days Metoprolol Tartrate 50 Mg Tablet 50 Mg PO BID 30 Days Reported Calcium Acetate 667 Mg Tablet 667 Mg PO TIDWMEALS Furosemide 40 Mg Tablet 40 Mg PO BID Lisinopril 20 Mg Tablet 20 Mg PO DAILY Sodium Bicarbonate 650 Mg Tablet 10 Mg PO TID Amlodipine Besylate 10 Mg Tablet 10 Mg PO DAILY Tums (Calcium Carbonate) 300 Mg Tab.chew 300 Mg PO BIDAC Novolog (Insulin Aspart) 100 Unit/1 Ml Cartridge 5 Unit SQ TIDBFRMEAL Lantus Solostar (Insulin Glargine,Hum.rec.anlog) 100 Unit/1 Ml Insuln.pen 10 Unit SQ BID Lipitor (Atorvastatin Calcium) 40 Mg Tablet 40 Mg PO HS Vitals/I & O Vital Sign - Last 24 Hours 06/16/18 06/16/18 06/16/18 06/16/18 11:40 15:35 16:07 18:00 Temp 98.5 98.5 Pulse 96 101 Resp 16 B/P (MAP) 175/69 (104) 189/67 (107) Pulse Ox 99 O2 Delivery Room Air Room Air Room Air 06/16/18 06/16/18 06/16/18 06/16/18 18:02 19:00 20:08 20:09 Temp 98.5 98.5 Pulse 101 100 Resp 18 B/P (MAP) 189/67 178/79 (112) Pulse Ox 99 97 97 O2 Delivery Room Air Room Air Room Air 06/16/18 06/16/18 06/16/18 06/17/18 20:15 20:30 22:59 00:12 Temp 98.0 98.0 Pulse 100 99 99 Resp 18 B/P (MAP) 178/79 181/65 (103) 160/62 Pulse Ox 96 O2 Delivery Room Air Room Air 06/17/18 06/17/18 06/17/18 06/17/18 03:00 05:55 06:14 07:00 Temp 98.1 97.9 98.1 97.9 Pulse 89 87 87 84 Resp 18 18 B/P (MAP) 167/62 (97) 182/69 (106) 182/69 159/59 (92) Pulse Ox 94 96 O2 Delivery Room Air Room Air 06/17/18 09:18 Pulse Ox 94 O2 Delivery Room Air Intake and Output 06/16/18 06/16/18 06/17/18 14:59 22:59 06:59 Intake Total 0 ml Output Total 450 ml 150 ml 1600 ml Balance -450 ml -150 ml -1600 ml NATE ED MD Jun 17, 2018 11:27
[2018-06-17] MEDS ORDERED: LIDOCAINE WITH 8.4% SOD BICARB 3 ML DISP.SYRIN. INJ ONE (11:30)
--- NOTE | 2018-06-17 11:31 | NUR ---
SW following. Discussed with RN, pt is from home with family. Pt currently has an NG tube, PPN. Pt has dialysis T, , . SW will continue to follow for any discharge planning needs.
[2018-06-17] MEDS ORDERED: IOHEXOL 240 MG/ML 50ML VIAL. ONE (11:35)
[2018-06-17] MEDS ORDERED: HEPARIN PF 500 UNIT/5 ML DISP.SYRIN. IV ONE (11:44)
[2018-06-17] MEDS ORDERED: CONTRAST GIVEN. MC PRN (11:45)
[2018-06-17] MEDS ORDERED: IOHEXOL 240 MG/ML 50ML VIAL. IJ ONE (12:15)
--- NOTE | 2018-06-17 14:17 | PDOC ---
Renal-Progress Notes Subjective Notes Notes FEELING BETTER History of Present Illness Hx of present illness STABLE Vitals Vitals Vital Signs Date Time Temp Pulse Resp B/P (MAP) Pulse Ox O2 Delivery O2 Flow Rate FiO2 06/17/18 12:38 96 177/70 06/17/18 12:35 98.4 16 97 Room Air 98.4 Weight Weight [ ] I.O. Intake and Output Intake and Output 06/17/18 07:00 Intake Total 0 ml Output Total 2200 ml Balance -2200 ml Intake Oral 0 ml Gastric Drainage Total 2200 ml # Voids 1 Labs Labs Laboratory Tests Test 06/16/18 16:42 06/16/18 20:58 06/17/18 03:35 06/17/18 07:22 Glucose (Fingerstick) 93 mg/dL (70-99) 96 mg/dL (70-99) 91 mg/dL (70-99) Hemoglobin 7.3 g/dL (12.0-15.5) Sodium Level 139 mmol/L (136-145) Potassium Level 5.4 mmol/L (3.5-5.1) Chloride Level 97 mmol/L (98-107) Carbon Dioxide Level 32 mmol/L (21-32) Anion Gap 10 (6-14) Blood Urea Nitrogen 72 mg/dL (7-20) Creatinine 7.1 mg/dL (0.6-1.0) Estimated GFR (Cockcroft-Gault) 5.8 BUN/Creatinine Ratio 10 (6-20) Glucose Level 96 mg/dL (70-99) Calcium Level 9.2 mg/dL (8.5-10.1) Total Bilirubin 0.5 mg/dL (0.2-1.0) Aspartate Amino Transf (AST/SGOT) 26 U/L (15-37) Alanine Aminotransferase (ALT/SGPT) 86 U/L (14-59) Alkaline Phosphatase 117 U/L (46-116) Total Protein 7.2 g/dL (6.4-8.2) Albumin 2.9 g/dL (3.4-5.0) Albumin/Globulin Ratio 0.7 (1.0-1.7) Test 06/17/18 12:30 Glucose (Fingerstick) 104 mg/dL (70-99) Physical Exam Musculoskeletal: Osteoarthritis Assessment Assessment IMP HYPERKALEMIA-RESOLVED ANEMIA ESRD-TTS DM II HTN SBO-SYMPTOMS ARE BETTER PLAN SURGICAL EVAL AND TX HD TOMORROW PPN FOR NOW CYNDEE CORREA MD Jun 17, 2018 14:17
[2018-06-17] MEDS: hydrALAZINE 20 MG/ML VIAL. IVP PRN ×2 (16:13→20:34)
[2018-06-18] MEDS: METOPROLOL TARTRATE 5 MG/5 ML VIAL. IVP SCH ×4 (00:53→18:21)
[2018-06-18 03:00] VITALS: BP 161/59
[2018-06-18] MEDS: hydrALAZINE 20 MG/ML VIAL. IVP PRN ×2 (03:05→21:27)
[2018-06-18] MEDS: AMINO AC 3%/ELECTROLYTE/GLYCER 1,000 ML IV SCH ×2 (03:05→16:00)
[2018-06-18 06:07] LABS: RED BLOOD COUNT 2.35 x10^6/uL (3.50-5.40); RED CELL DISTRIBUTION WIDTH 17.7 % (11.5-14.5)
[2018-06-18 06:16] LABS: HEMATOCRIT 20.9 % (36.0-47.0); HEMOGLOBIN 6.8 g/dL (12.0-15.5)
--- NOTE | 2018-06-18 06:25 | NUR ---
Critical hgb 6.8, hct 20.9. No active bleeding. Dr. King holder. No orders placed. Will continue to monitor.
[2018-06-18 06:47] LABS: CALCIUM 8.7 mg/dL (8.5-10.1); CREATININE 8.7 mg/dL (0.6-1.0); GFR 4.6
[2018-06-18 06:48] LABS: POTASSIUM 6.4 mmol/L (3.5-5.1)
[2018-06-18] MEDS ORDERED: IV NORMAL SALINE 1000ML BAG 1,000 ML IV PRN ×2 (07:22)
[2018-06-18] MEDS: IPRATRPIUM/ALBUTEROL 0.5/2.5MG 3 ML NEBU. NEB SCH ×4 (07:23→19:29)
[2018-06-18] MEDS: BUDESONIDE 0.5 MG/2 ML NEBU. NEB SCH ×2 (07:24→19:29)
[2018-06-18] MEDS ORDERED: 0.9 % SODIUM CHLORIDE 10 ML DISP.SYRIN. IV PRN ×2 (07:30)
[2018-06-18] MEDS: INSULIN LISPRO 300 UNITS/3 ML INSULN.PEN. SQ SCH ×4 (07:30→21:00)
[2018-06-18] MEDS ORDERED: DIALYSIS PATIENT. MC PRN ×2 (07:30)
[2018-06-18] MEDS ORDERED: ALBUMIN HUMAN 25% 200 ML IV PRN (07:30)
[2018-06-18 07:48] VITALS: BP 164/54
--- NOTE | 2018-06-18 08:45 | RAD ---
Procedure: Ultrasound and fluoroscopically guided placement of tunnel central venous catheter. 06/18/2018 8:38 AM Clinical Indication: TPN/POWERLINE PLACEMENT Fluoroscopy time: 5.5 minutes Dose area product: 8.0 Gycm2 Consent: The procedure was explained in its entirety to the patient or the patients designated patient portal representative by a member of the treatment team, including a discussion of the risks, benefits and commonly accepted alternatives to the procedure, as well as the expected consequences of no therapy whatsoever. Discussion of the risks included, but was not limited to, those that are most frequent and those that are rare but possibly severe or life-threatening, as well as the possibility of unforeseen complications. Sterility: All elements of maximal sterile barrier technique including the use of a cap, mask, sterile gown, sterile gloves, large sterile sheet, appropriate hand hygiene, and 2% chlorhexidine for cutaneous antisepsis (or acceptable alternative antiseptic per current guidelines) were followed for this procedure. Technique and Findings: Following informed consent, the patient was prepped and draped in the usual sterile fashion. Ultrasound interrogation of the right neck revealed small caliber right internal jugular vein with associated scarring. A 21-gauge micropuncture was then used to gain access to this vein under ultrasound guidance. A hard copy ultrasound image was recorded. The needle was exchanged over a wire for a sheath. Contrast evaluation was necessary to negotiate a guidewire into the IVC. A small incision was made several centimeters inferior to the right clavicle. A power line was trimmed to length, advanced from the small skin incision to the venotomy site, and then advanced through a peel-away sheath to the level of the cavoatrial junction. Catheter was found to flush and aspirate normally. Catheter was secured in place with 2-0 Prolene suture and a sterile dressing was applied. Catheter was packed with heparin per protocol. The neck dermatotomy was closed with Dermabond. No immediate complications were identified. Impression: Successful ultrasound and fluoroscopically guided placement of a right internal jugular tunneled central venous catheter
--- NOTE | 2018-06-18 10:40 | PDOC ---
MARSHALL QUIROS AMORTIZATION CLERK 06/18/18 1040: SURGICAL PROGRESS NOTE Subjective + flatus no emesis tolerated NG clamping no pain Vital Signs Vital Signs Date Time Temp Pulse Resp B/P (MAP) Pulse Ox O2 Delivery O2 Flow Rate FiO2 06/18/18 07:48 98.4 78 18 164/54 (90) 97 Room Air 98.4 I&O Intake and Output 06/18/18 07:00 Intake Total 685 ml Output Total 50 ml Balance 635 ml IV Total 685 ml Drainage Total 50 ml # Voids 2 General: Alert, Oriented X3, Cooperative, No acute distress Abdomen: Soft, No tenderness Labs Laboratory Tests Test 06/16/18 11:41 06/16/18 16:42 06/16/18 20:58 06/17/18 03:35 Glucose (Fingerstick) 117 mg/dL (70-99) 93 mg/dL (70-99) 96 mg/dL (70-99) Hemoglobin 7.3 g/dL (12.0-15.5) Sodium Level 139 mmol/L (136-145) Potassium Level 5.4 mmol/L (3.5-5.1) Chloride Level 97 mmol/L (98-107) Carbon Dioxide Level 32 mmol/L (21-32) Anion Gap 10 (6-14) Blood Urea Nitrogen 72 mg/dL (7-20) Creatinine 7.1 mg/dL (0.6-1.0) Estimated GFR (Cockcroft-Gault) 5.8 BUN/Creatinine Ratio 10 (6-20) Glucose Level 96 mg/dL (70-99) Calcium Level 9.2 mg/dL (8.5-10.1) Total Bilirubin 0.5 mg/dL (0.2-1.0) Aspartate Amino Transf (AST/SGOT) 26 U/L (15-37) Alanine Aminotransferase (ALT/SGPT) 86 U/L (14-59) Alkaline Phosphatase 117 U/L (46-116) Total Protein 7.2 g/dL (6.4-8.2) Albumin 2.9 g/dL (3.4-5.0) Albumin/Globulin Ratio 0.7 (1.0-1.7) Test 06/17/18 07:22 06/17/18 12:30 06/17/18 16:51 06/17/18 20:59 Glucose (Fingerstick) 91 mg/dL (70-99) 104 mg/dL (70-99) 107 mg/dL (70-99) 118 mg/dL (70-99) Test 06/18/18 05:50 06/18/18 07:20 White Blood Count 5.0 x10^3/uL (4.0-11.0) Red Blood Count 2.35 x10^6/uL (3.50-5.40) Hemoglobin 6.8 g/dL (12.0-15.5) Hematocrit 20.9 % (36.0-47.0) Mean Corpuscular Volume 89 fL (79-100) Mean Corpuscular Hemoglobin 29 pg (25-35) Mean Corpuscular Hemoglobin Concent 33 g/dL (31-37) Red Cell Distribution Width 17.7 % (11.5-14.5) Platelet Count 209 x10^3/uL (140-400) Sodium Level 137 mmol/L (136-145) Potassium Level 6.4 mmol/L (3.5-5.1) Chloride Level 93 mmol/L (98-107) Carbon Dioxide Level 31 mmol/L (21-32) Anion Gap 13 (6-14) Blood Urea Nitrogen 97 mg/dL (7-20) Creatinine 8.7 mg/dL (0.6-1.0) Estimated GFR (Cockcroft-Gault) 4.6 Glucose Level 109 mg/dL (70-99) Calcium Level 8.7 mg/dL (8.5-10.1) Glucose (Fingerstick) 107 mg/dL (70-99) Laboratory Tests Test 06/17/18 12:30 06/17/18 16:51 06/17/18 20:59 06/18/18 05:50 Glucose (Fingerstick) 104 mg/dL (70-99) 107 mg/dL (70-99) 118 mg/dL (70-99) White Blood Count 5.0 x10^3/uL (4.0-11.0) Red Blood Count 2.35 x10^6/uL (3.50-5.40) Hemoglobin 6.8 g/dL (12.0-15.5) Hematocrit 20.9 % (36.0-47.0) Mean Corpuscular Volume 89 fL (79-100) Mean Corpuscular Hemoglobin 29 pg (25-35) Mean Corpuscular Hemoglobin Concent 33 g/dL (31-37) Red Cell Distribution Width 17.7 % (11.5-14.5) Platelet Count 209 x10^3/uL (140-400) Sodium Level 137 mmol/L (136-145) Potassium Level 6.4 mmol/L (3.5-5.1) Chloride Level 93 mmol/L (98-107) Carbon Dioxide Level 31 mmol/L (21-32) Anion Gap 13 (6-14) Blood Urea Nitrogen 97 mg/dL (7-20) Creatinine 8.7 mg/dL (0.6-1.0) Estimated GFR (Cockcroft-Gault) 4.6 Glucose Level 109 mg/dL (70-99) Calcium Level 8.7 mg/dL (8.5-10.1) Test 06/18/18 07:20 Glucose (Fingerstick) 107 mg/dL (70-99) Problem List Problems Medical Problems: (1) Hyperkalemia Status: Acute (2) Small bowel obstruction Status: Acute Assessment/Plan appears improved if low residual dc and start clears KARAN VO MD 06/18/18 1340: SURGICAL PROGRESS NOTE Assessment/Plan Pt seen and examined. Agree with Diaz's note Pt doing well, about to have NGT out no pain abd soft, D/w pt and pt's family, will ADAT and try to avoid surgery, given poor candidate. MARSHALL QUIROS AMORTIZATION CLERK Jun 18, 2018 10:40 KARAN VO MD Jun 18, 2018 13:40
--- NOTE | 2018-06-18 12:12 | PDOC ---
Subjective: Subjective: Better, denies pain. Objective: Vital Signs: Vital Signs Date Time Temp Pulse Resp B/P (MAP) Pulse Ox O2 Delivery O2 Flow Rate FiO2 06/18/18 07:48 98.4 78 18 164/54 (90) 97 Room Air 98.4 Labs: Laboratory Tests Test 06/17/18 12:30 06/17/18 16:51 06/17/18 20:59 06/18/18 05:50 Glucose (Fingerstick) 104 mg/dL 107 mg/dL 118 mg/dL White Blood Count 5.0 x10^3/uL Red Blood Count 2.35 x10^6/uL Hemoglobin 6.8 g/dL Hematocrit 20.9 % Mean Corpuscular Volume 89 fL Mean Corpuscular Hemoglobin 29 pg Mean Corpuscular Hemoglobin Concent 33 g/dL Red Cell Distribution Width 17.7 % Platelet Count 209 x10^3/uL Sodium Level 137 mmol/L Potassium Level 6.4 mmol/L Chloride Level 93 mmol/L Carbon Dioxide Level 31 mmol/L Anion Gap 13 Blood Urea Nitrogen 97 mg/dL Creatinine 8.7 mg/dL Estimated GFR (Cockcroft-Gault) 4.6 Glucose Level 109 mg/dL Calcium Level 8.7 mg/dL Test 06/18/18 07:20 Glucose (Fingerstick) 107 mg/dL PE: GEN: dialyzing HEENT: NG clamped LUNGS: CTAB HEART: RRR ABD: occasional quiet BS NEURO/PSYCH: A & O 3 A/P: SBO, VIH - NG clamped Elevated LFTs - improved (checked 06/17) ACD (Hgb 6.8 this morning) ESRD, hyperkalemia -- Plans to check NG residual and possibly remove - continue per surgery. MARILIN BARR Jun 18, 2018 12:11
--- NOTE | 2018-06-18 13:12 | PDOC ---
Renal-Progress Notes Subjective Notes Notes FEELING BETTER History of Present Illness Hx of present illness STABLE Vitals Vitals Vital Signs Date Time Temp Pulse Resp B/P (MAP) Pulse Ox O2 Delivery O2 Flow Rate FiO2 06/18/18 12:06 Room Air 06/18/18 07:48 98.4 78 18 164/54 (90) 97 98.4 Weight Weight [ ] I.O. Intake and Output Intake and Output 06/18/18 07:00 Intake Total 685 ml Output Total 50 ml Balance 635 ml IV Total 685 ml Drainage Total 50 ml # Voids 2 Labs Labs Laboratory Tests Test 06/17/18 16:51 06/17/18 20:59 06/18/18 05:50 06/18/18 07:20 Glucose (Fingerstick) 107 mg/dL (70-99) 118 mg/dL (70-99) 107 mg/dL (70-99) White Blood Count 5.0 x10^3/uL (4.0-11.0) Red Blood Count 2.35 x10^6/uL (3.50-5.40) Hemoglobin 6.8 g/dL (12.0-15.5) Hematocrit 20.9 % (36.0-47.0) Mean Corpuscular Volume 89 fL (79-100) Mean Corpuscular Hemoglobin 29 pg (25-35) Mean Corpuscular Hemoglobin Concent 33 g/dL (31-37) Red Cell Distribution Width 17.7 % (11.5-14.5) Platelet Count 209 x10^3/uL (140-400) Sodium Level 137 mmol/L (136-145) Potassium Level 6.4 mmol/L (3.5-5.1) Chloride Level 93 mmol/L (98-107) Carbon Dioxide Level 31 mmol/L (21-32) Anion Gap 13 (6-14) Blood Urea Nitrogen 97 mg/dL (7-20) Creatinine 8.7 mg/dL (0.6-1.0) Estimated GFR (Cockcroft-Gault) 4.6 Glucose Level 109 mg/dL (70-99) Calcium Level 8.7 mg/dL (8.5-10.1) Review of Systems Constitutional: yes: weakness, alert, oriented Ears/Nose/Throat: Yes: no symptom reported Eyes: Yes: no symptom reported Pulmonary: Yes no symptom reported Cardiovascular: Yes no symptom reported Gastrointestional: Yes: abdominal pain Genitourinary: Yes: no symptom reported Musculoskeletal: Yes: muscle stiffness Skin: Yes no symptom reported Psychiatric/Neurological: Yes: no symptom reported Endocrine: Yes: no symptom reported Physical Exam General Appearance: no apparent distress Skin: warm Respiratory: decreased breath sounds Heart: S1S2 Abdomen: soft, bowel sounds present Genitourinary: bladder flat Extremities: pulses present Neurology: alert, oriented Assessment Assessment IMP HYPERKALEMIA-RESOLVED ANEMIA ESRD-TTS DM II HTN SBO-SYMPTOMS ARE BETTER PLAN SURGICAL EVAL AND TX HD TODAY UF TO DW PO TRIAL WHEN OK WITH SURGERY CYNDEE CORREA MD Jun 18, 2018 13:12
--- NOTE | 2018-06-18 13:30 | NUR ---
Aspirated NG tube with 50cc brown/clear gastric content removed. Gastric content returned to NG without complications. Explained removal procedure with translating. NG tube removed without complications.
[2018-06-18 13:58] VITALS: BP 145/61
--- NOTE | 2018-06-18 14:10 | NUR ---
SW following. Discussed with RN, pt still has NG and PPN, possibly removing NG and attempting clears diet today. PT/OT unable to work with pt due to critical labs. SW will continue to follow for discharge planning.
[2018-06-18] MEDS: PANTOPRAZOLE IV PUSH 40 MG VIAL. IVP SCH (14:32)
[2018-06-18 15:00] VITALS: BP 154/55
--- NOTE | 2018-06-18 16:47 | PDOC ---
PROGRESS NOTES Subjective Subjective Patient continues to improve. Now passing small amounts of gas. Still no BM. Objective Objective Vital Signs Date Time Temp Pulse Resp B/P (MAP) Pulse Ox O2 Delivery O2 Flow Rate FiO2 06/18/18 16:10 Room Air 06/18/18 15:00 98.2 85 16 154/55 (88) 99 98.2 06/15/18 15:00 2.0 Intake and Output 06/18/18 07:00 Intake Total 685 ml Output Total 50 ml Balance 635 ml IV Total 685 ml Drainage Total 50 ml # Voids 2 Physical Exam Abdomen: Other (bowel sounds present) Heart: Regular rate Extremities: No edema General: Alert Lungs: Clear to auscultation Assessment Assessment Problems Medical Problems: (1) Hyperkalemia Status: Acute (2) Small bowel obstruction Status: Acute 1. Small-bowel obstruction. 2. End-stage renal disease, on dialysis. 3. Chronic anemia with admitting hemoglobin of 7.7. 4. Type 2 diabetes. 5. Progressive anemia. Plan Plan of Care DC NG and proceed with diet trial. Continue surgical management. Continue dialysis treatment Consider transfusion if hemoglobin continues to decline. Comment Review of Relevant I have reviewed the following items jeremiah (where applicable) has been applied. Labs Laboratory Tests Test 06/16/18 20:58 06/17/18 03:35 06/17/18 07:22 06/17/18 12:30 Glucose (Fingerstick) 96 mg/dL (70-99) 91 mg/dL (70-99) 104 mg/dL (70-99) Hemoglobin 7.3 g/dL (12.0-15.5) Sodium Level 139 mmol/L (136-145) Potassium Level 5.4 mmol/L (3.5-5.1) Chloride Level 97 mmol/L (98-107) Carbon Dioxide Level 32 mmol/L (21-32) Anion Gap 10 (6-14) Blood Urea Nitrogen 72 mg/dL (7-20) Creatinine 7.1 mg/dL (0.6-1.0) Estimated GFR (Cockcroft-Gault) 5.8 BUN/Creatinine Ratio 10 (6-20) Glucose Level 96 mg/dL (70-99) Calcium Level 9.2 mg/dL (8.5-10.1) Total Bilirubin 0.5 mg/dL (0.2-1.0) Aspartate Amino Transf (AST/SGOT) 26 U/L (15-37) Alanine Aminotransferase (ALT/SGPT) 86 U/L (14-59) Alkaline Phosphatase 117 U/L (46-116) Total Protein 7.2 g/dL (6.4-8.2) Albumin 2.9 g/dL (3.4-5.0) Albumin/Globulin Ratio 0.7 (1.0-1.7) Test 06/17/18 16:51 06/17/18 20:59 06/18/18 05:50 06/18/18 07:20 Glucose (Fingerstick) 107 mg/dL (70-99) 118 mg/dL (70-99) 107 mg/dL (70-99) White Blood Count 5.0 x10^3/uL (4.0-11.0) Red Blood Count 2.35 x10^6/uL (3.50-5.40) Hemoglobin 6.8 g/dL (12.0-15.5) Hematocrit 20.9 % (36.0-47.0) Mean Corpuscular Volume 89 fL (79-100) Mean Corpuscular Hemoglobin 29 pg (25-35) Mean Corpuscular Hemoglobin Concent 33 g/dL (31-37) Red Cell Distribution Width 17.7 % (11.5-14.5) Platelet Count 209 x10^3/uL (140-400) Sodium Level 137 mmol/L (136-145) Potassium Level 6.4 mmol/L (3.5-5.1) Chloride Level 93 mmol/L (98-107) Carbon Dioxide Level 31 mmol/L (21-32) Anion Gap 13 (6-14) Blood Urea Nitrogen 97 mg/dL (7-20) Creatinine 8.7 mg/dL (0.6-1.0) Estimated GFR (Cockcroft-Gault) 4.6 Glucose Level 109 mg/dL (70-99) Calcium Level 8.7 mg/dL (8.5-10.1) Test 06/18/18 13:47 Glucose (Fingerstick) 83 mg/dL (70-99) Laboratory Tests Test 06/17/18 16:51 06/17/18 20:59 06/18/18 05:50 06/18/18 07:20 Glucose (Fingerstick) 107 mg/dL (70-99) 118 mg/dL (70-99) 107 mg/dL (70-99) White Blood Count 5.0 x10^3/uL (4.0-11.0) Red Blood Count 2.35 x10^6/uL (3.50-5.40) Hemoglobin 6.8 g/dL (12.0-15.5) Hematocrit 20.9 % (36.0-47.0) Mean Corpuscular Volume 89 fL (79-100) Mean Corpuscular Hemoglobin 29 pg (25-35) Mean Corpuscular Hemoglobin Concent 33 g/dL (31-37) Red Cell Distribution Width 17.7 % (11.5-14.5) Platelet Count 209 x10^3/uL (140-400) Sodium Level 137 mmol/L (136-145) Potassium Level 6.4 mmol/L (3.5-5.1) Chloride Level 93 mmol/L (98-107) Carbon Dioxide Level 31 mmol/L (21-32) Anion Gap 13 (6-14) Blood Urea Nitrogen 97 mg/dL (7-20) Creatinine 8.7 mg/dL (0.6-1.0) Estimated GFR (Cockcroft-Gault) 4.6 Glucose Level 109 mg/dL (70-99) Calcium Level 8.7 mg/dL (8.5-10.1) Test 06/18/18 13:47 Glucose (Fingerstick) 83 mg/dL (70-99) Medications Current Medications Morphine Sulfate (Morphine Sulfate) 5 mg 1X ONCE IV Last administered on at 09:36; Start 06/13/18 at 08:30; Stop 06/13/18 at 08:32; Status DC Ondansetron HCl (Zofran) 4 mg 1X ONCE IV Last administered on 06/13/18at 09:36 ; Start 06/13/18 at 09:00; Stop 06/13/18 at 09:01; Status DC Morphine Sulfate (Morphine Sulfate) 4 mg PRN Q2HR PRN IV PAIN Last administered on 06/13/18at 22:31; Start 06/13/18 at 11:00; Stop 06/14/18 at 10:59 ; Status DC Darbepoetin Uvaldo (Aranesp) 60 mcg WEEKLYHS SQ ; Start 06/13/18 at 21:00; Status Cancel Albuterol/ Ipratropium (Duoneb) 3 ml RTQID NEB Last administered on 06/18/18at 16 :09; Start 06/13/18 at 16:00 Darbepoetin Uvaldo (Aranesp) 60 mcg WEEKLYHS SQ Last administered on 06/13/18at 22 :29; Start 06/13/18 at 21:00 Hydralazine HCl (Apresoline Inj) 10 mg PRN Q4HRS PRN IVP ELEVATED BP, SEE COMMENTS Last administered on 06/18/18 03:05; Start 06/13/18 at 13:15 Budesonide (Pulmicort) 0.5 mg RTBID NEB Last administered on 06/18/18 07:24; Start 06/13/18 at 20:00 Metoprolol Tartrate (Lopressor Vial) 5 mg Q6HRS IVP Last administered on 14:32; Start 06/13/18 at 18:00 Insulin Human Lispro (HumaLOG) 0-12 UNITS QIDACHS SQ ; Start 06/13/18 at 16:30 Sodium Chloride 1,000 ml @ 1,000 mls/hr Q1H PRN IV hypotension; Start 06/13/18 at 16:21; Stop 06/13/18 at 22:20; Status DC Sodium Chloride 1,000 ml @ 400 mls/hr Q2H30M PRN IV PATENCY; Start 06/13/18 at 16:21; Stop 06/14/18 at 04:20; Status DC Info (PHARMACY MONITORING -- do not chart) 1 each PRN DAILY PRN MC SEE COMMENTS ; Start 06/13/18 at 16:30; Stop 06/15/18 at 16:58; Status DC Dextrose (Dextrose 50%-Water Syringe) 12.5 gm PRN Q15MIN PRN IV SEE COMMENTS Last administered on 06/14/18at 07:53; Start 06/14/18 at 07:45 Amino Acids/ Glycerin/ Electrolytes 1,000 ml @ 80 mls/hr [id number] IV Last administered on 06/18/18 03:05; Start 06/14/18 at 12:00 Fentanyl Citrate (Fentanyl 2ml Vial) 50 mcg PRN Q2HR PRN IV PAIN Last administered on 06/14/18at 22:30; Start 06/14/18 at 13:15 Throat Lozenges (Chloraseptic) 1 spray PRN Q2HR PRN PO SORE THROAT; Start 06/14 at 16:15 Sodium Chloride 1,000 ml @ 1,000 mls/hr Q1H PRN IV hypotension; Start 06/15/18 at 07:53; Stop 06/15/18 at 13:52; Status DC Albumin Human 200 ml @ 200 mls/hr 1X PRN PRN IV Hypotension; Start 06/15/18 at 08:00; Stop 06/15/18 at 13:59; Status DC Acetaminophen (Tylenol) 500 mg 1X PRN PRN PO MILD PAIN / TEMP; Start 06/15/18 at 08:00; Stop 06/16/18 at 07:59; Status DC Diphenhydramine HCl (Benadryl) 25 mg 1X PRN PRN IV ITCHING; Start 06/15/18 at 08:00; Stop 06/16/18 at 07:59; Status DC Diphenhydramine HCl (Benadryl) 25 mg 1X PRN PRN IV ITCHING; Start 06/15/18 at 08:00; Stop 06/16/18 at 07:59; Status DC Sodium Chloride 1,000 ml @ 400 mls/hr Q2H30M PRN IV PATENCY; Start 06/15/18 at 07:53; Stop 06/15/18 at 19:52; Status DC Info (PHARMACY MONITORING -- do not chart) 1 each PRN DAILY PRN MC SEE COMMENTS ; Start 06/15/18 at 08:00 Clonidine HCl (Catapres Tts-1) 1 patch Cooney TD Last administered on 06/16/18at 10: 35; Start 06/16/18 at 10:00 Lidocaine/Sodium Bicarbonate (Buffered Lidocaine 1%) 3 ml STK-MED ONCE .ROUTE ; Start 06/17/18 at 10:42; Stop 06/17/18 at 10:43; Status DC Lidocaine/Sodium Bicarbonate (Buffered Lidocaine 1%) 6 ml 1X ONCE INJ Last administered on 06/17/18at 11:43; Start 06/17/18 at 11:30; Stop 06/17/18 at 11:31; Status DC Iohexol (Omnipaque 240 Mg/ml) 50 ml STK-MED ONCE .ROUTE ; Start 06/17/18 at 11:35 ; Stop 06/17/18 at 11:36; Status DC Iohexol (Omnipaque 240 Mg/ml) 50 ml 1X ONCE IJ Last administered on 06/17/18at 11:45; Start 06/17/18 at 12:15; Stop 06/17/18 at 12:16; Status DC Info (CONTRAST GIVEN -- Rx MONITORING) 1 each PRN DAILY PRN MC SEE COMMENTS; Start 06/17/18 at 11:45; Stop 06/19/18 at 11:44 Heparin Sodium (Porcine) (Hep Lock Adult) 500 unit STK-MED ONCE IV ; Start at 11:44; Stop 06/17/18 at 11:45; Status DC Sodium Chloride 1,000 ml @ 1,000 mls/hr Q1H PRN IV hypotension; Start 06/18/18 at 07:22; Stop 06/18/18 at 13:21; Status DC Albumin Human 200 ml @ 200 mls/hr 1X PRN PRN IV Hypotension; Start 06/18/18 at 07:30; Stop 06/18/18 at 13:29; Status DC Sodium Chloride (Normal Saline Flush) 10 ml 1X PRN PRN IV AP catheter pack; Start 06/18/18 at 07:30; Stop 06/19/18 at 07:29 Sodium Chloride (Normal Saline Flush) 10 ml 1X PRN PRN IV FOOD CRITIC catheter pack; Start 06/18/18 at 07:30; Stop 06/19/18 at 07:29 Sodium Chloride 1,000 ml @ 400 mls/hr Q2H30M PRN IV PATENCY; Start 06/18/18 at 07:22; Stop 06/18/18 at 19:21 Info (PHARMACY MONITORING -- do not chart) 1 each PRN DAILY PRN MC SEE COMMENTS ; Start 06/18/18 at 07:30; Status UNV Info (PHARMACY MONITORING -- do not chart) 1 each PRN DAILY PRN MC SEE COMMENTS ; Start 06/18/18 at 07:30 Pantoprazole Sodium (PROTONIX VIAL for IV PUSH) 40 mg DAILYAC IVP Last administered on 06/18/18at 14:32; Start 06/18/18 at 12:30 Active Scripts Active [Darbepoetin Uvaldo In Polysorbat] 60 MCG/0.3 ML Disp.syrin 60 Mcg SQ WEEKLYHS Duoneb 0.5-3(2.5) Mg/3 Ml (Albuterol/Ipratropium) 3 Ml Ampul.neb 3 Ml NEB Q6HRS 30 Days Nephro-Deborah Rx Tablet (Vit B Cmplx 3/Fa/Vit C/Biotin) 1 Each Tablet 1 Each PO DAILY 90 Days Metoprolol Tartrate 50 Mg Tablet 50 Mg PO BID 30 Days Reported Calcium Acetate 667 Mg Tablet 667 Mg PO TIDWMEALS Furosemide 40 Mg Tablet 40 Mg PO BID Lisinopril 20 Mg Tablet 20 Mg PO DAILY Sodium Bicarbonate 650 Mg Tablet 10 Mg PO TID Amlodipine Besylate 10 Mg Tablet 10 Mg PO DAILY Tums (Calcium Carbonate) 300 Mg Tab.chew 300 Mg PO BIDAC Novolog (Insulin Aspart) 100 Unit/1 Ml Cartridge 5 Unit SQ TIDBFRMEAL Lantus Solostar (Insulin Glargine,Hum.rec.anlog) 100 Unit/1 Ml Insuln.pen 10 Unit SQ BID Lipitor (Atorvastatin Calcium) 40 Mg Tablet 40 Mg PO HS Vitals/I & O Vital Sign - Last 24 Hours 06/17/18 06/17/18 06/17/18 06/17/18 18:21 19:00 19:36 20:00 Temp 98.5 98.5 Pulse 92 83 Resp 18 B/P (MAP) 175/57 173/61 (98) Pulse Ox 96 97 O2 Delivery Room Air Room Air Room Air 06/17/18 06/17/18 06/18/18 06/18/18 20:34 23:00 00:53 03:00 Temp 98.1 98.9 98.1 98.9 Pulse 84 88 88 80 Resp 18 18 B/P (MAP) 173/61 145/53 (83) 145/53 161/59 (93) Pulse Ox 95 94 O2 Delivery Room Air Room Air 06/18/18 06/18/18 06/18/18 06/18/18 03:05 05:40 07:25 07:48 Temp 98.4 98.4 Pulse 80 86 78 Resp 18 B/P (MAP) 161/59 153/58 164/54 (90) Pulse Ox 97 97 O2 Delivery Room Air Room Air 406/18/18 06/18/18 06/18/18 08:15 12:06 13:58 14:32 Pulse 98 98 Resp 16 B/P (MAP) 145/61 (89) 145/61 Pulse Ox 100 O2 Delivery Room Air Room Air 06/18/18 06/18/18 15:00 16:10 Temp 98.2 98.2 Pulse 85 Resp 16 B/P (MAP) 154/55 (88) Pulse Ox 99 O2 Delivery Room Air Room Air Intake and Output 06/17/18 06/17/18 06/18/18 15:00 23:00 07:00 Intake Total 685 ml Output Total 50 ml Balance -50 ml 685 ml NATE DE MD Jun 18, 2018 16:47
[2018-06-18 19:25] VITALS: BP 176/59
[2018-06-18 23:44] VITALS: BP 122/38
[2018-06-19] MEDS: METOPROLOL TARTRATE 5 MG/5 ML VIAL. IVP SCH ×2 (00:23→05:52)
[2018-06-19 03:22] VITALS: BP 122/36
[2018-06-19] MEDS: PANTOPRAZOLE IV PUSH 40 MG VIAL. IVP SCH (05:52)
[2018-06-19 06:12] LABS: RED BLOOD COUNT 2.31 x10^6/uL (3.50-5.40); RED CELL DISTRIBUTION WIDTH 17.1 % (11.5-14.5); WHITE BLOOD COUNT 3.3 x10^3/uL (4.0-11.0)
[2018-06-19 06:14] LABS: HEMATOCRIT 20.7 % (36.0-47.0); HEMOGLOBIN 6.8 g/dL (12.0-15.5)
--- NOTE | 2018-06-19 06:24 | NUR ---
Critical hgb 6.8, hct 20.7. Dr. Mena transfer station operator and was paged. Hgb was unchanged from yesterday. No new orders given. stated that Dr. Carlos will give orders if needed. Will continue to monitor.
[2018-06-19 07:00] VITALS: BP 142/46
[2018-06-19] MEDS: INSULIN LISPRO 300 UNITS/3 ML INSULN.PEN. SQ SCH (07:30)
[2018-06-19] MEDS: IPRATRPIUM/ALBUTEROL 0.5/2.5MG 3 ML NEBU. NEB SCH ×2 (07:50→11:32)
[2018-06-19] MEDS: BUDESONIDE 0.5 MG/2 ML NEBU. NEB SCH (07:51)
--- NOTE | 2018-06-19 09:16 | PDOC ---
SURGICAL PROGRESS NOTE Subjective Pt without c/o, NGT out Vital Signs Vital Signs Date Time Temp Pulse Resp B/P (MAP) Pulse Ox O2 Delivery O2 Flow Rate FiO2 06/19/18 07:51 Room Air 06/19/18 07:00 98.0 78 18 142/46 (78) 99 98.0 I&O Intake and Output 06/19/18 07:00 Intake Total 660 ml Balance 660 ml Intake Oral 360 ml IV Total 300 ml # Voids 1 General: Alert, Oriented X3, Cooperative, No acute distress Abdomen: Soft, No tenderness Labs Laboratory Tests Test 06/17/18 12:30 06/17/18 16:51 06/17/18 20:59 06/18/18 05:50 Glucose (Fingerstick) 104 mg/dL (70-99) 107 mg/dL (70-99) 118 mg/dL (70-99) White Blood Count 5.0 x10^3/uL (4.0-11.0) Red Blood Count 2.35 x10^6/uL (3.50-5.40) Hemoglobin 6.8 g/dL (12.0-15.5) Hematocrit 20.9 % (36.0-47.0) Mean Corpuscular Volume 89 fL (79-100) Mean Corpuscular Hemoglobin 29 pg (25-35) Mean Corpuscular Hemoglobin Concent 33 g/dL (31-37) Red Cell Distribution Width 17.7 % (11.5-14.5) Platelet Count 209 x10^3/uL (140-400) Sodium Level 137 mmol/L (136-145) Potassium Level 6.4 mmol/L (3.5-5.1) Chloride Level 93 mmol/L (98-107) Carbon Dioxide Level 31 mmol/L (21-32) Anion Gap 13 (6-14) Blood Urea Nitrogen 97 mg/dL (7-20) Creatinine 8.7 mg/dL (0.6-1.0) Estimated GFR (Cockcroft-Gault) 4.6 Glucose Level 109 mg/dL (70-99) Calcium Level 8.7 mg/dL (8.5-10.1) Test 06/18/18 07:20 06/18/18 13:47 06/18/18 17:20 06/18/18 21:09 Glucose (Fingerstick) 107 mg/dL (70-99) 83 mg/dL (70-99) 112 mg/dL (70-99) 94 mg/dL (70-99) Test 06/19/18 05:58 06/19/18 07:51 White Blood Count 3.3 x10^3/uL (4.0-11.0) Red Blood Count 2.31 x10^6/uL (3.50-5.40) Hemoglobin 6.8 g/dL (12.0-15.5) Hematocrit 20.7 % (36.0-47.0) Mean Corpuscular Volume 90 fL (79-100) Mean Corpuscular Hemoglobin 29 pg (25-35) Mean Corpuscular Hemoglobin Concent 33 g/dL (31-37) Red Cell Distribution Width 17.1 % (11.5-14.5) Platelet Count 192 x10^3/uL (140-400) Glucose (Fingerstick) 89 mg/dL (70-99) Laboratory Tests Test 06/18/18 13:47 06/18/18 17:20 06/18/18 21:09 06/19/18 05:58 Glucose (Fingerstick) 83 mg/dL (70-99) 112 mg/dL (70-99) 94 mg/dL (70-99) White Blood Count 3.3 x10^3/uL (4.0-11.0) Red Blood Count 2.31 x10^6/uL (3.50-5.40) Hemoglobin 6.8 g/dL (12.0-15.5) Hematocrit 20.7 % (36.0-47.0) Mean Corpuscular Volume 90 fL (79-100) Mean Corpuscular Hemoglobin 29 pg (25-35) Mean Corpuscular Hemoglobin Concent 33 g/dL (31-37) Red Cell Distribution Width 17.1 % (11.5-14.5) Platelet Count 192 x10^3/uL (140-400) Test 06/19/18 07:51 Glucose (Fingerstick) 89 mg/dL (70-99) Problem List Problems Medical Problems: (1) Hyperkalemia Status: Acute (2) Small bowel obstruction Status: Acute Assessment/Plan SBO, appears resolved KARAN LINDQUIST MD Jun 19, 2018 09:16
--- NOTE | 2018-06-19 10:12 | NUR ---
SW following. Discussed with RN, pt has dialysis T, , . RN advised no SW needs and anticipates pt will discharge home today with family, if can tolerate diet. SW will continue to follow.
[2018-06-19 11:00] VITALS: BP 142/54
--- NOTE | 2018-06-19 11:06 | PDOC ---
Subjective: Subjective: On the phone - gives me a thumbs up. Objective: Objective: Per RN - tolerating clears, has had 6 stools. Vital Signs: Vital Signs Date Time Temp Pulse Resp B/P (MAP) Pulse Ox O2 Delivery O2 Flow Rate FiO2 06/19/18 07:51 Room Air 06/19/18 07:00 98.0 78 18 142/46 (78) 99 98.0 Labs: Laboratory Tests Test 06/18/18 13:47 06/18/18 17:20 06/18/18 21:09 06/19/18 05:58 Glucose (Fingerstick) 83 mg/dL 112 mg/dL 94 mg/dL White Blood Count 3.3 x10^3/uL Red Blood Count 2.31 x10^6/uL Hemoglobin 6.8 g/dL Hematocrit 20.7 % Mean Corpuscular Volume 90 fL Mean Corpuscular Hemoglobin 29 pg Mean Corpuscular Hemoglobin Concent 33 g/dL Red Cell Distribution Width 17.1 % Platelet Count 192 x10^3/uL Test 06/19/18 07:51 06/19/18 10:39 Glucose (Fingerstick) 89 mg/dL 157 mg/dL PE: GEN: NAD LUNGS: room air NEURO/PSYCH: A & O 3 - talking on the phone A/P: SBO related to VIH - improved Elevated LFTs - improved ACD - Hgb remains 6.8 ESRD -- Tolerating PO and stooling, continue per surgery. ?transfuse MARILIN BARR Jun 19, 2018 11:06
[2018-06-19 12:00] VITALS: BP_SYST 108; BP_SYST 123; BP_SYST 129; BP_DIAS 61; BP_DIAS 62; BP_DIAS 73
--- NOTE | 2018-06-19 12:31 | PDOC ---
Renal-Progress Notes Subjective Notes Notes FEELING BETTER, ATE HER LIGHT BREAKFAST History of Present Illness Hx of present illness IMPROVED Vitals Vitals Vital Signs Date Time Temp Pulse Resp B/P (MAP) Pulse Ox O2 Delivery O2 Flow Rate FiO2 06/19/18 11:33 Room Air 06/19/18 11:00 97.7 79 18 142/54 (83) 97 97.7 Weight Weight [ ] I.O. Intake and Output Intake and Output 06/19/18 07:00 Intake Total 660 ml Balance 660 ml Intake Oral 360 ml IV Total 300 ml # Voids 1 Labs Labs Laboratory Tests Test 06/18/18 13:47 06/18/18 17:20 06/18/18 21:09 06/19/18 05:58 Glucose (Fingerstick) 83 mg/dL (70-99) 112 mg/dL (70-99) 94 mg/dL (70-99) White Blood Count 3.3 x10^3/uL (4.0-11.0) Red Blood Count 2.31 x10^6/uL (3.50-5.40) Hemoglobin 6.8 g/dL (12.0-15.5) Hematocrit 20.7 % (36.0-47.0) Mean Corpuscular Volume 90 fL (79-100) Mean Corpuscular Hemoglobin 29 pg (25-35) Mean Corpuscular Hemoglobin Concent 33 g/dL (31-37) Red Cell Distribution Width 17.1 % (11.5-14.5) Platelet Count 192 x10^3/uL (140-400) Test 06/19/18 07:51 06/19/18 10:39 Glucose (Fingerstick) 89 mg/dL (70-99) 157 mg/dL (70-99) Review of Systems Constitutional: yes: weakness, alert, oriented Ears/Nose/Throat: Yes: no symptom reported Eyes: Yes: no symptom reported Pulmonary: Yes no symptom reported Cardiovascular: Yes no symptom reported Gastrointestional: Yes: abdominal pain Genitourinary: Yes: no symptom reported Musculoskeletal: Yes: muscle stiffness Skin: Yes no symptom reported Psychiatric/Neurological: Yes: no symptom reported Endocrine: Yes: no symptom reported Physical Exam General Appearance: no apparent distress Skin: warm Respiratory: decreased breath sounds Heart: S1S2 Abdomen: soft, bowel sounds present Genitourinary: bladder flat Extremities: pulses present Neurology: alert, oriented Assessment Assessment IMP HYPERKALEMIA-RESOLVED ANEMIA ESRD-TTS DM II HTN SBO-RESOLVED PLAN EATING BETTER HD TOMORROW OP IF DISCHARGED OK TO D/C FROM RENAL STANDPOINT CYNDEE FLORES MD Jun 19, 2018 12:31
--- NOTE | 2018-06-19 15:00 | NUR ---
Discharge orders placed. Discharge instructions/medications discussed with pt/pt . Explained pt will need to resume dialysis regime tomorrow. Pt/pt voices understanding. Chest power line removed by ALY June and Jose, student RN without complications. Explained pt will need to f/u with Dr. Bardales x 2-3. Pt voiced understanding. Pt walked out to hospital exit with and TERRI Newton without complications.
--- NOTE | 2018-06-19 20:37 | DS ---
DATE OF DISCHARGE: 06/19/2018 ADMIT DIAGNOSIS: Small bowel obstruction. DISMISSAL DIAGNOSIS: Resolved small-bowel obstruction. SECONDARY DIAGNOSES: 1. End-stage renal disease, on dialysis. 2. Chronic anemia. 3. Type 2 diabetes. 4. Hypertension. 5. Hyperlipidemia. 6. Chronic obstructive pulmonary disease. 7. 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 HOSPITAL COURSE: A 63-year-old female who came in with increasing abdominal pain, nausea, vomiting and found to have a small-bowel obstruction on x-ray in the ER. She was admitted to the hospital. NG tube was placed. She decompressed for several days and improved. Bowel sounds began to improve and the patient started passing gas. Therefore, a diet trial was done and the patient did improve to the point she was feeling well with less pain and able to tolerate diet. She did receive her routine dialysis during hospital stay and her initial findings of hyperkalemia were resolved with dialysis. The patient was significantly anemic with hemoglobin of 6.8 on discharge. This was stable and plans to monitor hemoglobin recovery through dialysis were made. No transfusion was wrote at this time and the patient will be discharged to home with dialysis on Tuesdays, and Saturdays. DISCHARGE MEDICATIONS: As follows: Amlodipine 10 mg daily, atorvastatin 40 mg daily, calcium acetate 667 mg 1 tablet t.i.d., calcium in the form of Tums 300 mg b.i.d., Aricept 60 mcg weekly, Lasix 40 mg b.i.d., NovoLog 5 units with meals, Glargine insulin 10 units twice a day, DuoNeb nebulizer treatments q.6h., lisinopril 20 mg daily, metoprolol 50 mg b.i.d., bicarbonate 10 mg t.i.d., B complex vitamins daily. NATE DE MD DR: LITTLE/nataliya JOB#: [id number] / [id number]
== END 2018-06-19 15:05 | disposition home or self-care (01) | DRG 393 ==
LOC: ER 08:05 → 4 NORTH 10:49
PROVIDERS: ADMIT Family Medicine; ATTEND Family Medicine
PROC: 0D9670Z Drainage of Stomach with Drainage Device, Via Natural or Artificial Opening (ICD-10-PCS; principal; 2018-06-13)
PROC: 5A1D70Z Performance of Urinary Filtration, Intermittent, Less than 6 Hours Per Day (ICD-10-PCS; 2018-06-13)
PROC: 02HV33Z Insertion of Infusion Device into Superior Vena Cava, Percutaneous Approach (ICD-10-PCS; 2018-06-15)
PROC: B5181ZA Fluoroscopy of Superior Vena Cava using Low Osmolar Contrast, Guidance (ICD-10-PCS; 2018-06-15)
PROC: B548ZZA Ultrasonography of Superior Vena Cava, Guidance (ICD-10-PCS; 2018-06-15)
PROC: 5A1D70Z Performance of Urinary Filtration, Intermittent, Less than 6 Hours Per Day (ICD-10-PCS; 2018-06-15)
PROC: 5A1D70Z Performance of Urinary Filtration, Intermittent, Less than 6 Hours Per Day (ICD-10-PCS; 2018-06-18)
PROC: 0JHD3XZ Insertion of Tunneled Vascular Access Device into Right Upper Arm Subcutaneous Tissue and Fascia, Percutaneous Approach (ICD-10-PCS; 2018-06-18)
DX: K43.0 Incisional hernia with obstruction, without gangrene (principal); N18.6 End stage renal disease; E43 Unspecified severe protein-calorie malnutrition; I13.2 Hypertensive heart and chronic kidney disease with heart failure and with stage 5 chronic kidney disease, or end stage renal disease; E11.22 Type 2 diabetes mellitus with diabetic chronic kidney disease; E87.5 Hyperkalemia; I50.9 Heart failure, unspecified; E78.00 Pure hypercholesterolemia, unspecified; E03.9 Hypothyroidism, unspecified; E78.5 Hyperlipidemia, unspecified; J44.9 Chronic obstructive pulmonary disease, unspecified; M19.90 Unspecified osteoarthritis, unspecified site; F32.9 Major depressive disorder, single episode, unspecified; F41.9 Anxiety disorder, unspecified; H40.9 Unspecified glaucoma; D63.8 Anemia in other chronic diseases classified elsewhere; K59.09 Other constipation; K57.90 Diverticulosis of intestine, part unspecified, without perforation or abscess without bleeding; Z99.2 Dependence on renal dialysis; Z90.49 Acquired absence of other specified parts of digestive tract; Z90.710 Acquired absence of both cervix and uterus; Z88.1 Allergy status to other antibiotic agents; Z83.3 Family history of diabetes mellitus; Z82.49 Family history of ischemic heart disease and other diseases of the circulatory system; Z68.24 Body mass index [BMI] 24.0-24.9, adult
CPT/HCPCS: 36415; 36558; 74018; 74022; 74176; 76705; 76937; 77001; 80048; 80053; 80076; 82962; 83036; 83690; 84484; 85018; 85025; 85027; 93005; 93975; 94640; 94760; 96374; 96375; C1713; C1751; C1892; C9113; J0360; J0881; J1815; J2270; J2405; J3010; J3490; J7042; J7620; J7626; Q9966; 99285-25

== ENCOUNTER 2018-09-04 06:53 | Outpatient (CLI) | payer OTHER, MEDICARE ==
[2018-09-04] VITALS (8 sets, daily range): BP systolic 140–197; BP diastolic 58–83
[~2018-09-04] VITALS: Ht 157.5 cm; Wt 64.0 kg
[2018-09-04] MEDS ORDERED: INSU100C SQ (07:29)
[2018-09-04] MEDS ORDERED: INSU100I32 SQ (07:29)
[2018-09-04 07:51] LABS: CALCIUM 8.4 mg/dL (8.5-10.1); CREATININE 5.8 mg/dL (0.6-1.0); GFR 7.3; POTASSIUM 4.8 mmol/L (3.5-5.1)
[2018-09-04 07:52] LABS: BASO # 0.1 x10^3/uL (0.0-0.2); BASO % 2 % (0-3); EOS # 0.2 x10^3/uL (0.0-0.7); EOS % 4 % (0-3); HEMATOCRIT 34.2 % (36.0-47.0); LYMPH # 0.6 x10^3/uL (1.0-4.8); LYMPH % 12 % (24-48); MEAN CORPUSCULAR HEMOGLOBIN 29 pg (25-35); MEAN CORPUSCULAR HGB CONC 32 g/dL (31-37); MEAN CORPUSCULAR VOLUME 91 fL (79-100); MONO # 0.5 x10^3/uL (0.0-1.1); MONO % 9 % (0-9); NEUT # 3.6 x10^3uL (1.8-7.7); NEUT % 73 % (31-73); PLATELET COUNT 260 x10^3/uL (140-400); RED BLOOD COUNT 3.77 x10^6/uL (3.50-5.40); RED CELL DISTRIBUTION WIDTH 17.1 % (11.5-14.5)
--- NOTE | 2018-09-04 07:56 | NUR ---
Patient blood pressure high and states she has not taken medications in 24 hours, per Dr. Arteaga patient to take AM blood pressure medications now.
[2018-09-04] MEDS ORDERED: LIDOCAINE WITH 8.4% SOD BICARB 3 ML DISP.SYRIN. ONE (08:02)
[2018-09-04] MEDS ORDERED: IODIXANOL 320 MG/ML 100 ML VIAL. ONE (08:02)
[2018-09-04 08:05] LABS: PROTHROMBIN TIME PATIENT 13.3 SEC (11.7-14.0)
[2018-09-04] MEDS ORDERED: fentaNYL PF VIAL 100 MCG/2 ML VIAL ONE (08:19)
[2018-09-04] MEDS ORDERED: MIDAZOLAM HCL/PF 2 MG/2 ML VIAL. ONE (08:19)
[2018-09-04] MEDS ORDERED: ONDANSETRON PF 4 MG/2 ML VIAL. ONE (08:36)
[2018-09-04] MEDS ORDERED: ONDANSETRON PF 4 MG/2 ML VIAL. IM ONE (09:00)
[2018-09-04] MEDS ORDERED: MIDAZOLAM HCL/PF 2 MG/2 ML VIAL. IV ONE (09:00)
[2018-09-04] MEDS ORDERED: LIDOCAINE WITH 8.4% SOD BICARB 3 ML DISP.SYRIN. IJ ONE ×2 (09:00→09:15)
[2018-09-04] MEDS ORDERED: fentaNYL PF VIAL 100 MCG/2 ML VIAL IV ONE ×2 (09:00→09:15)
[2018-09-04] MEDS ORDERED: ONDANSETRON PF 4 MG/2 ML VIAL. IV ONE (09:00)
[2018-09-04] MEDS ORDERED: HEPARIN for IV BOLUS 10,000 UNIT/10 ML VIAL. ONE (09:12)
[2018-09-04] MEDS ORDERED: HEPARIN for IV BOLUS 10,000 UNIT/10 ML VIAL. IV ONE (09:15)
[2018-09-04] MEDS ORDERED: IODIXANOL 320 MG/ML 100 ML VIAL. IART ONE (09:30)
--- NOTE | 2018-09-04 10:48 | RAD ---
EXAM: CHEST 1 VIEW History: Shortness of breath COMPARISON: 03/05/2018 TECHNIQUE: Single portable radiograph of the chest FINDINGS: Low lung volumes accentuates heart size and pulmonary vascularity. Mild cardiomegaly. Mild prominent appearing bilateral interstitial lung markings particularly in the bilateral perihilar region likely mild congestive changes. The costophrenic sulci are clear and well demarcated. IMPRESSION: Mild congestive changes. Electronically signed by: Arpit Nicolas MD (09/04/2018 10:45 AM) [place] [id number]
--- NOTE | 2018-09-04 11:04 | NUR ---
Patient SOA, coughing and consistently clearing throat. states she has an appt with Dr. Esposito tomorrow for SOA x1 week. Unable to maintain 02 Sat greater than 80% on room air, maintains 02 sat greater than 90% on [address] Esposito notified via telephone received orders for Chest xray and 6 minute walk. Will continue to monitor.
--- NOTE | 2018-09-04 11:45 | NUR ---
Patient completed [address] Esposito at bedside assessing patient. Per Dr. Esposito patient needs 2L/NC oxygen with exertion. jewelry bench worker notified and given order, awaiting oxygen tank for patient to be discharged home.
--- NOTE | 2018-09-04 12:31 | RAD ---
09/04/2018 1.Left upper extremity fistulogram 2. Balloon angioplasty venous anastomotic stenosis Discussion: Risks and benefits of the procedure were discussed the patient. Informed consent was obtained. Timeout procedure was performed. Left upper extremity was prepped and draped using sterile barrier technique. 1% lidocaine was administered for local anesthesia. The left upper extremity AV graft was accessed directed towards arterial anastomosis using micropuncture technique. A 5 [place] vascular sheath was placed. Fistulogram was demonstrated the arterial anastomosis to be widely patent the graft is patent there is a mild to moderate outflow vein stenosis at the venous anastomosis. Otherwise Central veins appear to be grossly patent. The fistula was accessed in a similar manner directed towards the venous outflow. The stenosis was crossed. Angioplasty was performed with a 7 mm balloon resulting in improved morphology and flow. Sheaths were removed over perching sutures. Manual pressure was held. Sterile dressings were applied. The procedure was performed under conscious sedation including continuous cardiopulmonary monitoring via dedicated sedation nurse. [id number] sedation time: 65 minutes. Total fluoroscopy time: 3.1 MIN Dose area product: 39 Gycm2 Impression: [id number] venous anastomotic stenosis treated with balloon angioplasty. Otherwise patent left upper extremity AV graft.
--- NOTE | 2018-09-04 13:01 | NUR ---
Dr. Esposito assessed patient at bedside after 6 minute walk, ordered patient to be sent home on 2 L/NC with exertion and followup in office in December 2018; patient and verbalized understanding. Patient received portable oxygen tank from [facility]. Patient instructed to call [facility] when she arrives at home for more equipment can be delivered, patient and verbalized understanding. Discharge Note: NILESH SUAZO Discharge instructions and discharge home medications reviewed with Spouse and a copy given. All questions have been answered and understanding verbalized. Patient ate lunch with no difficulties. The following instructions and handouts were given: Moderate sedation, AV Fistula care and oxygen use at home. Discontinued lines and drains: PIV right hand, dressing clean dry intact. Patient discharged to home with via wheelchair in private vehicle.
--- NOTE | 2018-09-04 22:08 | CONS ---
DATE OF CONSULTATION: 09/04/2018 ATTENDING PHYSICIAN: Dr. Rocael Arteaga. REASON FOR CONSULTATION: The patient seen in pulmonary consultation at the request of Dr. Arteaga for hypoxemia. HISTORY OF PRESENT ILLNESS: The patient is a 63-year-old that presented with AV fistula malfunctioning. She underwent manipulation. She is status post repair of the malfunctioning AV graft. She was found to be hypoxic. I was called to see her in consultation. The patient is well known to me from previous hospitalization. She has had abnormal CT chest revealing bilateral pulmonary infiltrates compatible with interstitial edema. She has had previous hemoptysis, history of asthma and prior history of Enterobacter aeruginosa sensitive to Levaquin. She has been treated. She has not been seen in the office for quite some time. She has always had an abnormal x-ray. She had a repeat x-ray today revealing bilateral interstitial infiltrates compatible with edema. The patient reports a cough, nonproductive. No fever, chills or night sweats. PAST MEDICAL HISTORY: End-stage renal disease, on hemodialysis, asthma, previous AV shunt placement, hyperlipidemia, hypertension, gastroesophageal reflux disease. She has had previous abdominal surgery, hernia repair, cholecystectomy, hysterectomy, chronic pain syndrome, osteoarthritis, hypothyroidism, depression, anxiety. PAST SURGICAL HISTORY: As above. SOCIAL HISTORY: She has never smoked. ALLERGIES: CEFAZOLIN. REVIEW OF SYSTEMS: As indicated above, otherwise, a 10-point system was reviewed and negative. FAMILY HISTORY: Noncontributory. No family history of lung disorders. PHYSICAL EXAMINATION: VITAL SIGNS: Stable. O2 saturation was greater than 92% on 2 liters. HEENT: Eyes, the sclerae were nonicteric. NECK: Jugular venous distention was not elevated. No lymphadenopathy. CHEST: Full expansion. LUNGS: With crackles bilaterally with no wheezes. CARDIOVASCULAR: Regular rate and rhythm with S1, S2, no S3. ABDOMEN: Soft, nontender, nondistended. EXTREMITIES: No clubbing, cyanosis or edema. IMAGING: Chest x-ray was reviewed. There was vascular congestion in comparison to the film of 03/05/2018. There appears to be more pulmonary edema. IMPRESSION: 1. Acute on chronic hypoxemic respiratory failure. 2. Status post bilateral angioplasty of the venous anastomosis stenosis of her AV graft. 3. End-stage renal disease, on hemodialysis. 4. Abnormal chest x-ray. 5. Prior history of asthma. 6. Prior history of respiratory failure, Enterobacter aeruginosa in sputum, treated with antibiotics. PLAN: 1. The patient underwent a 6-minute walk; she requires oxygen supplementation at 2 liters per nasal cannula. 2. Recommend negative fluid balance doing hemodialysis. 3. Follow up in the office in 3-4 months. 4. Continue bronchodilators at home. I do appreciate the privilege in sharing this patient's care. BARBRA PAL MD DR: AURELIA/nataliya JOB#: [id number] / [id number]
== END 2018-09-04 12:30 | disposition home or self-care (01) ==
LOC: INTRAD 06:53
PROVIDERS: ATTEND Surgery
DX: T82.858A Stenosis of other vascular prosthetic devices, implants and grafts, initial encounter (principal); J45.909 Unspecified asthma, uncomplicated; E03.9 Hypothyroidism, unspecified; F32.9 Major depressive disorder, single episode, unspecified; F41.9 Anxiety disorder, unspecified; E78.5 Hyperlipidemia, unspecified; I10 Essential (primary) hypertension; K21.9 Gastro-esophageal reflux disease without esophagitis; Z79.01 Long term (current) use of anticoagulants; Z90.710 Acquired absence of both cervix and uterus; Z88.8 Allergy status to other drugs, medicaments and biological substances; Y83.8 Other surgical procedures as the cause of abnormal reaction of the patient, or of later complication, without mention of misadventure at the time of the procedure; Y92.89 Other specified places as the place of occurrence of the external cause
CPT/HCPCS: 36415; 36902; 71045; 80048; 85025; 85610; 94618; 99152; 99153; C1713; C1758; C1769; C1892; C1894; J1644; J2250; J2405; J3010; Q9967; 36901; 76937

== ENCOUNTER 2019-06-16 07:00 | Outpatient (CLI) | payer OTHER, MEDICARE ==
[~2019-06-16] VITALS: Ht 157.5 cm; Wt 73.5 kg
[~2019-06-16 07:00] MED LIST changes: +INSU100C SQ; +INSU100I32 SQ; +LISI1TAB19 PO; -LISI1TAB5 PO
[2019-06-16 07:35] LABS: BASO # 0.1 x10^3/uL (0.0-0.2); BASO % 1 % (0-3); EOS # 0.2 x10^3/uL (0.0-0.7); EOS % 4 % (0-3); HEMATOCRIT 35.5 % (36.0-47.0); HEMOGLOBIN 11.4 g/dL (12.0-15.5); LYMPH # 0.8 x10^3/uL (1.0-4.8); LYMPH % 15 % (24-48); MEAN CORPUSCULAR HEMOGLOBIN 30 pg (25-35); MEAN CORPUSCULAR HGB CONC 32 g/dL (31-37); MEAN CORPUSCULAR VOLUME 93 fL (79-100); MONO # 0.4 x10^3/uL (0.0-1.1); MONO % 8 % (0-9); NEUT # 3.8 x10^3/uL (1.8-7.7); NEUT % 72 % (31-73); PLATELET COUNT 210 x10^3/uL (140-400); RED CELL DISTRIBUTION WIDTH 18.1 % (11.5-14.5); WHITE BLOOD COUNT 5.3 x10^3/uL (4.0-11.0)
[2019-06-16 07:38] LABS: CALCIUM 8.1 mg/dL (8.5-10.1); CREATININE 9.6 mg/dL (0.6-1.0); GFR 4.1; POTASSIUM 5.2 mmol/L (3.5-5.1)
[2019-06-16 08:00] VITALS: BP 145/74
[2019-06-16] MEDS ORDERED: LIDOCAINE WITH 8.4% SOD BICARB 3 ML DISP.SYRIN. ONE (08:01)
[2019-06-16] MEDS ORDERED: IODIXANOL 320 MG/ML 100 ML VIAL. ONE (08:01)
[2019-06-16] MEDS ORDERED: MIDAZOLAM HCL/PF 2 MG/2 ML VIAL. ONE (08:34)
[2019-06-16] MEDS ORDERED: fentaNYL PF VIAL 100 MCG/2 ML VIAL ONE (08:34)
[2019-06-16] MEDS ORDERED: HEPARIN for IV BOLUS 10,000 UNIT/10 ML VIAL. ONE (08:35)
[2019-06-16] MEDS ORDERED: fentaNYL PF VIAL 100 MCG/2 ML VIAL IV ONE (08:45)
[2019-06-16] MEDS ORDERED: IODIXANOL 320 MG/ML 100 ML VIAL. IART ONE (08:45)
[2019-06-16] MEDS ORDERED: MIDAZOLAM HCL/PF 2 MG/2 ML VIAL. IV ONE (08:45)
[2019-06-16] MEDS ORDERED: LIDOCAINE WITH 8.4% SOD BICARB 3 ML DISP.SYRIN. IJ ONE (08:45)
[2019-06-16 09:14] VITALS: BP 147/67
[2019-06-16] MEDS ORDERED: HEPARIN for IV BOLUS 10,000 UNIT/10 ML VIAL. IV ONE (09:30)
[2019-06-16 09:35] VITALS: BP 144/71
[2019-06-16 09:50] VITALS: BP 143/63
[2019-06-16 10:05] VITALS: BP 131/69
--- NOTE | 2019-06-16 10:18 | NUR ---
Discharge Note: NILESH SUAZO Discharge instructions and discharge home medications reviewed with Patient and a copy given. All questions have been answered and understanding verbalized. The following instructions and handouts were given: moderate sedation and Dialysis (AV) shunt malfunction Discontinued lines and drains: Peripheral IV intact. Patient discharged to Home or Self Care withSpousevia Wheelchair
--- NOTE | 2019-06-17 10:48 | RAD ---
06/16/2019 1.Left upper extremity fistulogram 2. Balloon angioplasty venous anastomotic stenosis Discussion: Risks and benefits of the procedure were discussed the patient. Informed consent was obtained. Timeout procedure was performed. Left upper extremity was prepped and draped using sterile barrier technique. 1% lidocaine was administered for local anesthesia. The left upper extremity AV graft was accessed directed towards arterial anastomosis using micropuncture technique. A 5 Ukrainian vascular sheath was placed. Fistulogram was demonstrated the arterial anastomosis to be widely patent the graft is patent there is a mild to moderate outflow vein stenosis at the venous anastomosis. Otherwise Central veins appear to be grossly patent. The fistula was accessed in a similar manner directed towards the venous outflow. The stenosis was crossed. Angioplasty was performed with a 7 mm balloon resulting in improved morphology and flow. Sheaths were removed over perching sutures. Manual pressure was held. Sterile dressings were applied. The procedure was performed under conscious sedation including continuous cardiopulmonary monitoring via dedicated sedation nurse. Xldi-ap-llzv sedation time 30 minutes.. Total fluoroscopy time: 3.1 MIN Dose area product: 31 Gycm2 Impression: Recurrent AV anastomosis left upper extremity AV graft. Recurrent moderate stenosis at the venous anastomosis one year following prior angioplasty. Repeat angioplasty demonstrates improvement in morphology and flow.
== END 2019-06-16 10:25 | disposition home or self-care (01) ==
LOC: INTRAD 07:00
PROVIDERS: ATTEND Internal Medicine Nephrology
DX: T82.858A Stenosis of other vascular prosthetic devices, implants and grafts, initial encounter (principal); Z79.01 Long term (current) use of anticoagulants; Z87.39 Personal history of other diseases of the musculoskeletal system and connective tissue; Y83.8 Other surgical procedures as the cause of abnormal reaction of the patient, or of later complication, without mention of misadventure at the time of the procedure; Y92.89 Other specified places as the place of occurrence of the external cause
CPT/HCPCS: 36415; 36902; 76937; 80048; 85025; 85610; 85730; 99152; 99153; C1758; C1769; C1892; C1894; J1644; J2250; J3010; J3490; Q9967

== ENCOUNTER 2019-10-30 06:55 | Outpatient (CLI) | payer OTHER, MEDICARE ==
[~2019-10-30] VITALS: Ht 157.5 cm; Wt 74.4 kg
[~2019-10-30 06:55] MED LIST changes: -ASPI-612 PO; +ASPI-886 PO; -LISI1TAB19 PO; +LISI1TAB37 PO; -VANC1VIA3 MC; +VANC1VIA38 MC
[2019-10-30 07:30] VITALS: BP 150/63
[2019-10-30 07:30] LABS: BASO % 1 % (0-3); EOS % 0 % (0-3); HEMATOCRIT 34.2 % (36.0-47.0); LYMPH # 0.5 x10^3/uL (1.0-4.8); LYMPH % 5 % (24-48); MEAN CORPUSCULAR HEMOGLOBIN 30 pg (25-35); MEAN CORPUSCULAR HGB CONC 32 g/dL (31-37); MEAN CORPUSCULAR VOLUME 93 fL (79-100); MONO # 0.4 x10^3/uL (0.0-1.1); MONO % 4 % (0-9); NEUT # 8.4 x10^3/uL (1.8-7.7); NEUT % 90 % (31-73); PLATELET COUNT 281 x10^3/uL (140-400); RED BLOOD COUNT 3.68 x10^6/uL (3.50-5.40); WHITE BLOOD COUNT 9.3 x10^3/uL (4.0-11.0)
[2019-10-30 07:40] LABS: CALCIUM 8.6 mg/dL (8.5-10.1); CREATININE 5.1 mg/dL (0.6-1.0); GFR 8.5; POTASSIUM 4.9 mmol/L (3.5-5.1)
[2019-10-30 07:46] LABS: PROTHROMBIN TIME PATIENT 13.1 SEC (11.7-14.0)
[2019-10-30] MEDS ORDERED: AZIT1PAC9 PO (08:01)
[2019-10-30] MEDS ORDERED: GUAI1TAB10 PO (08:01)
[2019-10-30] MEDS ORDERED: LISI-334 PO (08:01)
[2019-10-30] MEDS ORDERED: BENZ100C PO (08:01)
[2019-10-30] MEDS ORDERED: CALC200T3 PO (08:01)
[2019-10-30] MEDS ORDERED: INSU100I13 SQ (08:01)
[2019-10-30] MEDS ORDERED: FERR210T PO (08:01)
[2019-10-30] MEDS ORDERED: PRED-220 PO (08:01)
[2019-10-30] MEDS ORDERED: ALBU2.5V8 IH (08:06)
[2019-10-30] MEDS ORDERED: FLUT1DIS3 IH (08:06)
[2019-10-30] MEDS ORDERED: IODIXANOL 320 MG/ML 100 ML VIAL. ONE (08:07)
[2019-10-30] MEDS ORDERED: LIDOCAINE WITH 8.4% SOD BICARB 3 ML DISP.SYRIN. ONE (08:07)
[2019-10-30] MEDS ORDERED: MIDAZOLAM HCL/PF 5 MG/5 ML VIAL. ONE (08:08)
[2019-10-30] MEDS ORDERED: fentaNYL PF VIAL 100 MCG/2 ML VIAL ONE (08:09)
[2019-10-30] MEDS ORDERED: HEPARIN for IV BOLUS 10,000 UNIT/10 ML VIAL. ONE (08:09)
[2019-10-30] MEDS ORDERED: MIDAZOLAM HCL/PF 5 MG/5 ML VIAL. IV ONE (09:00)
[2019-10-30] MEDS ORDERED: fentaNYL PF VIAL 100 MCG/2 ML VIAL IV ONE (09:00)
[2019-10-30] MEDS ORDERED: IODIXANOL 320 MG/ML 100 ML VIAL. IART ONE (09:00)
[2019-10-30] MEDS ORDERED: LIDOCAINE WITH 8.4% SOD BICARB 3 ML DISP.SYRIN. IJ ONE (09:00)
[2019-10-30] MEDS ORDERED: CONTRAST GIVEN. MC PRN (09:15)
[2019-10-30 09:43] VITALS: BP 143/64
[2019-10-30] MEDS ORDERED: HEPARIN for IV BOLUS 10,000 UNIT/10 ML VIAL. IV ONE (10:00)
[2019-10-30 10:10] VITALS: BP 140/70
[2019-10-30 10:21] LABS: % LYMPHS 4 % (24-48); % MONOS 3 % (0-10); % SEGS 93 % (35-66); PLT ESTIMATE ADEQUATE (ADEQUATE)
[2019-10-30 10:25] VITALS: BP 142/56
[2019-10-30 10:40] VITALS: BP 131/64
--- NOTE | 2019-10-30 11:18 | NUR ---
Discharge Note: NILESH SUAZO Discharge instructions and discharge home medications reviewed with Spouse and a copy given. All questions have been answered and understanding verbalized. The following instructions and handouts were given: Moderate sedation, angioplasty with stent placement and Fistula care. Discontinued lines and drains: Right forearm PIV, dressing clean dry intact. Patient discharged to home with via wheelchair to private vehicle.
--- NOTE | 2019-10-30 13:44 | RAD ---
10/30/2019 1. Left upper extremity AV fistulogram 2. Balloon venous anastomotic stenosis 3. Placement of a covered stent extending across the venous anastomosis secondary to large proximal collateral vein Discussion The procedure was explained in its entirety to the patient or the patients designated wine sales representative by a member of the treatment team, including a discussion of the risks, benefits and commonly accepted alternatives to the procedure, as well as the expected consequences of no therapy whatsoever. Discussion of the risks included, but was not limited to, those that are most frequent and those that are rare but possibly severe or life-threatening, as well as the possibility of unforeseen complications. All elements of maximal sterile barrier technique including the use of a cap, mask, sterile gown, sterile gloves, large sterile sheet, appropriate hand hygiene, and 2% chlorhexidine for cutaneous antisepsis (or acceptable alternative antiseptic per current guidelines) were followed for this procedure. Ultrasound evaluation demonstrates a left upper extremity AV graft to be patent. The graft was accessed directed towards venous outflow using micropuncture technique and direct ultrasound guidance. Reference ultrasound images were saved the medical record. Fistulograms were obtained. The graft is widely patent. The arterial anastomosis patent. Moderate stenosis at the venous anastomosis seen. There is a large collateral vein arising from the proximal outflow vein just the venous anastomosis, which results in diminished outflow. No central stenosis is identified. The venous anastomosis was traversed with a guidewire. Balloon dilatation was performed to 8 mm, which did improve flow, but did not resolve the significant collateral flow which was felt to be the also because of the recurrent stenosis in this area. 7 mm covered stent was placed extending from the current graft into the proximal outflow vein with resultant filling of side aforementioned collaterals. Sheath was removed over pursestring sutures. Manual pressure was held. No immediate complications were identified. Total fluoroscopy time: 5.3 min Dose area product: 39 Gycm2 The procedures performed under conscious sedation including continuous cardiopulmonary monitoring via dedicated sedation nurse. Vitj-wx-lplu sedation time: 60 minutes Impression: Recurrent venous anastomotic stenosis with large proximal collaterals arising just beyond the stenosis treated with a combination of balloon angioplasty and covered stent placement as described
== END 2019-10-30 11:00 | disposition home or self-care (01) ==
LOC: INTRAD 06:55
PROVIDERS: ATTEND Internal Medicine Nephrology
DX: N18.6 End stage renal disease (principal); T82.858A Stenosis of other vascular prosthetic devices, implants and grafts, initial encounter; Y83.8 Other surgical procedures as the cause of abnormal reaction of the patient, or of later complication, without mention of misadventure at the time of the procedure; Y92.89 Other specified places as the place of occurrence of the external cause; Z88.8 Allergy status to other drugs, medicaments and biological substances
CPT/HCPCS: 36415; 36903; 76937; 80048; 85007; 85025; 85610; 99152; 99153; C1725; C1769; C1892; C1894; J1644; J2250; J3010; J3490; Q9967

== ENCOUNTER → 2020-01-20 | Outpatient (CLI) | payer OTHER, MEDICARE ==
[~2020-01-20] MED LIST changes: +ALBU2.5V8 IH; +AMLO-187 PO; -AMLO10TA8 PO; +AZIT1PAC9 PO; +BENZ100C PO; +CALC200T3 PO; +FERR210T PO; +GUAI1TAB10 PO
== END ==
LOC: LAB 12:45
PROVIDERS: ATTEND Internal Medicine Cardiovascular Disease
DX: Z01.812 Encounter for preprocedural laboratory examination (principal); Z20.828 Contact with and (suspected) exposure to other viral communicable diseases; R07.9 Chest pain, unspecified; R06.09 Other forms of dyspnea
CPT/HCPCS: U0003

== ENCOUNTER → 2020-01-23 | Outpatient (CLI) | payer OTHER, MEDICARE ==
[2020-01-23] VITALS (16 sets, daily range): BP systolic 91–136; BP diastolic 43–69
[~2020-01-23] VITALS: Ht 144.8 cm; Wt 63.5 kg
[~2020-01-23] MED LIST changes: +CONTRAST GIVEN. MC PRN; +IODIXANOL 320 MG/ML 100 ML VIAL. IART ONE; +IODIXANOL 320 MG/ML 100 ML VIAL. ONE; +IV 1/2 NORMAL SALINE 1,000 ML IV SCH; +LIDOCAINE 1% Multi-Dose 20 ML VIAL. INJ ONE; +LIDOCAINE 1% Multi-Dose 20 ML VIAL. ONE; +MIDAZOLAM HCL/PF 2 MG/2 ML VIAL. IV ONE; +MIDAZOLAM HCL/PF 2 MG/2 ML VIAL. ONE; +fentaNYL PF VIAL 100 MCG/2 ML VIAL IV ONE; +fentaNYL PF VIAL 100 MCG/2 ML VIAL ONE
[2020-01-23 07:47] LABS: CALCIUM 8.2 mg/dL (8.5-10.1); CREATININE 5.9 mg/dL (0.6-1.0); GFR 7.2; POTASSIUM 5.3 mmol/L (3.5-5.1)
[2020-01-23 07:53] LABS: HEMATOCRIT 26.2 % (36.0-47.0); HEMOGLOBIN 8.3 g/dL (12.0-15.5); RED BLOOD COUNT 2.8 x10^6/uL (3.50-5.40); RED CELL DISTRIBUTION WIDTH 18.2 % (11.5-14.5); WHITE BLOOD COUNT 4.9 x10^3/uL (4.0-11.0)
--- NOTE | 2020-01-23 08:47 | PDOC ---
MODERATE SEDATION ASSESSMENT RISKS/ALTERNATIVES Risks/Alternatives Risks and alternatives of this type of sedation and procedure discussed with: RISK/ALTERNATIVES: Patient H & P ON CHART H & P H & P on chart and reviewed for co-morbid conditions and appropriate labs. H&P ON CHART: Yes STATUS PREG STATUS ASSESSED: N/A MEDS/ALLERGIES REVIEWED Meds/Allergies Reviewed Medications and Allergies including time and route of recently administered narcotics and sedatives. MEDS/ALLERGIES REVIEWED: Yes ASA RATING ASA RATING: III AIRWAY ASSESSMENT Airway Assessment Airway patency, oral function limitations, presence of caps, crowns, dentures, partials, and ability to extend neck assessed. AIRWAY ASSESSMENT: Yes MALLAMPATI SCORE MALLAMPATI SCORE: II PRE-SEDATION ASSESSMENT PRE-SEDATION ASSESSMENT: Yes DANELLE MATTHEWS MD Jan 23, 2020 08:47
--- NOTE | 2020-01-23 09:53 | CARD ---
MR#: [id number] Date of Study: 01/23/2020 Ordering Physician: DANELLE MATTHEWS, Referring Physician: DANELLE MATTHEWS, Tech: SCOOBY OLGUIN RTR APPROVED REPORT Technologist: SCOOBY OLGUIN RTR Nurse: Karey Haynes R.N. Procedure(s) performed: Right and left heart catheterization, selective coronary angiography MODERATE SEDATION TIME: 50 MINUTES FLUORO TIME: 4.5 MIN DOSE: 86.6 GYCM2 CONTRAST: 122CC VISI INDICATION The indication(s) include : Refractory dyspnea on exertion concerning for unstable angina. [facility] Clinical Frailty Scale [facility] Clinical Frailty Scale: Mildly Frail Heart Failure Heart Failure: No PROCEDURE NARRATIVE After explaining the risk, benefits and alternative options, informed consent was obtained from patie nt. Patient was brought to the cardiac Manager Secondary and her right groin was prepped and draped in the us ual fashion. 20 cc of 2% lidocaine was infiltrated into the skin and subcutaneous tissues for local anesthesia. Arterial and venous accesses were obtained in the right common femoral artery and vein r espectively and 6 and 8 [place] sheaths inserted. A 7.5 [place]lla catheter was advanced under fluoroscopic guidance and intracardiac pressures, oxygen saturations and cardiac output by Ginny metho d measured. Subsequently, 6 [place] JL4 and 6 [place] JR4 catheters were used to perform selective ang iography of the left and right coronary arteries. 6 [place] pigtail catheter was used to perform left ventriculography. Patient tolerated the procedure well. Hemostasis was achieved using manual compr ession. There were no immediate complications. FINDINGS A. RIGHT HEART CATHETERIZATION 1. Intracardiac pressures: Mean right atrial pressure 14 mmHg, right ventricular pressure 72/4 mmHg, mean pulmonary capillary wedge pressure 21 mmHg, pulmonary artery pressure 76/19 mmHg with mean PA p ressure 44 mmHg consistent with moderate pulmonary hypertension. 2. Oxygen saturations: Right atrium 54.7%, pulmonary artery 57.2%, femoral arterial sheath 95.2%. N o evidence of intracardiac shunt. 3. Cardiac output by Ginny method 3.36 L/min. B. LEFT HEART CATHETERIZATION 1. Hemodynamics: Left ventricular end-diastolic pressure 20 mmHg. No pullback gradient across the a ortic valve. 2. Left ventriculography: Low normal left ventricle systolic function with ejection fraction estimat ed at 50%. No significant mitral regurgitation seen. 3. Coronary angiography: a. The left main coronary artery arose from the left sinus of Valsalva, gave rise to the left anteri or descending and left circumflex arteries and did not show any significant stenosis. b. The left anterior descending artery did not show any significant stenosis. c. The left circumflex artery showed chronic total occlusion in the proximal segment with distal rec onstitution of obtuse marginal branch from left to left collaterals. d. The right coronary artery was a large and dominant vessel arising from the right sinus of Valsalv a that did not show any significant stenosis. Conclusion 1. Severe single-vessel coronary disease, chronic total occlusion involving the left circumflex deborah ry with left to left collaterals reconstituting the obtuse marginal branch. 2. Low normal left ventricle systolic function with ejection fraction estimated at 50%. 3. Elevated left and right-sided filling pressures with moderate pulmonary hypertension, mean PA pre ssure 44 mmHg. 4. No evidence of intracardiac shunt. Recommendations Optimization of medical therapy. Signed by : Danelle Matthews, Electronically Approved : 01/23/2020 09:52:31
--- NOTE | 2020-01-23 13:59 | NUR ---
Discharge Note: NILESH SUAZO Discharge instructions and discharge home medications reviewed with Patient and daughter; and a copy given. All questions have been answered and understanding verbalized. The following instructions and handouts were given: Moderate sedation, Groin site care, and cardiac cath Discontinued lines and drains: right hand IV dc'd and tip intact. Patient discharged to home with daughter via personal vehicle.
== END | disposition home or self-care (01) ==
LOC: CCL 06:59
PROVIDERS: ATTEND Internal Medicine Cardiovascular Disease
DX: R06.09 Other forms of dyspnea (principal); I25.110 Atherosclerotic heart disease of native coronary artery with unstable angina pectoris; I13.2 Hypertensive heart and chronic kidney disease with heart failure and with stage 5 chronic kidney disease, or end stage renal disease; I50.9 Heart failure, unspecified; N18.6 End stage renal disease; E78.00 Pure hypercholesterolemia, unspecified; J44.9 Chronic obstructive pulmonary disease, unspecified; M19.90 Unspecified osteoarthritis, unspecified site; F41.9 Anxiety disorder, unspecified; F32.9 Major depressive disorder, single episode, unspecified; E66.9 Obesity, unspecified; E03.9 Hypothyroidism, unspecified; Z99.2 Dependence on renal dialysis; Z87.891 Personal history of nicotine dependence; Z90.710 Acquired absence of both cervix and uterus; Z98.890 Other specified postprocedural states; Z79.899 Other long term (current) drug therapy; Z88.8 Allergy status to other drugs, medicaments and biological substances; Z68.30 Body mass index [BMI] 30.0-30.9, adult; Z83.3 Family history of diabetes mellitus; Z82.49 Family history of ischemic heart disease and other diseases of the circulatory system
CPT/HCPCS: 36415; 80048; 85027; 85610; 93460; 99152; 99153; C1769; C1773; C1892; J1644; J2250; J3010; J3490; Q9967

== ENCOUNTER → 2020-04-08 | Outpatient (CLI) | payer MEDICARE, OTHER ==
[~2020-04-08] VITALS: Ht 162.6 cm; Wt 54.4 kg
[~2020-04-08] MED LIST changes: -CONTRAST GIVEN. MC PRN; +HEPARIN for IV BOLUS 10,000 UNIT/10 ML VIAL. IV ONE; +HEPARIN for IV BOLUS 10,000 UNIT/10 ML VIAL. ONE; -IV 1/2 NORMAL SALINE 1,000 ML IV SCH; -LIDOCAINE 1% Multi-Dose 20 ML VIAL. INJ ONE; -LIDOCAINE 1% Multi-Dose 20 ML VIAL. ONE; +LIDOCAINE WITH 8.4% SOD BICARB 3 ML DISP.SYRIN. IJ ONE; +LIDOCAINE WITH 8.4% SOD BICARB 3 ML DISP.SYRIN. ONE; -LISI-334 PO; +LISI20TA18 PO; +VANC1VIA34 MC; -VANC1VIA38 MC
[2020-04-08 07:38] VITALS: BP 151/63
[2020-04-08 08:37] LABS: CALCIUM 8.6 mg/dL (8.5-10.1); CREATININE 5.1 mg/dL (0.6-1.0); GFR 8.5; POTASSIUM 4.4 mmol/L (3.5-5.1)
[2020-04-08 08:38] LABS: BASO % 1 % (0-3); EOS # 0.2 x10^3/uL (0.0-0.7); EOS % 3 % (0-3); HEMATOCRIT 34.4 % (36.0-47.0); HEMOGLOBIN 10.9 g/dL (12.0-15.5); LYMPH # 0.4 x10^3/uL (1.0-4.8); LYMPH % 7 % (24-48); MEAN CORPUSCULAR HEMOGLOBIN 28 pg (25-35); MEAN CORPUSCULAR HGB CONC 32 g/dL (31-37); MEAN CORPUSCULAR VOLUME 90 fL (79-100); MONO # 0.5 x10^3/uL (0.0-1.1); MONO % 8 % (0-9); NEUT # 5.1 x10^3/uL (1.8-7.7); NEUT % 82 % (31-73); PLATELET COUNT 181 x10^3/uL (140-400); RED BLOOD COUNT 3.84 x10^6/uL (3.50-5.40); WHITE BLOOD COUNT 6.2 x10^3/uL (4.0-11.0)
[2020-04-08 08:45] LABS: ALBUMIN 3.4 g/dL (3.4-5.0); ALBUMIN/GLOBULIN RATIO 0.8 (1.0-1.7); TOTAL BILIRUBIN 1.2 mg/dL (0.2-1.0); TOTAL PROTEIN 7.8 g/dL (6.4-8.2)
[2020-04-08 08:52] LABS: PROTHROMBIN TIME PATIENT 14.3 SEC (11.7-14.0)
[2020-04-08 10:07] VITALS: BP 124/58
[2020-04-08 10:25] VITALS: BP 124/65
[2020-04-08 10:45] VITALS: BP 132/62
[2020-04-08 11:00] VITALS: BP 134/60
[2020-04-08 11:15] VITALS: BP 121/58
--- NOTE | 2020-04-08 11:35 | NUR ---
Patient's son driving patient home. All belongings w/ patient at time of d/c. Taken to vehicle via wheelchair. No bleeding at site, VS stable. PIV removed. Instructions provided on site care, sedation. Son present. No questions at time of d/c.
--- NOTE | 2020-04-08 15:27 | RAD ---
04/08/2020 1. Left upper extremity AV fistulogram 2. Balloon angioplasty of left subclavian vein stenosis Discussion The procedure was explained in its entirety to the patient or the patients designated retail representative by a member of the treatment team, including a discussion of the risks, benefits and commonly accepted alternatives to the procedure, as well as the expected consequences of no therapy whatsoever. Discussion of the risks included, but was not limited to, those that are most frequent and those that are rare but possibly severe or life-threatening, as well as the possibility of unforeseen complications. All elements of maximal sterile barrier technique including the use of a cap, mask, sterile gown, sterile gloves, large sterile sheet, appropriate hand hygiene, and 2% chlorhexidine for cutaneous antisepsis (or acceptable alternative antiseptic per current guidelines) were followed for this procedure. Ultrasound evaluation demonstrates a left upper extremity AV graft to be patent. The graft was accessed directed towards venous outflow using micropuncture technique and direct ultrasound guidance. Reference ultrasound images were saved the medical record. Fistulograms were obtained. The graft is widely patent. The arterial anastomosis patent. No significant stenosis within the previously placed covered stent is seen at the venous anastomosis. The venous anastomosis remains widely patent. However, today's radiograph and appears to be short segment significant stenosis in the subclavian vein at the level of the angle of the clavicle. This is treated with balloon angioplasty to 10 mm which improved flow. No other hemodynamically significant stenoses were identified. Sheath was removed over pursestring sutures. Manual pressure was held. No immediate complications were identified. Fluoro Time: 4.4 min Dose: 97 Gycm2 Sedation Time: 40 min The procedures performed under conscious sedation including continuous cardiopulmonary monitoring via dedicated sedation nurse. Fzsh-yj-cofk sedation time: 40 minutes Impression: Left subclavian vein stenosis treated with balloon angioplasty. Otherwise patent left upper extremity AV graft
== END | disposition home or self-care (01) ==
LOC: INTRAD 06:57
PROVIDERS: ATTEND Internal Medicine Nephrology
DX: I87.1 Compression of vein (principal); I13.2 Hypertensive heart and chronic kidney disease with heart failure and with stage 5 chronic kidney disease, or end stage renal disease; I50.9 Heart failure, unspecified; E11.22 Type 2 diabetes mellitus with diabetic chronic kidney disease; N18.6 End stage renal disease; J44.9 Chronic obstructive pulmonary disease, unspecified; E78.00 Pure hypercholesterolemia, unspecified; E66.9 Obesity, unspecified; M19.90 Unspecified osteoarthritis, unspecified site; F41.9 Anxiety disorder, unspecified; F32.9 Major depressive disorder, single episode, unspecified; E03.9 Hypothyroidism, unspecified; Z99.2 Dependence on renal dialysis; Z90.49 Acquired absence of other specified parts of digestive tract; Z90.710 Acquired absence of both cervix and uterus; Z98.890 Other specified postprocedural states; Z79.82 Long term (current) use of aspirin; Z79.899 Other long term (current) drug therapy; Z88.8 Allergy status to other drugs, medicaments and biological substances; Z68.20 Body mass index [BMI] 20.0-20.9, adult
CPT/HCPCS: 36415; 36902; 80053; 85025; 85610; 99152; 99153; C1725; C1769; C1892; C1894; J1644; J2250; J3010; J3490; Q9967; 36901

== ENCOUNTER 2020-05-14 09:33 | Day surgery (SDC) | payer MEDICARE, OTHER ==
[~2020-05-14] VITALS: Ht 144.8 cm; Wt 63.0 kg
[~2020-05-14 09:33] MED LIST changes: +CIPROFLOXACIN 0.3% OPHTH SOLUTION 5ML BOTTLE. OS ONE; +DEXAMETHASONE SOD PHOS 4 MG/ML VIAL ONE; +GENTAMICIN SULFATE/PF 4 MG, EPINEPHrine 0.5 MG in BALANCED SALT IRR SOLN (BAG) 500 ML IO ONE; -HEPARIN for IV BOLUS 10,000 UNIT/10 ML VIAL. IV ONE; -HEPARIN for IV BOLUS 10,000 UNIT/10 ML VIAL. ONE; +HYDROmorphone 2 MG/ML VIAL IVP PRN; +INSULIN LISPRO 100 UNIT/ML 3ML VIAL for OP,RR ONLY. SQ PRN; -IODIXANOL 320 MG/ML 100 ML VIAL. IART ONE; -IODIXANOL 320 MG/ML 100 ML VIAL. ONE; +IV RINGERS,LACTATED 1000ML 1,000 ML IV SCH; +LIDOCAINE 2% JELLY 6ML IN APPLICATOR. OS ONE; -LIDOCAINE WITH 8.4% SOD BICARB 3 ML DISP.SYRIN. IJ ONE; -LIDOCAINE WITH 8.4% SOD BICARB 3 ML DISP.SYRIN. ONE; -MIDAZOLAM HCL/PF 2 MG/2 ML VIAL. IV ONE; +MORPHINE SULFATE 2 MG/ML VIAL. IVP PRN; +ONDANSETRON PF 4 MG/2 ML VIAL. ONE; +PROCHLORPERAZINE 10 MG/2 ML VIAL. IVP PRN; +PROPARACAINE 0.5% OPHTH SOLUTION 15ML BOTTLE. OS ONE; +ROCURONIUM 50 MG/5 ML VIAL. ONE; -VANC1VIA34 MC; +VANC1VIA38 MC; -fentaNYL PF VIAL 100 MCG/2 ML VIAL IV ONE; +fentaNYL PF VIAL 100 MCG/2 ML VIAL IVP PRN; -fentaNYL PF VIAL 100 MCG/2 ML VIAL ONE; +fentaNYL PF VIAL 250 MCG/5 ML VIAL ONE
[2020-05-14] MEDS ORDERED: IV NORMAL SALINE 1000ML BAG 1,000 ML IV ONE (10:15)
[2020-05-14] MEDS: PHENYLEPHRINE 10% OPHTH SOLUTION 5ML BOTTLE. OS SCH ×3 (10:35→10:45)
[2020-05-14] MEDS: CYCLOPENTOLATE 2% OPHTH SOLUTION 2ML BOTTLE. OS SCH ×3 (10:35→10:45)
[2020-05-14] MEDS ORDERED: INSULIN LISPRO 100 UNIT/ML 3ML VIAL for OP,RR ONLY. SQ ONE (10:40)
[2020-05-14] MEDS ORDERED: MIDAZOLAM HCL/PF 2 MG/2 ML VIAL. ONE (11:11)
[2020-05-14] MEDS ORDERED: LIDOCAINE 1% PF 2 ML VIAL. ONE (11:38)
[2020-05-14] MEDS ORDERED: TRYPAN BLUE 0.06% INTRAOCULAR 0.5 ML SYRINGE. ONE (11:38)
[2020-05-14] MEDS ORDERED: LIDOCAINE 2% JELLY 6ML IN APPLICATOR. ONE (11:38)
[2020-05-14] MEDS ORDERED: NEO/POLYMYX/DEXAMETH OPHTH OINTMENT 3.5GM TUBE. ONE (11:38)
[2020-05-14] MEDS ORDERED: CHONDROIT-SOD-HYALURONATE KIT. ONE (11:39)
[2020-05-14] MEDS ORDERED: CHONDROITIN-SOD-HYALURONATE 0.5 ML DISP.SYRIN. ONE (11:39)
[2020-05-14] MEDS ORDERED: LIDOCAINE 1%/PHENYLEPH 1.5% PF OPHTH 1 ML VIAL. ONE (11:42)
[2020-05-14 12:24] VITALS: BP 139/64
--- NOTE | 2020-05-14 12:52 | OP ---
DATE OF SURGERY: 05/14/2020 PREOPERATIVE DIAGNOSES: 1. 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 2. Incipient cataract of the left eye. SURGEON: Tiffany Kay MD ANESTHESIA: Topical with monitored anesthesia care. DESCRIPTION OF PROCEDURE: The left eye was prepped with Betadine in the usual sterile fashion and draped. A paracentesis was performed followed by instillation of preservative-free phenylephrine admixed with lidocaine and balanced salt solution. Air was injected in the anterior chamber and VisionBlue was used to stain the anterior capsule as there was a poor red reflex due to the advanced cortical and nuclear and posterior subcapsular cataract. A temporal clear corneal incision was made and viscoelastic was used to evacuate the VisionBlue. The head and microscope were then repositioned and the infratemporal trabecular meshwork was visualized and the iStent was brought on the field and 2 stents were placed in the inferior nasal quadrant of the trabecular meshwork. The head and microscope were then repositioned and a capsulorrhexis was then adequately visualized and performed. Balanced salt solution was used to perform hydrodissection and the phacoemulsification handpiece used to remove the nucleus in a modified stop and chop fashion. The I/A handpiece was used to remove the remainder of the cortex. Viscoelastic was injected in the capsular bag and an Ermias model [id number] with a power of 24.5 diopters was placed into the capsular bag. Balanced salt solution was used to hydrate the corneal wounds and the viscoelastic evacuated with the I/A handpiece. Once no leak was noted, Maxitrol was placed on the eye and the eye shielded and the patient was sent to the recovery room uneventfully. TIFFANY AKY MD DR: BENNY/nataliya JOB#: [id number] / [id number]
== END 2020-05-14 12:55 | disposition home or self-care (01) ==
LOC: SURG 09:33
PROVIDERS: ATTEND Ophthalmology
DX: E11.36 Type 2 diabetes mellitus with diabetic cataract (principal); H40.10X1 Unspecified open-angle glaucoma, mild stage; H25.092 Other age-related incipient cataract, left eye; I13.2 Hypertensive heart and chronic kidney disease with heart failure and with stage 5 chronic kidney disease, or end stage renal disease; I50.9 Heart failure, unspecified; N18.6 End stage renal disease; I25.10 Atherosclerotic heart disease of native coronary artery without angina pectoris; J44.9 Chronic obstructive pulmonary disease, unspecified; E11.22 Type 2 diabetes mellitus with diabetic chronic kidney disease; E66.9 Obesity, unspecified; E03.9 Hypothyroidism, unspecified; M19.90 Unspecified osteoarthritis, unspecified site; F41.9 Anxiety disorder, unspecified; F32.9 Major depressive disorder, single episode, unspecified; Z79.899 Other long term (current) drug therapy; Z79.82 Long term (current) use of aspirin; Z79.84 Long term (current) use of oral hypoglycemic drugs; Z90.49 Acquired absence of other specified parts of digestive tract; Z98.890 Other specified postprocedural states; Z88.8 Allergy status to other drugs, medicaments and biological substances; Z83.3 Family history of diabetes mellitus; Z20.822 Contact with and (suspected) exposure to COVID-19
CPT/HCPCS: 66982; 82962; 87426; C1783; C9803; J0171; J1580; J1815; J2250; J3490; U0003; J1100; J2405; J3010

== ENCOUNTER → 2020-10-15 | Outpatient (CLI) | payer MEDICARE, OTHER ==
[2020-09-30 15:00] VITALS: BP 106/44
[~2020-10-15] MED LIST changes: +ATOR40TA59 PO; -CIPROFLOXACIN 0.3% OPHTH SOLUTION 5ML BOTTLE. OS ONE; +CYCL10TA2 PO; -DEXAMETHASONE SOD PHOS 4 MG/ML VIAL ONE; +FOLI0.8T21 PO; -GENTAMICIN SULFATE/PF 4 MG, EPINEPHrine 0.5 MG in BALANCED SALT IRR SOLN (BAG) 500 ML IO ONE; -HYDROmorphone 2 MG/ML VIAL IVP PRN; -INSULIN LISPRO 100 UNIT/ML 3ML VIAL for OP,RR ONLY. SQ PRN; +ISOS30TA68 PO; -IV RINGERS,LACTATED 1000ML 1,000 ML IV SCH; -LIDOCAINE 2% JELLY 6ML IN APPLICATOR. OS ONE; +METO25TA4 PO; -MIDAZOLAM HCL/PF 2 MG/2 ML VIAL. ONE; -MORPHINE SULFATE 2 MG/ML VIAL. IVP PRN; +NAPR-695 PO; -ONDANSETRON PF 4 MG/2 ML VIAL. ONE; -PROCHLORPERAZINE 10 MG/2 ML VIAL. IVP PRN; -PROPARACAINE 0.5% OPHTH SOLUTION 15ML BOTTLE. OS ONE; +REGADENOSON 0.4 MG/5 ML DISP.SYRIN. IV ONE; -ROCURONIUM 50 MG/5 ML VIAL. ONE; +VANC1VIA34 MC; -VANC1VIA38 MC; -fentaNYL PF VIAL 100 MCG/2 ML VIAL IVP PRN; -fentaNYL PF VIAL 250 MCG/5 ML VIAL ONE
--- NOTE | 2020-10-15 13:44 | RAD ---
MR#: [id number] Date of Study: 10/15/2020 Ordering Physician: DANELLE MATTHEWS, Referring Physician: ALICIA MATHEWS Tech: RT Reva (R) (N) APPROVED REPORT Test Type: Pharmacological Stress Nurse/Tech: ALY GOULD Test Indications: CHEST PAIN Cardiac History: HTN, SEE EMR Medications: SEE EMR Medical History: ESRD-HD, SEE EMR Resting ECG: SR W/ T-WAVE INVERSION NOTED Resting Heart Rate: 96 bpm Resting Blood Pressure: 158/67mmHg Pretest Chest Pain: No chest pain Nurse/Tech Notes S1,S2, LUNGS CTA, VSS. PT DENIED CHEST PAIN OR SHORTNESS OF BREATH. Consent: The procedure was explained to the patient in lay terms. Informed consent was witnessed. Loy eout was entered into [employer]. History and Stress Test performed by [facility] [employer]. Details Pharmacologic stress testing was performed using 0.4mg per 5ml of regadenoson given intravenously ove r 7-10 seconds. Stress Symptoms PT C/O SHORTNESS OF BREATH DURING THE INITIAL INJECTION, DENIED ANY CHEST PAIN, VSS, AFTER TESTING CO MPLETE PT WAS NAUSEOUS AND VOMITTED A LITTLE. PT APPARENTLY HAD AN ENSURE PRIOR TO EXAM. POST EXERCISE Reason for Termination: Infusion complete Max HR: 121 bpm Max Blood Pressure: 154/68mmHg Blood Pressure response to exercise: Normal blood pressure response during stress. Heart Rate response to exercise: WNL Chest Pain: No. INTERPRETATION Stress EKG Conclusion: The resting EKG shows a sinus rhythm with ST-T wave changes. The stress EKG shows no significant changes from baseline. No EKG evidence of stress-induced ischemia. Imaging Protocol IMAGE PROTOCOL: Rest Tc-99m/stress Tc-99m 1 day Rest: Stress: Viability: Radiopharm.Tc99m ZygktyxzfTo38x Sestamibi Dose10.2mCi 33mCi Duration 15min. 10min. Img Date 10/15/2020 10/15/2020 Inj-Img Rerz77pri. 60min. Rest Admin Site:IV - Right HandAdministrator:Krystle Ocampo, RT (R)(N) Stress Admin Site: IV - Right HandAdministrator: [facility] [employer] STRESS DATA End Diast. Vol.119.0mlAv. Heart Rate99.0bpm End Syst. Vol.63.0mlCO Index BSA0.0L/min Myocardial Ilbt926.0gEject. Baobsgqb99.0% Stress Rates Pk. Fill Rate1.98EDV/secLVtime Pk. Fill 186.63msec Pk. Empty Rate3.96ESV/secLVtime Pk. Pufvn552.23msec 03/21 Pk. Fill1.01EDV/sec Stress Scores Regional WT3.00Summed WT30.00 Regional WM0.00Summed WM8.00 LV Perfusion The stress scans show a lateral wall defect. The rest scans show a lateral wall defect. Nuclear imaging shows a largely fixed lateral wall defect. This is consistent with a previous infarc t with some luz-infarct reversible ischemia. Wall Motion Left ventricular systolic function shows a lateral wall motion abnormality and an ejection fraction o f 45%. LV Perf. Quant 17 Seg. SSS14.00 17 Seg. SRS12.00 17 Seg. SDS2.00 Stress Defect Extent (% LAD)0.00Rest Defect Extent (% LAD)0.00Rev. Defect Extent (% LAD)0.00 Stress Defect Extent (% LCX) 96.30Rest Defect Extent (% LCX)92.50Rev. Defect Extent (% LCX)22.50 Stress Defect Extent (% RCA)0.00Rest Defect Extent (% RCA)0.00Rev. Defect Extent (% RCA)0.00 Stress Defect Extent (% CHRIS)23.90Rest Defect Extent (% CRHIS)19.30Rev. Defect Extent (% CHRIS)6.70 Conclusion 1. Baseline abnormal EKG but no EKG evidence of stress-induced ischemia. 2. Nuclear imaging shows a lateral wall infarct with some luz-infarct reversible ischemia. 3. Left ventricular systolic function shows a lateral wall defect and an ejection fraction of 45%. 4. Moderate risk Lexiscan nuclear stress test. Signed by : Connor Silva MD Electronically Approved : 10/15/2020 13:44:10
== END ==
LOC: NM 08:52
PROVIDERS: ATTEND Internal Medicine Cardiovascular Disease
DX: R94.31 Abnormal electrocardiogram [ECG] [EKG] (principal); I21.9 Acute myocardial infarction, unspecified; I25.9 Chronic ischemic heart disease, unspecified
CPT/HCPCS: 78452; 93017; A9500; J2785

== ENCOUNTER 2021-02-24 08:11 | Outpatient (CLI) | payer MEDICARE, OTHER ==
[~2021-02-24] VITALS: Ht 157.5 cm; Wt 72.7 kg
[~2021-02-24 08:11] MED LIST changes: +CYCL10TA19 PO; -CYCL10TA2 PO; -REGADENOSON 0.4 MG/5 ML DISP.SYRIN. IV ONE; -VANC1VIA34 MC; +VANC1VIA37 MC
[2021-02-24] MEDS ORDERED: APIX5TAB PO (08:36)
[2021-02-24] MEDS ORDERED: CALC667T4 PO (08:36)
[2021-02-24] MEDS ORDERED: AMLO-187 PO (08:36)
[2021-02-24] MEDS ORDERED: IODIXANOL 320 MG/ML 100 ML VIAL. ONE (08:37)
[2021-02-24] MEDS ORDERED: LIDOCAINE WITH 8.4% SOD BICARB 3 ML DISP.SYRIN. ONE (08:37)
[2021-02-24] MEDS ORDERED: MIDAZOLAM HCL/PF 2 MG/2 ML VIAL. IV ONE (08:45)
[2021-02-24] MEDS ORDERED: LIDOCAINE WITH 8.4% SOD BICARB 3 ML DISP.SYRIN. IJ ONE (08:45)
[2021-02-24] MEDS ORDERED: IODIXANOL 320 MG/ML 100 ML VIAL. IART ONE (08:45)
[2021-02-24 08:49] VITALS: BP 147/72
[2021-02-24] MEDS ORDERED: MIDAZOLAM HCL/PF 2 MG/2 ML VIAL. ONE (08:52)
[2021-02-24] MEDS ORDERED: HEPARIN for IV BOLUS 10,000 UNIT/10 ML VIAL. ONE (08:52)
[2021-02-24 08:55] LABS: BASO % 1 % (0-3); EOS # 0.1 x10^3/uL (0.0-0.7); EOS % 3 % (0-3); HEMATOCRIT 32.9 % (36.0-47.0); LYMPH # 0.5 x10^3/uL (1.0-4.8); LYMPH % 11 % (24-48); MEAN CORPUSCULAR HEMOGLOBIN 28 pg (25-35); MEAN CORPUSCULAR HGB CONC 31 g/dL (31-37); MEAN CORPUSCULAR VOLUME 91 fL (79-100); MONO # 0.4 x10^3/uL (0.0-1.1); MONO % 8 % (0-9); NEUT # 3.7 x10^3/uL (1.8-7.7); NEUT % 77 % (31-73); PLATELET COUNT 168 x10^3/uL (140-400); RED BLOOD COUNT 3.61 x10^6/uL (3.50-5.40); RED CELL DISTRIBUTION WIDTH 19.1 % (11.5-14.5); WHITE BLOOD COUNT 4.8 x10^3/uL (4.0-11.0)
[2021-02-24] MEDS ORDERED: MORPHINE SULFATE 4 MG/ML INJ. IVP ONE (09:00)
[2021-02-24 09:07] LABS: PROTHROMBIN TIME PATIENT 15.1 SEC (11.7-14.0)
[2021-02-24] MEDS ORDERED: MORPHINE SULFATE 4 MG/ML INJ. ONE (09:12)
[2021-02-24 09:14] LABS: CALCIUM 8.3 mg/dL (8.5-10.1); CREATININE 3.5 mg/dL (0.6-1.0); POTASSIUM 3.7 mmol/L (3.5-5.1)
[2021-02-24 10:12] VITALS: BP 154/73
[2021-02-24 10:25] VITALS: BP 155/73
[2021-02-24 10:40] VITALS: BP 156/79
[2021-02-24 10:55] VITALS: BP 153/76
[2021-02-24 11:09] VITALS: BP 156/76
--- NOTE | 2021-02-24 11:14 | NUR ---
discharge instructions reviewed with patient and family. PIV dc'd. Pt ambulated and tolerated PO. Pt discharged to home with family
--- NOTE | 2021-02-24 12:59 | RAD ---
1. Left upper extremity AV fistulogram 2. Balloon angioplasty of left subclavian venous stenosis Discussion: 66-year-old female with left upper extremity AV graft presents from the dialysis clinic w ith prolonged bleeding. Prior intervention approximately 1 year ago for a left subclavian stenosis no odalys. Prior occluded left upper extremity cephalic fistula noted. Stenting of the graft/outflow vein a nastomosis noted. Consent: The procedure was explained in its entirety to the patient or the patients designated repres entative by a member of the treatment team, including a discussion of the risks, benefits and commonl y accepted alternatives to the procedure, as well as the expected consequences of no therapy whatsoev er. Discussion of the risks included, but was not limited to, those that are most frequent and thos e that are rare but possibly severe or life-threatening, as well as the possibility of unforeseen com plications. The left upper extremity was prepped and draped using maximum sterile barrier technique. 1% lidocaine was administered for local anesthesia. Ultrasound evaluation demonstrates the graft to be grossly pa tent. The graft was accessed directed towards venous outflow using micropuncture technique. A 4 Frenc h sheath was placed. Venograms were obtained. The arterial anastomosis is patent. The graft is patent . The venous anastomosis appears patent. There is a recurrent weblike stenosis in the subclavian outf low vein with multiple filling collaterals. No other significant stenoses is identified. A 7 Bulgarian s semaj was placed. The stenosis was traversed with a guidewire and balloon dilated to 10 mm high-press ure balloon. Significantly improved morphology and flow with resolution of previously seen collateral s. A pursestring suture was placed as the sheath was removed. Sterile dressings were applied. No imme diate complications were identified. Sedation: The procedure was performed under conscious sedation including continuous cardiopulmonary m onitoring via a dedicated sedation nurse.Kaqk-qe-pbnv sedation time: 30 minutes Fluoroscopy time 2.3 minutes Dose area product 41 [place] centimeter squared IMPRESSION: Recurrent subclavian vein stenosis again treated with high pressure balloon angioplasty. Electronically signed by: Rocael Arteaga MD (02/24/2021 12:57 PM) [id number]
== END 2021-02-24 11:27 | disposition home or self-care (01) ==
LOC: INTRAD 08:11
PROVIDERS: ATTEND Internal Medicine Nephrology
DX: I87.1 Compression of vein (principal); R79.1 Abnormal coagulation profile; I28.8 Other diseases of pulmonary vessels; I12.0 Hypertensive chronic kidney disease with stage 5 chronic kidney disease or end stage renal disease; E11.22 Type 2 diabetes mellitus with diabetic chronic kidney disease; N18.6 End stage renal disease; E78.00 Pure hypercholesterolemia, unspecified; J43.9 Emphysema, unspecified; E66.9 Obesity, unspecified; E03.9 Hypothyroidism, unspecified; F41.9 Anxiety disorder, unspecified; F32.9 Major depressive disorder, single episode, unspecified; M19.90 Unspecified osteoarthritis, unspecified site; Z79.82 Long term (current) use of aspirin; Z79.84 Long term (current) use of oral hypoglycemic drugs; Z79.899 Other long term (current) drug therapy; Z98.890 Other specified postprocedural states; Z88.1 Allergy status to other antibiotic agents; Z88.6 Allergy status to analgesic agent; Z88.8 Allergy status to other drugs, medicaments and biological substances
CPT/HCPCS: 36415; 36902; 36907; 76937; 80048; 85025; 85610; 99152; 99153; C1725; C1769; C1892; C1894; J1644; J2250; J2270; J3490; Q9967